=== PATIENT | male | born 1950 | race Caucasian/White ===

== ENCOUNTER 2018-03-03 05:12 | Inpatient (IN) | payer MEDICARE, BC ==
[2018-03-03 05:38] LABS: Basophils % (A) 0 %; Eosinophils # (A) 0.1 k/uL (0-0.7); Eosinophils % (A) 1 %; HCT 46.6 % (39.0-53.0); HGB 15.2 gm/dL (13.0-17.5); Lymphocytes # (A) 1.3 k/uL (1.0-4.8); Lymphocytes % (A) 15 %; MCH 30.3 pg (25.0-35.0); MCHC 32.7 g/dL (31.0-37.0); MCV 92.6 fL (80.0-100.0); Mean Platelet Volume 7.1; Monocytes # (A) 0.6 k/uL (0-1.0); Monocytes % (A) 6 %; Neutrophils # (A) 6.4 k/uL (1.3-7.7); Neutrophils % (A) 75 %; Platelet Count 219 k/uL (150-450); RBC 5.03 m/uL (4.30-5.90); RDW 13.4 % (11.5-15.5); WBC 8.6 k/uL (3.8-10.6)
--- NOTE | 2018-03-03 05:40 | ED ---
General Adult HPI - General Chief complaint: Chest Pain Stated complaint: Chest Pain Time Seen by Provider: 03/03/18 05:14 Source: patient, RN notes reviewed, old records reviewed Mode of arrival: ambulatory Limitations: no limitations - History of Present Illness Initial comments: 67-year-old male history of CAD status post stenting presents with chest pain and left arm numbness. Patient states his symptoms today are exactly the same as his previous heart attacks. He has been having some chest pain both at rest and with exertion over the past several weeks. He was seen by his dry cleaning checker who did a stress test. Patient was told that if his symptoms persist that he would need a heart catheterization. His most recent heart catheterization was in June 2017 where he had stenting of the obtuse marginal branch. He is a type II diabetic. Remote history of tobacco use. He is chest pain-free at the time my evaluation. His chest pain was resolved with nitroglycerin. Pain is described as a central chest pressure with radiation of the left arm. - Related Data Home Medications Medication Instructions Recorded Confirmed Canagliflozin [Invokana] 300 mg PO AC-BRKFST 01/28/16 03/03/18 Dulaglutide [Trulicity] 1.5 mg SQ WE 01/28/16 03/03/18 Lisinopril [Prinivil] 5 mg PO DAILY 06/18/17 03/03/18 Metoprolol Tartrate 25 mg PO DAILY 06/18/17 03/03/18 glipiZIDE XL [Glucotrol XL] 20 mg PO W/BRKFST 06/18/17 03/03/18 metFORMIN HCL 1,000 mg PO DAILY 06/18/17 03/03/18 Omeprazole 20 mg PO DAILY 06/25/17 03/03/18 Atorvastatin [Lipitor] 40 mg PO DAILY 03/03/18 03/03/18 Isosorbide Mononitrate ER [Imdur] 30 mg PO DAILY 03/03/18 03/03/18 Previous Rx's Medication Instructions Recorded Nitroglycerin Sl Tabs [Nitrostat] 0.4 mg SUBLINGUAL Q5M PRN #1 bottle 04/10/16 Aspirin EC [Ecotrin] 325 mg PO DAILY #30 tablet. 06/28/17 Prasugrel [Effient] 10 mg PO DAILY #30 tab 06/28/17 Tadalafil [Cialis] 20 mg PO ONCE PRN #0 06/28/17 Allergies Allergy/AdvReac Type Severity Reaction Status Date / Time Penicillins Allergy Unknown Rash/Hives Verified 03/03/18 05:17 Review of Systems ROS Statement: Those systems with pertinent positive or pertinent negative responses have been documented in the HPI. ROS Other: All systems not noted in ROS Statement are negative. Past Medical History Past Medical History: Coronary Artery Disease (CAD), Chest Pain / Angina, Diabetes Mellitus, GERD/Reflux, Hyperlipidemia, Hypertension, Myocardial Infarction ([place]) Additional Past Medical History / Comment(s): NIDDM, L ear deafness Last Myocardial Infarction Date:: 04/22/16 History of Any Multi-Drug Resistant Organisms: None Reported Past Surgical History: Ear Surgery, Heart Catheterization With Stent, Orthopedic Surgery, Tonsillectomy Additional Past Surgical History / Comment(s): 01/28/16 PTCA and stent and April 2016, L ear mastoid surgery, colonoscopies/polypectomies, L hand index finger amputated Past Anesthesia/Blood Transfusion Reactions: No Reported Reaction Date of Last Stent Placement:: 04/22/16 Past Psychological History: Anxiety Smoking Status: Former smoker Past Alcohol Use History: Occasional Past Drug Use History: None Reported - Past Family History Father Family Medical History: Cancer, Coronary Artery Disease (CAD) Additional Family Medical History / Comment(s): Father had CABG. He of esophageal cancer at the age of 79 yrs. Mother Family Medical History: Congestive Heart Failure (CHF), Osteoarthritis (OA) Additional Family Medical History / Comment(s): Mother is 86yrs old General Exam Limitations: no limitations General appearance: alert, in no apparent distress Head exam: Present: atraumatic, normocephalic Eye exam: Present: normal appearance, PERRL ENT exam: Present: normal exam Neck exam: Present: normal inspection. Absent: tenderness, meningismus Respiratory exam: Present: normal lung sounds bilaterally. Absent: respiratory distress, wheezes Cardiovascular Exam: Present: regular rate, normal rhythm GI/Abdominal exam: Present: soft. Absent: distended, tenderness, guarding Extremities exam: Present: normal inspection, normal capillary refill, other ( Bilateral DP pulses 2+ and symmetric). Absent: pedal edema Neurological exam: Present: alert, oriented X3, CN II-XII intact. Absent: motor sensory deficit Psychiatric exam: Present: normal affect, normal mood Skin exam: Present: warm, dry. 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 EKG Findings - EKG Comments: EKG Findings:: EKG: Normal sinus rhythm, inferior infarct with Q waves in inferior leads, no ST segment elevation or depression. T waves are upright in the precordial leads. Rate of 78, NM interval 168, QRS duration 84, QTC 4:30 Medical Decision Making - Medical Decision Making 67-year-old male presenting with chest pain. History is concerning for ACS. EKG shows Q waves in the inferior leads with no ST segment elevation. Patient' s CBC is unremarkable. Initial troponin is 0.015. Patient is given an aspirin , he is started on heparin. He will be admitted for cardiology evaluation. Diagnosis: Unstable angina. - Lab Data Result diagrams: 03/03/18 05:26 03/03/18 05:26 Lab Results 03/03/18 03/03/18 03/03/18 Range/Units 05:26 05:26 05:26 WBC 8.6 (3.8-10.6) k/uL RBC 5.03 (4.30-5.90) m/uL Hgb 15.2 (13.0-17.5) gm/dL Hct 46.6 (39.0-53.0) % MCV 92.6 (80.0-100.0) fL MCH 30.3 (25.0-35.0) pg MCHC 32.7 (31.0-37.0) g/dL RDW 13.4 (11.5-15.5) % Plt Count 219 (150-450) k/uL Neutrophils % 75 % Lymphocytes % 15 % Monocytes % 6 % Eosinophils % 1 % Basophils % 0 % Neutrophils # 6.4 (1.3-7.7) k/uL Lymphocytes # 1.3 (1.0-4.8) k/uL Monocytes # 0.6 (0-1.0) k/uL Eosinophils # 0.1 (0-0.7) k/uL Basophils # 0.0 (0-0.2) k/uL Sodium 140 (137-145) mmol/L Potassium 4.5 (3.5-5.1) mmol/L Chloride 102 (98-107) mmol/L Carbon Dioxide 22 (22-30) mmol/L Anion Gap 16 mmol/L BUN 27 H (9-20) mg/dL Creatinine 0.90 (0.66-1.25) mg/dL Est GFR (CKD-EPI)AfAm >90 (>60 ml/min/1.73 sqM) Est GFR (CKD-EPI)NonAf 89 (>60 ml/min/1.73 sqM) Glucose 132 H (74-99) mg/dL Calcium 10.2 (8.4-10.2) mg/dL Magnesium 2.2 (1.6-2.3) mg/dL Total Bilirubin 0.7 (0.2-1.3) mg/dL AST 27 (17-59) U/L ALT 34 (21-72) U/L Alkaline Phosphatase 90 (38-126) U/L Total Creatine Kinase 69 (55-170) U/L CK-MB (CK-2) 2.0 (0.0-2.4) ng/mL CK-MB (CK-2) Rel Index 2.9 Troponin I 0.015 (0.000-0.034) ng/mL NT-Pro-B Natriuret Pep pg/mL Total Protein 7.5 (6.3-8.2) g/dL Albumin 4.9 (3.5-5.0) g/dL Lipase 175 (23-300) U/L 03/03/18 Range/Units 05:26 WBC (3.8-10.6) k/uL RBC (4.30-5.90) m/uL Hgb (13.0-17.5) gm/dL Hct (39.0-53.0) % MCV (80.0-100.0) fL MCH (25.0-35.0) pg MCHC (31.0-37.0) g/dL RDW (11.5-15.5) % Plt Count (150-450) k/uL Neutrophils % % Lymphocytes % % Monocytes % % Eosinophils % % Basophils % % Neutrophils # (1.3-7.7) k/uL Lymphocytes # (1.0-4.8) k/uL Monocytes # (0-1.0) k/uL Eosinophils # (0-0.7) k/uL Basophils # (0-0.2) k/uL Sodium (137-145) mmol/L Potassium (3.5-5.1) mmol/L Chloride (98-107) mmol/L Carbon Dioxide (22-30) mmol/L Anion Gap mmol/L BUN (9-20) mg/dL Creatinine (0.66-1.25) mg/dL Est GFR (CKD-EPI)AfAm (>60 ml/min/1.73 sqM) Est GFR (CKD-EPI)NonAf (>60 ml/min/1.73 sqM) Glucose (74-99) mg/dL Calcium (8.4-10.2) mg/dL Magnesium (1.6-2.3) mg/dL Total Bilirubin (0.2-1.3) mg/dL AST (17-59) U/L ALT (21-72) U/L Alkaline Phosphatase (38-126) U/L Total Creatine Kinase (55-170) U/L CK-MB (CK-2) (0.0-2.4) ng/mL CK-MB (CK-2) Rel Index Troponin I (0.000-0.034) ng/mL NT-Pro-B Natriuret Pep 149 pg/mL Total Protein (6.3-8.2) g/dL Albumin (3.5-5.0) g/dL Lipase (23-300) U/L Critical Care Time Critical Care Time: Yes Disposition Clinical Impression: Unstable angina pectoris, Chest pain Disposition: ADMITTED IP TO THIS [facility] Condition: Stable Is patient prescribed a controlled substance at d/c from ED?: No Referrals: Francy Hermosillo DO [Primary Care Provider] - 1-2 days Decision to Admit Reason: Admit from EC Decision Date: 03/03/18 Decision Time: 07:01
[2018-03-03 05:48] LABS: ALT 34 U/L (21-72); AST 27 U/L (17-59); Albumin 4.9 g/dL (3.5-5.0); Alkaline Phosphatase 90 U/L (38-126); Anion Gap 16 mmol/L; Blood Urea Nitrogen 27 mg/dL (9-20); Calcium 10.2 mg/dL (8.4-10.2); Carbon Dioxide 22 mmol/L (22-30); Chloride 102 mmol/L (98-107); Glucose 132 mg/dL (74-99); Lipase 175 U/L (23-300); Magnesium 2.2 mg/dL (1.6-2.3); Potassium 4.5 mmol/L (3.5-5.1); Sodium 140 mmol/L (137-145); Total Bilirubin 0.7 mg/dL (0.2-1.3); Total Protein 7.5 g/dL (6.3-8.2)
--- NOTE | 2018-03-03 05:57 | XR ---
EXAMINATION TYPE: XR chest 2V DATE OF EXAM: 03/03/2018 COMPARISON: 06/25/2017 HISTORY: Chest pain TECHNIQUE: Frontal and lateral views of the chest are obtained. FINDINGS: Heart and mediastinum are normal. Lungs are clear. Diaphragm is normal. There are chest le ads. Bony thorax is intact. IMPRESSION: Normal chest. No change.
[2018-03-03] MEDS ORDERED: ASPIRIN 325 MG TAB PO STA (06:06)
[2018-03-03 06:17] LABS: Troponin I 0.015 ng/mL (0.000-0.034)
[2018-03-03] MEDS ORDERED: HEPARIN SODIUM,PORCINE 5,000 UNIT/ML 1 ML VIAL IV ONE (06:57)
[2018-03-03] MEDS ORDERED: NALOXONE 0.4 MG/ML 1 ML VIAL IV PRN (06:57)
[2018-03-03] MEDS ORDERED: ONDANSETRON 4 MG/2 ML VIAL IVP PRN (06:57)
[2018-03-03] MEDS ORDERED: HEPARIN SODIUM,PORCINE 5,000 UNIT/ML 1 ML VIAL IV PRN (06:57)
[2018-03-03] MEDS ORDERED: MORPHINE SULFATE 2 MG/ML SYRINGE IV PRN (06:57)
[2018-03-03] MEDS ORDERED: NITROGLYCERIN SL TABS 0.4 MG TAB SUBLINGUAL PRN ×2 (06:59→18:31)
[2018-03-03 07:07] LABS: INR 1.1 (<1.2); Prothrombin Time 10.4 sec (9.0-12.0)
[2018-03-03] MEDS: SODIUM CHLORIDE 0.9% 1,000 ML IV SCH ×2 (07:21→23:44)
[2018-03-03] MEDS: HEPARIN SOD,PORK IN 0.45% NACL 25,000 UNIT in 0.45% NACL 1 500ML.BAG IV SCH (07:25)
[2018-03-03 11:37] LABS: Glucose,Whole Blood 116 mg/dL (75-99)
[2018-03-03 12:24] LABS: Creatine Kinase 52 U/L (55-170)
[2018-03-03 12:36] LABS: Creatine Kinase MB 1.6 ng/mL (0.0-2.4); Troponin I <0.012 ng/mL (0.000-0.034)
--- NOTE | 2018-03-03 15:10 | P.HPIM ---
History of Present Illness H&P Date: 03/03/18 Chief Complaint: Chest pain This is a 67-year-old male with a known history of coronary artery disease with previous cardiac stent, 2 previous myocardial infarctions, diabetes mellitus type 2, smoking history, hyperlipidemia and hypertension. Last heart catheterization was in June 2017 in which she had stenting to the obtuse marginal branch. Patient presents to the emergency room with complaints of chest pressure on the right side of the chest that radiates across the chest with left arm numbness. He's had these symptoms off and on with both rest and exertion over the past several weeks. Patient had been seen by cardiology outpatient and he reports they did a stress test and was told there was some abnormality but to treat medically. And was told if symptoms recur that he may need a heart catheterization. 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 Symptoms continued to worsen and he decided to present to the ER early this morning. Patient reports improvement of his chest pain with nitroglycerin. Patient also reports having some nausea and shortness of breath. Denies any diaphoresis. Denies any cough , fever or chills. Denies any vomiting bowel movement changes or urinary symptoms. Patient reports that his symptoms feel similar to when he had his previous heart attacks. He's been admitted to the cardiology floor started on IV heparin and cardiology has been consulted. First 2 troponins are negative. EKG had shown a normal sinus rhythm with an inferior infarct, age undetermined. No significant ST changes noted. Chest x-ray was negative. Patient is also been on antibiotics recently for a left great toe cellulitis. Patient's toenail is turning black. He reports no injury. But he was being treated for a cellulitis outpatient setting. She reports no open wound. And reports being on 2 different antibiotics but is unsure of the name of the antibiotic. Nursing staff is calling patient's pharmacy to get the names of the medications. Review of Systems Please refer to HPI otherwise unremarkable Past Medical History Past Medical History: Coronary Artery Disease (CAD), Chest Pain / Angina, Diabetes Mellitus, GERD/Reflux, Hyperlipidemia, Hypertension, Myocardial Infarction ([place]) Additional Past Medical History / Comment(s): NIDDM, cardiac murmur, 2 previous MIs, L ear deafness, benign colon polyps, pt states discolored L great toe currently and on antibiotic for this. Last Myocardial Infarction Date:: 04/22/16 History of Any Multi-Drug Resistant Organisms: None Reported Past Surgical History: Adenoidectomy, Ear Surgery, Heart Catheterization With Stent, Orthopedic Surgery, Tonsillectomy Additional Past Surgical History / Comment(s): 01/28/16 PTCA and stent and April 2016 and in June 2017, L ear mastoid surgery, colonoscopies/ polypectomies, L hand index finger amputated Past Anesthesia/Blood Transfusion Reactions: No Reported Reaction Date of Last Stent Placement:: 06/28/17 Past Psychological History: Anxiety Additional Psychological History / Comment(s): Pt resides with his spouse of 43 yrs. He is independent. Smoking Status: Former smoker Past Alcohol Use History: Occasional Additional Past Alcohol Use History / Comment(s): Pt started smoking in 1985- 1 or 2 cigarettes a day. He quit in 1995. Past Drug Use History: None Reported - Past Family History Father Family Medical History: Cancer, Coronary Artery Disease (CAD) Additional Family Medical History / Comment(s): Father had CABG prior to age 50yrs. He of esophageal cancer at the age of 79 yrs. Mother Family Medical History: Congestive Heart Failure (CHF), Osteoarthritis (OA) Additional Family Medical History / Comment(s): Mother of CHF at 86yrs of age. Medications and Allergies Home Medications Medication Instructions Recorded Confirmed Type Canagliflozin [Invokana] 300 mg PO AC-BRKFST 01/28/16 03/03/18 History Dulaglutide [Trulicity] 1.5 mg SQ FR 01/28/16 03/03/18 History Nitroglycerin Sl Tabs [Nitrostat] 0.4 mg SUBLINGUAL Q5M PRN #1 bottle 04/10/16 03/03/18 Rx Lisinopril [Prinivil] 5 mg PO DAILY 06/18/17 03/03/18 History Metoprolol Tartrate 25 mg PO DAILY 06/18/17 03/03/18 History glipiZIDE XL [Glucotrol XL] 20 mg PO DAILY 06/18/17 03/03/18 History metFORMIN HCL 1,000 mg PO DAILY 06/18/17 03/03/18 History Omeprazole 20 mg PO DAILY 06/25/17 03/03/18 History Aspirin EC [Ecotrin] 325 mg PO DAILY #30 tablet. 06/28/17 03/03/18 Rx Prasugrel [Effient] 10 mg PO DAILY #30 tab 06/28/17 03/03/18 Rx Tadalafil [Cialis] 20 mg PO ONCE PRN #0 06/28/17 03/03/18 Rx Atorvastatin [Lipitor] 40 mg PO DAILY 03/03/18 03/03/18 History Isosorbide Mononitrate ER [Imdur] 30 mg PO DAILY 03/03/18 03/03/18 History Allergies Allergy/AdvReac Type Severity Reaction Status Date / Time Penicillins Allergy Unknown Rash/Hives Verified 03/03/18 07:25 Physical Exam Vitals: Vital Signs Temp Pulse Pulse Resp BP BP Pulse Ox 03/03/18 10:30 97.2 F L 63 14 107/59 97 03/03/18 09:49 68 18 119/56 99 03/03/18 08:00 68 18 119/75 99 03/03/18 07:20 70 18 122/66 99 03/03/18 05:24 78 03/03/18 05:14 98.1 F 83 18 123/73 97 Intake and Output 03/02/18 03/03/18 03/03/18 22:59 06:59 14:59 Intake Total 0 Balance 0 Intake: Oral 0 Other: Weight 81.647 kg Head normocephalic Neck supple Lungs clear to auscultation bilaterally no wheezing or crackles Heart regular rate and rhythm S1-S2, no rub or gallop Abdomen is soft nontender nondistended positive bowel sounds no hepatosplenomegaly Extremities no edema of the lower extremities. Left great toenail is discolored and blackish in color. It appears to be improving cellulitis changes around the left toe nail. Patient's PCP had marked to the cellulitis area and this is now decreased. No open sores. Mildly tender with palpation of the toenail Neuro alert and orientated to 3 Results CBC & Chem 7: 03/03/18 05:26 03/03/18 05:26 Labs: Abnormal Lab Results - Last 24 Hours (Table) 03/03/18 03/03/18 03/03/18 Range/Units 05:26 11:17 11:23 APTT (22.0-30.0) sec BUN 27 H (9-20) mg/dL Glucose 132 H (74-99) mg/dL POC Glucose (mg/dL) 116 H (75-99) mg/dL Total Creatine Kinase 52 L (55-170) U/L 03/03/18 Range/Units 14:18 APTT 44.0 H (22.0-30.0) sec BUN (9-20) mg/dL Glucose (74-99) mg/dL POC Glucose (mg/dL) (75-99) mg/dL Total Creatine Kinase (55-170) U/L Thrombosis Risk Factor Assmnt - Choose All That Apply Any of the Below Risk Factors Present?: Yes Other Risk Factors: Yes Each Risk Factor Represents 2 Points: Age 61-74 years Other congenital or acquired thrombophilia - If yes, enter type in comment: No Thrombosis Risk Factor Assessment Total Risk Factor Score: 2 Thrombosis Risk Factor Assessment Level: Low Risk Assessment and Plan Assessment: 1. Chest pain with left arm numbness: First 2 troponins are negative 2. EKG showing normal sinus rhythm with inferior infarct age undetermined. Chest x- rays negative. Patient started on IV heparin and cardiology consulted. Last heart catheterization June 2017 with stenting to the obtuse marginal branch 2. History of coronary artery disease with cardiac stent 3. History of myocardial infarction 2 4. Diabetes mellitus type 2: Patient's home medications are nonformulary. At this time able to resume his glipizide and will add sliding scale coverage. Hold metformin during hospitalization 5. Hyperlipidemia: Continue Lipitor 6. Essential hypertension: Resume lisinopril and Lopressor 7. Left great toe cellulitis had been on antibiotics in the outpatient setting. Nursing is clarified with pharmacy which antibiotics patient was on. Consult infectious disease for further evaluation GI prophylaxis Protonix and DVT prophylaxis IV heparin Time with Patient: Greater than 30 (Greater than 60% of the total time spent in counseling and coordination of care.I performed an examination of the patient and discussed their management with the physician Research Laboratory Technician. I have reviewed the Physician Research Laboratory Technician's notes and agree with the documented findings and plan of care)
--- NOTE | 2018-03-03 15:12 | P.CRDCN ---
History of Present Illness Consult date: 03/03/18 Requesting physician: Heidy Ramos Consult reason: chest pain Chief complaint: Chest pain History of present illness: 6 is a 67-year-old gentleman with history of diabetes, hypertension, hyperlipidemia, coronary artery disease with prior stent placements, he follows with Dr. Perales in the office. He presents to the hospital with symptoms of chest discomfort. According to the patient approximately 2-1/2 weeks ago he states that he was noticing a discomfort in his upper back and scapular area, also states that he noticed himself to be short of breath without doing any physical activities at all. He denied having any left arm discomfort at that time. 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 After arriving home he developed left arm discomfort similar to what he recalls having with his prior stent placements. For this reason he came to the emergency room for further evaluation. According to the patient, because of the non-exertional shortness of breath symptoms he's been having, he did see Dr. Perales in the office who performed a stress test according to the patient, he also had a follow-up appointment with Dr. Perales after that and was continued on current therapy. Dr. Perales did mention to the patient at that time according to the patient, if he had recurrent symptoms that he would repeat a cardiac catheterization. EKG on arrival here showed a normal sinus rhythm with no acute changes. Chest x-ray was normal. Blood pressure 108/60, heart rate in the 60s, 97% on 2 L of oxygen. CBC is normal. Sodium 140, potassium 4.5, BUN 27, creatinine 0.9. Troponin 0.015, 0.012. Patient was initiated on IV heparin in the emergency room, at the time of my examination he denies any chest discomfort. Past Medical History Past Medical History: Coronary Artery Disease (CAD), Chest Pain / Angina, Diabetes Mellitus, GERD/Reflux, Hyperlipidemia, Hypertension, Myocardial Infarction ([place]) Additional Past Medical History / Comment(s): NIDDM, cardiac murmur, 2 previous MIs, L ear deafness, benign colon polyps, pt states discolored L great toe currently and on antibiotic for this. Last Myocardial Infarction Date:: 04/22/16 History of Any Multi-Drug Resistant Organisms: None Reported Past Surgical History: Adenoidectomy, Ear Surgery, Heart Catheterization With Stent, Orthopedic Surgery, Tonsillectomy Additional Past Surgical History / Comment(s): 01/28/16 PTCA and stent and April 2016 and in June 2017, L ear mastoid surgery, colonoscopies/ polypectomies, L hand index finger amputated Past Anesthesia/Blood Transfusion Reactions: No Reported Reaction Date of Last Stent Placement:: 06/28/17 Past Psychological History: Anxiety Additional Psychological History / Comment(s): Pt resides with his spouse of 43 yrs. He is independent. Smoking Status: Former smoker Past Alcohol Use History: Occasional Additional Past Alcohol Use History / Comment(s): Pt started smoking in 1985- 1 or 2 cigarettes a day. He quit in 1995. Past Drug Use History: None Reported - Past Family History Father Family Medical History: Cancer, Coronary Artery Disease (CAD) Additional Family Medical History / Comment(s): Father had CABG prior to age 50yrs. He of esophageal cancer at the age of 79 yrs. Mother Family Medical History: Congestive Heart Failure (CHF), Osteoarthritis (OA) Additional Family Medical History / Comment(s): Mother of CHF at 86yrs of age. Medications and Allergies Home Medications Medication Instructions Recorded Confirmed Type Canagliflozin [Invokana] 300 mg PO AC-BRKFST 01/28/16 03/03/18 History Dulaglutide [Trulicity] 1.5 mg SQ FR 01/28/16 03/03/18 History Nitroglycerin Sl Tabs [Nitrostat] 0.4 mg SUBLINGUAL Q5M PRN #1 bottle 04/10/16 03/03/18 Rx Lisinopril [Prinivil] 5 mg PO DAILY 06/18/17 03/03/18 History Metoprolol Tartrate 25 mg PO DAILY 06/18/17 03/03/18 History glipiZIDE XL [Glucotrol XL] 20 mg PO DAILY 06/18/17 03/03/18 History metFORMIN HCL 1,000 mg PO DAILY 06/18/17 03/03/18 History Omeprazole 20 mg PO DAILY 06/25/17 03/03/18 History Aspirin EC [Ecotrin] 325 mg PO DAILY #30 tablet. 06/28/17 03/03/18 Rx Prasugrel [Effient] 10 mg PO DAILY #30 tab 06/28/17 03/03/18 Rx Tadalafil [Cialis] 20 mg PO ONCE PRN #0 06/28/17 03/03/18 Rx Atorvastatin [Lipitor] 40 mg PO DAILY 03/03/18 03/03/18 History Isosorbide Mononitrate ER [Imdur] 30 mg PO DAILY 03/03/18 03/03/18 History Allergies Allergy/AdvReac Type Severity Reaction Status Date / Time Penicillins Allergy Unknown Rash/Hives Verified 03/03/18 07:25 Physical Exam Vitals: Vital Signs Temp Pulse Pulse Resp BP BP Pulse Ox 03/03/18 10:30 97.2 F L 63 14 107/59 97 03/03/18 09:49 68 18 119/56 99 03/03/18 08:00 68 18 119/75 99 03/03/18 07:20 70 18 122/66 99 03/03/18 05:24 78 03/03/18 05:14 98.1 F 83 18 123/73 97 Intake and Output 03/03/18 03/03/18 03/03/18 06:59 14:59 22:59 Intake Total 0 Balance 0 Intake: Oral 0 Other: Weight 81.647 kg PHYSICAL EXAMINATION: GENERAL: 67-year-old gentleman with no apparent distress at the time of my examination HEENT: Head is atraumatic, normocephalic. Pupils equal, round. Sclera anicteric. Conjunctiva are clear. Mucous membranes of the mouth are moist. Neck is supple. There is no elevated jugular venous pressure.] bruit is heard. HEART EXAMINATION: Heart S1, S2 normal. No murmur or gallop heard. CHEST EXAMINATION: Lungs are clear to auscultation and precussion. No chest wall tenderness is noted on palpation or with deep breathing. ABDOMEN: Soft, nontender. Bowel sounds are heard. No organomegaly noted. EXTREMITIES: 2+ peripheral pulses with no evidence of peripheral edema and no calf tenderness noted. NEUROLOGIC patient is awake, alert and oriented ?-3. . Results 03/03/18 05:26 03/03/18 05:26 Cardiac Enzymes 03/03/18 03/03/18 03/03/18 Range/Units 05:26 05:26 11:23 AST 27 (17-59) U/L CK-MB (CK-2) 2.0 1.6 (0.0-2.4) ng/mL Troponin I 0.015 <0.012 (0.000-0.034) ng/mL Coagulation 03/03/18 03/03/18 Range/Units 06:34 14:18 PT 10.4 (9.0-12.0) sec APTT 22.0 44.0 H (22.0-30.0) sec CBC 03/03/18 Range/Units 05:26 WBC 8.6 (3.8-10.6) k/uL RBC 5.03 (4.30-5.90) m/uL Hgb 15.2 (13.0-17.5) gm/dL Hct 46.6 (39.0-53.0) % Plt Count 219 (150-450) k/uL Comprehensive Metabolic Panel 03/03/18 Range/Units 05:26 Sodium 140 (137-145) mmol/L Potassium 4.5 (3.5-5.1) mmol/L Chloride 102 (98-107) mmol/L Carbon Dioxide 22 (22-30) mmol/L BUN 27 H (9-20) mg/dL Creatinine 0.90 (0.66-1.25) mg/dL Glucose 132 H (74-99) mg/dL Calcium 10.2 (8.4-10.2) mg/dL AST 27 (17-59) U/L ALT 34 (21-72) U/L Alkaline Phosphatase 90 (38-126) U/L Total Protein 7.5 (6.3-8.2) g/dL Albumin 4.9 (3.5-5.0) g/dL Current Medications Generic Name Dose Route Start Last Admin Trade Name Freq PRN Reason Stop Dose Admin Aspirin 325 mg 03/04/18 09:00 Aspirin PO DAILY [facility] Atorvastatin Calcium 40 mg 03/03/18 14:00 Lipitor PO DAILY [facility] Glipizide 10 mg 03/04/18 09:00 Glucotrol PO BID [facility] Heparin Sodium (Porcine) 0 unit 03/03/18 06:57 Heparin IV PER PROTOCOL PRN Low PTT Protocol Heparin Sodium/Sodium Chloride 500 mls @ 19.59 mls/hr 03/03/18 07:00 06/29/ 18 07:25 25,000 unit/ Sodium Chloride IV 12 units/kg/hr .Q24H [facility] 19.59 mls/hr Administration Protocol 12 UNITS/KG/HR Sodium Chloride 1,000 mls @ 50 mls/hr 03/03/18 07:00 03/03/18 07:21 Saline 0.9% IV 50 mls/hr .Q20H [facility] Administration Insulin Aspart 0 unit 03/03/18 17:30 Novolog SQ ACHS [facility] Protocol Isosorbide Mononitrate 30 mg 03/04/18 09:00 Imdur PO DAILY [facility] Lisinopril 5 mg 03/04/18 09:00 Zestril PO DAILY [facility] Metoprolol Tartrate 25 mg 03/04/18 09:00 Lopressor PO DAILY [facility] Morphine Sulfate 4 mg 03/03/18 06:57 Morphine Sulfate (Inj) IV Q4HR PRN Severe Pain Naloxone HCl 0.2 mg 03/03/18 06:57 Narcan IV Q2M PRN Opioid Reversal Nitroglycerin 0.4 mg 03/03/18 06:59 Nitrostat SUBLINGUAL Q5M PRN Chest Pain Ondansetron HCl 4 mg 03/03/18 06:57 Zofran IVP Q8HR PRN Nausea And Vomiting Pantoprazole Sodium 40 mg 03/04/18 07:30 Protonix PO AC-BRKFST [facility] Prasugrel 10 mg 03/04/18 09:00 Effient PO DAILY [facility] Intake and Output 03/03/18 03/03/18 03/03/18 06:59 14:59 22:59 Intake Total 0 Balance 0 Intake: Oral 0 Other: Weight 81.647 kg 03/03/18 05:26 03/03/18 05:26 EKG Interpretations (text) EKG shows a normal sinus rhythm with no acute changes. Assessment and Plan Plan: Assessment and plan #1 chest pain and arm discomfort suggestive of possible acute coronary syndrome. Troponin 0.015, 0.012. EKG shows normal sinus rhythm with no acute changes. #2 known history of coronary artery disease with prior stent placements, the most recent stent procedure was performed in June 2017 at which time patient underwent successful stenting the first obtuse marginal branch of the left circumflex by Dr. Ybarra. #3 hypertension #4 diabetes #5 hyperlipidemia Plan We will obtain progress note and stress test from the office. We will also continue the patient on IV heparin and obtain a third troponin value. Echocardiogram with Doppler study will also be performed. Continue aspirin 325 mg daily, Lipitor 40 mg daily, lisinopril 5 mg daily, metoprolol 25 mg daily, Effient 10 mg daily. Patient may require repeat cardiac catheterization, the risks and benefits were explained to him again in detail, if this is recommended he is willing to proceed. Further recommendations will be based on these findings and patient's clinical course. DNP note has been reviewed, I agree with a documented findings and plan of care. Patient was seen and examined.
[2018-03-03] MEDS: ceFAZolin IN SWFI 2 GM/20 ML SYRINGE IVP SCH ×2 (16:40→23:39)
[2018-03-03] MEDS: ATORVASTATIN 40 MG TAB PO SCH (16:40)
--- NOTE | 2018-03-03 16:45 | CONS ---
CONSULTATION DATE OF SERVICE: 03/03/2018 REASON FOR CONSULTATION: Left second toe cellulitis, diabetic foot infection. HISTORY OF PRESENT ILLNESS: The patient is a 67-year-old male who had pain, swelling and redness in his left big toe that he noticed about a week ago on Tuesday. The patient did not recall any history of any trauma. The nail bed seemed to be slightly discolored with some swelling of his toe. The patient was seen by his primary care physician. He was started on oral antibiotic, which he was taking once a day. However, he did not recall the name of that antibiotic. The patient went to see him yesterday and told him he was started on a new antibiotic. However, the patient did not recall the name of the antibiotic. He came into the ER at [facility] early this morning with the chief complaint of chest pain and left arm numbness. The patient's symptoms started this morning. With the previous history of an GA, that did concern him and he was brought into the ER. The patient did have a cardiac exam which is negative so far. Cardiology was consulted for further management of underlying unstable angina. The patient was started on Bactrim DS for his left second toe cellulitis. Infectious Disease was consulted for further recommendations regarding antibiotic therapy. The patient currently denies having any fever or chills. Pain to the left big toe is more of a dull aching pain, 1 to 2 out of 10, worse with touching. No skin breakdown. No drainage. REVIEW OF SYSTEMS: CONSTITUTIONAL: Positive for weakness. No high-grade fever. EYES: No complaint. ENT: No complaint. RESPIRATORY: No complaint. CARDIOVASCULAR: As per HPI. GENITOURINARY: No complaint. GASTROINTESTINAL: No complaint. MUSCULOSKELETAL: As per HPI. INTEGUMENTARY: As per HPI. PSYCHOLOGICAL: No complaint. ENDOCRINE: No complaint. NEUROLOGICAL: No complaint. PAST MEDICAL HISTORY: 1. Type 2 diabetes mellitus. 2. Hypertension. 3. Hyperlipidemia. 4. Coronary artery disease. 5. GA. 6. . 7. Gastroesophageal reflux disease. PAST SURGICAL HISTORY: 1. Adenoidectomy. 2. PTCA, stent. 3. Tonsillectomy. 4. Ear surgery. 5. . 6. Left ear mastoid surgery. SOCIAL HISTORY: Remote history of smoking. Quit back in 1995. Occasionally drinks. No drug use. FAMILY HISTORY: Father with history of coronary artery disease who of esophageal cancer. Mother with history of osteoarthritis and congestive heart failure. ALLERGIES: PENICILLIN with a rash. No history of anaphylaxis. CURRENT MEDICATIONS: 1. Aspirin. 2. Lipitor. 3. Glucotrol. 4. Heparin. 5. NovoLog. 6. Imdur. 7. Levofloxacin. 8. Zestril. 9. Lopressor. 10.Morphine sulfate. 11.Narcan. 12.Nitrostat. 13.Zofran. 14.Protonix. PHYSICAL EXAMINATION: Blood pressure is 107/59, pulse of 63, temperature 97.2. He is 97% on 2 L nasal cannula. General description is an elderly male lying in bed in no distress. No tachypnea or accessory muscle of respiration use. HEENT examination shows no pallor or scleral icterus. Oral mucosa membrane is dry. No pharyngeal erythema or thrush. NECK: Trachea is central. No thyromegaly. LUNGS: Unlabored breathing. Clear to auscultation anteriorly. No wheeze or crackle. HEART: S1, S2. Regular rate and rhythm. ABDOMEN: Soft. No tenderness. No guarding or rigidity. EXTREMITIES: No edema of the feet. Examination of the left foot second toe shows minimal swelling, minimal discoloration of the nail bed, but no gangrenous changes. No skin breakdown. Mildly tender to touch. No drainage. Neurologically patient is awake, alert, oriented x3. Mood and affect normal. LABS: Hemoglobin is 15.1, white count of 8.6 with a BUN of 27, creatinine 0.90. Liver enzymes are normal. Electrolytes have been normal. DIAGNOSTIC IMPRESSION AND PLAN: 1. Patient with left second toe cellulitis, diabetic foot infection, failing possibly outpatient oral Levaquin therapy, as he was taking it only once a day. Currently with no evidence of any abscess or necrotic changes. Likely from a Gram-positive skin kasia. Less likely Gram-negative infection in a patient admitted to hospital with chest pain, previous history of coronary artery disease. He possibly may go for a cardiac procedure and exposure to dye; makes him at high risk of nephrotoxicity in addition to the . 2. Patient with a PENICILLIN ALLERGY with a rash. No history of anaphylaxis. There are a number of antibiotics that could be safely used. PLAN: 1. Discontinue Bactrim and Levaquin, as the patient may likely have been on outpatient Levaquin therapy, failing it. 2. Will obtain x-rays of the big toe to rule out any bony changes. 3. Will start the patient on cefazolin 2 grams q.8 hours. 4. Will follow up on his clinical condition to further adjust medication if needed. Thank you for this consultation. Will follow this patient along with you. MMODL / IJN: [id number] /
[2018-03-03 16:54] LABS: Glucose,Whole Blood 157 mg/dL (75-99)
--- NOTE | 2018-03-03 17:11 | XR ---
EXAMINATION TYPE: XR toes LT DATE OF EXAM: 03/03/2018 COMPARISON: NONE HISTORY: 67 year-old male left big toe swelling TECHNIQUE: 3 views coned on left great toe FINDINGS: Moderate to severe degenerative change at the first MTP joint with prominent degenerative spurring. N o acute fracture, subluxation, or dislocation seen. IMPRESSION: Hallux rigidus with moderate to advanced osteoarthrosis. No acute osseous abnormality seen.
[2018-03-03 17:22] LABS: Creatine Kinase 50 U/L (55-170)
[2018-03-03 17:33] LABS: Creatine Kinase MB 1.9 ng/mL (0.0-2.4); Troponin I <0.012 ng/mL (0.000-0.034)
[2018-03-03] MEDS: INSULIN ASPART 100 UNIT/ML 1 ML 10 ML VIAL SQ SCH ×2 (18:14→21:33)
[2018-03-03] MEDS ORDERED: ALPRAZolam 0.25 MG TAB PO PRN (18:31)
[2018-03-03] MEDS ORDERED: ALPRAZolam 0.5 MG TAB PO PRN (18:31)
[2018-03-03] MEDS ORDERED: SODIUM CHLORIDE 0.9% 1,000 ML in EMPTY BAG 1 BAG IV ONE (18:31)
[2018-03-03 20:22] LABS: Glucose,Whole Blood 287 mg/dL (75-99)
[2018-03-03] MEDS ORDERED: SULFAMETHOX-TMP 800-160MG 1 EACH TAB PO SCH (21:00)
[2018-03-04] MEDS: HEPARIN SOD,PORK IN 0.45% NACL 25,000 UNIT in 0.45% NACL 1 500ML.BAG IV SCH (05:45)
[2018-03-04 05:56] LABS: Glucose,Whole Blood 204 mg/dL (75-99)
[2018-03-04 06:35] LABS: Basophils % (A) 1 %; Eosinophils # (A) 0.1 k/uL (0-0.7); Eosinophils % (A) 2 %; HCT 41.2 % (39.0-53.0); HGB 13.4 gm/dL (13.0-17.5); Lymphocytes # (A) 1.3 k/uL (1.0-4.8); Lymphocytes % (A) 21 %; MCH 30.4 pg (25.0-35.0); MCHC 32.4 g/dL (31.0-37.0); MCV 93.7 fL (80.0-100.0); Mean Platelet Volume 7.4; Monocytes # (A) 0.4 k/uL (0-1.0); Monocytes % (A) 6 %; Neutrophils # (A) 4.4 k/uL (1.3-7.7); Neutrophils % (A) 69 %; Platelet Count 208 k/uL (150-450); RDW 13.3 % (11.5-15.5); WBC 6.4 k/uL (3.8-10.6)
[2018-03-04] MEDS: PANTOPRAZOLE 40 MG TABLET PO SCH (06:51)
[2018-03-04] MEDS: INSULIN ASPART 100 UNIT/ML 1 ML 10 ML VIAL SQ SCH ×4 (06:51→20:30)
[2018-03-04 07:13] LABS: Anion Gap 12 mmol/L; Blood Urea Nitrogen 20 mg/dL (9-20); Calcium 8.7 mg/dL (8.4-10.2); Carbon Dioxide 21 mmol/L (22-30); Chloride 106 mmol/L (98-107); Glucose 207 mg/dL (74-99); Potassium 4.6 mmol/L (3.5-5.1); Sodium 139 mmol/L (137-145)
[2018-03-04] MEDS ORDERED: LEVOFLOXACIN 750 MG TAB PO SCH (09:00)
--- NOTE | 2018-03-04 09:05 | P.PN ---
Subjective Progress Note Date: 03/04/18 Principal diagnosis: Chest pain This is a pleasant 67-year-old gentleman who sees Dr. Perales in the office as an outpatient with a past medical history significant for CAD and prior stenting of the LAD with the last intervention in June 2017 were I did perform stenting of the left circumflex as well as hypertension and dyslipidemia presented to the hospital complaining of chest discomfort. The patient was ruled out for acute coronary event. The EKG showed sinus rhythm with old inferior AZ and nonspecific changes in the inferior leads. The cardiac enzymes were checked and came in to be normal. Because of the recurrent chest discomfort a heart catheterization was recommended. The patient is a scheduled to undergo a heart catheterization this coming Tuesday by Dr. Perales. Objective - Vital Signs Vital signs: Vital Signs Temp 96.3 F L 03/03/18 20:00 Pulse 69 03/04/18 04:00 Resp 18 03/04/18 08:00 BP 105/58 03/04/18 04:00 Pulse Ox 96 03/04/18 04:00 Intake & Output 03/03/18 03/04/18 03/04/18 18:59 06:59 18:59 Intake Total 420.555 499.847 180 Output Total 850 2 Balance -429.445 497.847 180 Weight 81.3 kg Intake: Intake, IV Titration 180.555 299.847 Amount Heparin Sod,Pork in 0.45% 180.555 299.847 NaCl 25,000 unit In 0.45 % NaCl 1 500ml.bag @ 12 UNITS/KG/HR 19.59 mls/hr IV .Q24H [facility] Rx#: [id number] Oral 240 200 180 Output: Urine 850 2 Other: # Voids 1 1 - Constitutional General appearance: Present: no acute distress - Respiratory Respiratory: bilateral: CTA - Cardiovascular Rhythm: regular Heart sounds: normal: S1, S2 - Labs CBC & Chem 7: 03/04/18 06:03 03/04/18 06:03 Labs: Abnormal Lab Results - Last 24 Hours (Table) 03/03/18 03/03/18 03/03/18 Range/Units 11:17 11:23 14:18 APTT 44.0 H (22.0-30.0) sec Carbon Dioxide (22-30) mmol/L Glucose (74-99) mg/dL POC Glucose (mg/dL) 116 H (75-99) mg/dL Total Creatine Kinase 52 L (55-170) U/L 03/03/18 03/03/18 03/03/18 Range/Units 16:21 16:46 20:21 APTT (22.0-30.0) sec Carbon Dioxide (22-30) mmol/L Glucose (74-99) mg/dL POC Glucose (mg/dL) 157 H 287 H (75-99) mg/dL Total Creatine Kinase 50 L (55-170) U/L 03/03/18 03/04/18 03/04/18 Range/Units 22:30 05:55 06:03 APTT 46.1 H (22.0-30.0) sec Carbon Dioxide 21 L (22-30) mmol/L Glucose 207 H (74-99) mg/dL POC Glucose (mg/dL) 204 H (75-99) mg/dL Total Creatine Kinase (55-170) U/L 03/04/18 Range/Units 06:03 APTT 52.3 H (22.0-30.0) sec Carbon Dioxide (22-30) mmol/L Glucose (74-99) mg/dL POC Glucose (mg/dL) (75-99) mg/dL Total Creatine Kinase (55-170) U/L Microbiology - Last 24 Hours (Table) 03/03/18 17:42 Urine Culture - Preliminary Urine,Voided Assessment and Plan Assessment: Assessment #1 recurrent chest discomfort #2 known history of coronary artery disease and prior stenting of the LAD and RCA as described above Plan #1 the patient is scheduled to undergo a heart catheterization this coming Tuesday #2 I will obtain the results of the last stress test from the office which was performed recently. Thank you for allowing us participate in his care
--- NOTE | 2018-03-04 09:38 | ECHOF ---
Referral Reason:chest pain MEASUREMENTS -------- HEIGHT: 180.3 cm WEIGHT: 81.6 kg BP: 107/59 RVIDd: 3.4 cm (< 3.3) IVSd: 1.1 cm (0.6 - 1.1) LVIDd: 4.6 cm (3.9 - 5.3) LVPWd: 1.2 cm (0.6 - 1.1) IVSs: 1.4 cm LVIDs: 3.1 cm LVPWs: 1.5 cm LAESV Index (A-L): 15.53 ml/m Ao Diam: 3.3 cm (2.0 - 3.7) AV Cusp: 1.9 cm (1.5 - 2.6) LA Diam: 3.0 cm (2.7 - 3.8) EPSS: 0.6 cm MV E Adam: 0.80 m/s MV DecT: 212 ms MV A Adam: 0.96 m/s MV E/A Ratio: 0.84 RAP: 5.00 mmHg RVSP: 27.35 mmHg MV EF SLOPE: 97.60 mm/s (70 - 150) MV EXCURSION: 1.76 cm (> 18.000) FINDINGS -------- Sinus rhythm. This was a technically adequate study. The left ventricular size is normal. There is mild concentric left ventricular hypertrophy. Overa ll left ventricular systolic function is normal with, an EF between 55 - 60 %. The right ventricle is mildly enlarged. Normal LA size by volume 22+/-6 ml/m2. RA appears enlarged. Aortic valve is trileaflet and is mildly thickened. There is no evidence of aortic regurgitation. There is no evidence of aortic stenosis. The mitral valve leaflets are mildly thickened. There is trace to mild mitral regurgitation. Trace tricuspid regurgitation present. Right ventricular systolic pressure is normal at < 35 mmHg. There is no evidence of pulmonary hypertension. Trace/mild (physiologic) pulmonic regurgitation. The aortic root size is normal. Normal inferior vena cava with normal inspiratory collapse consistent with estimated right atrial pre ssure of 5 mmHg. There is no pericardial effusion. CONCLUSIONS -------- 1. Sinus rhythm. 2. This was a technically adequate study. 3. The left ventricular size is normal. 4. There is mild concentric left ventricular hypertrophy. 5. Overall left ventricular systolic function is normal with, an EF between 55 - 60 %. 6. The right ventricle is mildly enlarged. 7. Normal LA size by volume 22+/-6 ml/m2. 8. RA appears enlarged. 9. Aortic valve is trileaflet and is mildly thickened. 10. The mitral valve leaflets are mildly thickened. 11. There is trace to mild mitral regurgitation. 12. Trace tricuspid regurgitation present. 13. Right ventricular systolic pressure is normal at < 35 mmHg. 14. There is no evidence of pulmonary hypertension. 15. Trace/mild (physiologic) pulmonic regurgitation. 16. The aortic root size is normal. 17. There is no pericardial effusion. TIPPLE OILER: Joce Cantu RDCS
[2018-03-04] MEDS: ceFAZolin IN SWFI 2 GM/20 ML SYRINGE IVP SCH (10:12)
[2018-03-04] MEDS: PRASUGREL 10 MG TAB PO SCH (10:13)
[2018-03-04] MEDS: LISINOPRIL 5 MG TAB PO SCH (10:13)
[2018-03-04] MEDS: ATORVASTATIN 40 MG TAB PO SCH (10:13)
[2018-03-04] MEDS: ASPIRIN 325 MG TAB PO SCH (10:13)
[2018-03-04] MEDS: glipiZIDE 10 MG TAB PO SCH ×2 (10:13→20:30)
[2018-03-04] MEDS: ISOSORBIDE MONONITRATE ER 30 MG TAB.ER.24H PO SCH (10:13)
[2018-03-04] MEDS: METOPROLOL TARTRATE 25 MG TAB PO SCH (10:20)
[2018-03-04 12:02] LABS: Glucose,Whole Blood 226 mg/dL (75-99)
--- NOTE | 2018-03-04 12:32 | P.PN ---
Subjective Progress Note Date: 03/04/18 This is a 67-year-old male with a known history of coronary artery disease with previous cardiac stent, 2 previous myocardial infarctions, diabetes mellitus type 2, smoking history, hyperlipidemia and hypertension. Last heart catheterization was in June 2017 in which she had stenting to the obtuse marginal branch. Patient presents to the emergency room with complaints of chest pressure on the right side of the chest that radiates across the chest with left arm numbness. He's had these symptoms off and on with both rest and exertion over the past several weeks. Patient had been seen by cardiology outpatient and he reports they did a stress test and was told there was some abnormality but to treat medically. And was told if symptoms recur that he may need a heart catheterization. 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 Symptoms continued to worsen and he decided to present to the ER early this morning. Patient reports improvement of his chest pain with nitroglycerin. Patient also reports having some nausea and shortness of breath. Denies any diaphoresis. Denies any cough , fever or chills. Denies any vomiting bowel movement changes or urinary symptoms. Patient reports that his symptoms feel similar to when he had his previous heart attacks. He's been admitted to the cardiology floor started on IV heparin and cardiology has been consulted. First 2 troponins are negative. EKG had shown a normal sinus rhythm with an inferior infarct, age undetermined. No significant ST changes noted. Chest x-ray was negative. Patient is also been on antibiotics recently for a left great toe cellulitis. Patient's toenail is turning black. He reports no injury. But he was being treated for a cellulitis outpatient setting. She reports no open wound. And reports being on 2 different antibiotics but is unsure of the name of the antibiotic. Nursing staff is calling patient's pharmacy to get the names of the medications. On 03/04/2018 patient is alert and oriented 3 in no apparent distress he is complaining of tingling in his body after he received IV antibiotic dose otherwise he denies any symptoms at this time there is no chest pain or shortness of breath no cough no headache or dizziness no nausea or vomiting no abdominal pain no diarrhea or constipation and no urinary symptoms. Objective - Vital Signs Vital signs: Vital Signs Temp 97.2 F L 03/04/18 08:00 Pulse 65 03/04/18 08:00 Resp 18 03/04/18 08:00 BP 118/64 03/04/18 08:00 Pulse Ox 96 03/04/18 08:00 Intake & Output 03/03/18 03/04/18 03/04/18 18:59 06:59 18:59 Intake Total 420.555 499.847 180 Output Total 850 2 Balance -429.445 497.847 180 Weight 81.3 kg Intake: Intake, IV Titration 180.555 299.847 Amount Heparin Sod,Pork in 0.45% 180.555 299.847 NaCl 25,000 unit In 0.45 % NaCl 1 500ml.bag @ 12 UNITS/KG/HR 19.59 mls/hr IV .Q24H [facility] Rx#: [id number] Oral 240 200 180 Output: Urine 850 2 Other: # Voids 1 1 - Exam In general patient is alert and oriented 3 in no apparent distress HEENT head normocephalic and atraumatic Neck is supple no JVD no goiter no lymphadenopathy Chest exam reveals a few scattered crackles bilaterally no wheezing Cardiac exam reveals regular heart sounds S1 and S2 no gallops no murmurs Abdomen is soft nontender no organomegaly with normal bowel sounds Extremity exam reveals no edema no cyanosis or clubbing, Redness on the left great toe is receding - Labs CBC & Chem 7: 03/04/18 06:03 03/04/18 06:03 Labs: Abnormal Lab Results - Last 24 Hours (Table) 03/03/18 03/03/18 03/03/18 Range/Units 11:23 14:18 16:21 APTT 44.0 H (22.0-30.0) sec Carbon Dioxide (22-30) mmol/L Glucose (74-99) mg/dL POC Glucose (mg/dL) 157 H (75-99) mg/dL Total Creatine Kinase 52 L (55-170) U/L 03/03/18 03/03/18 03/03/18 Range/Units 16:46 20:21 22:30 APTT 46.1 H (22.0-30.0) sec Carbon Dioxide (22-30) mmol/L Glucose (74-99) mg/dL POC Glucose (mg/dL) 287 H (75-99) mg/dL Total Creatine Kinase 50 L (55-170) U/L 03/04/18 03/04/18 03/04/18 Range/Units 05:55 06:03 06:03 APTT 52.3 H (22.0-30.0) sec Carbon Dioxide 21 L (22-30) mmol/L Glucose 207 H (74-99) mg/dL POC Glucose (mg/dL) 204 H (75-99) mg/dL Total Creatine Kinase (55-170) U/L 03/04/18 Range/Units 11:59 APTT (22.0-30.0) sec Carbon Dioxide (22-30) mmol/L Glucose (74-99) mg/dL POC Glucose (mg/dL) 226 H (75-99) mg/dL Total Creatine Kinase (55-170) U/L Microbiology - Last 24 Hours (Table) 03/03/18 17:42 Urine Culture - Preliminary Urine,Voided Assessment and Plan Plan: 1. Chest pain with left arm numbness: First 2 troponins are negative 2. EKG showing normal sinus rhythm with inferior infarct age undetermined. Chest x- rays negative. Patient started on IV heparin and cardiology consulted. Last heart catheterization June 2017 with stenting to the obtuse marginal branch. Dr. Shoemaker is planning cardiac catheterization on Tuesday 2. History of coronary artery disease with cardiac stent 3. History of myocardial infarction 2 4. Diabetes mellitus type 2: Patient's home medications are nonformulary. At this time able to resume his glipizide and will add sliding scale coverage. Hold metformin during hospitalization 5. Hyperlipidemia: Continue Lipitor 6. Essential hypertension: Resume lisinopril and Lopressor 7. Left great toe cellulitis had been on antibiotics in the outpatient setting. Nursing is clarified with pharmacy which antibiotics patient was on. Consult infectious disease for further evaluation. Patient was evaluated by Dr. Groves infectious disease was started on cefazolin 2 g IV every 8 hours however he started having feeling of tingling in his body, he has known history of penicillin ALLERGY, at this time will discontinue cefazolin, and notify Dr. Groves. GI prophylaxis Protonix and DVT prophylaxis IV heparin
[2018-03-04 17:01] LABS: Glucose,Whole Blood 119 mg/dL (75-99)
[2018-03-04 20:08] LABS: Glucose,Whole Blood 143 mg/dL (75-99)
[2018-03-05 06:03] LABS: Glucose,Whole Blood 202 mg/dL (75-99)
[2018-03-05 06:19] LABS: Basophils % (A) 1 %; Eosinophils # (A) 0.1 k/uL (0-0.7); Eosinophils % (A) 1 %; HCT 38.3 % (39.0-53.0); HGB 12.5 gm/dL (13.0-17.5); Lymphocytes # (A) 1.5 k/uL (1.0-4.8); Lymphocytes % (A) 28 %; MCH 30.7 pg (25.0-35.0); MCHC 32.8 g/dL (31.0-37.0); MCV 93.7 fL (80.0-100.0); Mean Platelet Volume 7.2; Monocytes # (A) 0.4 k/uL (0-1.0); Monocytes % (A) 7 %; Neutrophils # (A) 3.3 k/uL (1.3-7.7); Neutrophils % (A) 61 %; Platelet Count 199 k/uL (150-450); RBC 4.08 m/uL (4.30-5.90); RDW 13.4 % (11.5-15.5); WBC 5.4 k/uL (3.8-10.6)
[2018-03-05] MEDS: HEPARIN SOD,PORK IN 0.45% NACL 25,000 UNIT in 0.45% NACL 1 500ML.BAG IV SCH (06:37)
[2018-03-05 06:38] LABS: Anion Gap 10 mmol/L; Blood Urea Nitrogen 18 mg/dL (9-20); Calcium 8.6 mg/dL (8.4-10.2); Carbon Dioxide 25 mmol/L (22-30); Chloride 106 mmol/L (98-107); Glucose 194 mg/dL (74-99); Potassium 4.3 mmol/L (3.5-5.1); Sodium 141 mmol/L (137-145)
[2018-03-05] MEDS: SODIUM CHLORIDE 0.9% 1,000 ML IV SCH (06:39)
[2018-03-05] MEDS: PANTOPRAZOLE 40 MG TABLET PO SCH (06:39)
[2018-03-05] MEDS: INSULIN ASPART 100 UNIT/ML 1 ML 10 ML VIAL SQ SCH ×4 (06:41→20:47)
[2018-03-05] MEDS: SULFAMETHOX-TMP 800-160MG 1 EACH TAB PO SCH ×2 (09:19→20:47)
[2018-03-05] MEDS: LISINOPRIL 5 MG TAB PO SCH (09:19)
[2018-03-05] MEDS: PRASUGREL 10 MG TAB PO SCH (09:19)
[2018-03-05] MEDS: ASPIRIN 325 MG TAB PO SCH (09:20)
[2018-03-05] MEDS: ISOSORBIDE MONONITRATE ER 30 MG TAB.ER.24H PO SCH (09:20)
[2018-03-05] MEDS: METOPROLOL TARTRATE 25 MG TAB PO SCH (09:20)
[2018-03-05] MEDS: ATORVASTATIN 40 MG TAB PO SCH (09:20)
--- NOTE | 2018-03-05 10:11 | P.PN ---
Subjective Progress Note Date: 03/05/18 Principal diagnosis: Chest pain This is a pleasant 67-year-old gentleman who sees Dr. Perales in the office as an outpatient with a past medical history significant for CAD and prior stenting of the LAD with the last intervention in June 2017 were I did perform stenting of the left circumflex as well as hypertension and dyslipidemia presented to the hospital complaining of chest discomfort. The patient was ruled out for acute coronary event. The EKG showed sinus rhythm with old inferior MN and nonspecific changes in the inferior leads. The cardiac enzymes were checked and came in to be normal. Because of the recurrent chest discomfort a heart catheterization was recommended. The patient is a scheduled to undergo a heart catheterization this coming Tuesday by Dr. Perales. Objective - Vital Signs Vital signs: Vital Signs Temp 96.7 F L 03/04/18 20:00 Pulse 63 03/05/18 04:00 Resp 18 03/05/18 04:00 BP 101/64 03/05/18 04:00 Pulse Ox 97 03/05/18 04:00 Intake & Output 03/04/18 03/05/18 03/05/18 18:59 06:59 18:59 Intake Total 640 500 Output Total 2 Balance 638 500 Weight 79.3 kg Intake: Intake, IV Titration 500 Amount Heparin Sod,Pork in 0.45% 500 NaCl 25,000 unit In 0.45 % NaCl 1 500ml.bag @ 12 UNITS/KG/HR 19.59 mls/hr IV .Q24H [facility] Rx#: [id number] Oral 640 Output: Urine 2 Other: # Voids 3 1 - Constitutional General appearance: Present: no acute distress - Respiratory Respiratory: bilateral: CTA - Cardiovascular Rhythm: regular Heart sounds: normal: S1, S2 - Labs CBC & Chem 7: 03/05/18 05:47 03/05/18 05:47 Labs: Abnormal Lab Results - Last 24 Hours (Table) 03/04/18 03/04/18 03/04/18 Range/Units 11:59 16:47 20:07 RBC (4.30-5.90) m/uL Hgb (13.0-17.5) gm/dL Hct (39.0-53.0) % APTT (22.0-30.0) sec Glucose (74-99) mg/dL POC Glucose (mg/dL) 226 H 119 H 143 H (75-99) mg/dL 03/05/18 03/05/18 03/05/18 Range/Units 05:47 05:47 05:47 RBC 4.08 L (4.30-5.90) m/uL Hgb 12.5 L (13.0-17.5) gm/dL Hct 38.3 L (39.0-53.0) % APTT 54.5 H (22.0-30.0) sec Glucose 194 H (74-99) mg/dL POC Glucose (mg/dL) (75-99) mg/dL 03/05/18 Range/Units 06:01 RBC (4.30-5.90) m/uL Hgb (13.0-17.5) gm/dL Hct (39.0-53.0) % APTT (22.0-30.0) sec Glucose (74-99) mg/dL POC Glucose (mg/dL) 202 H (75-99) mg/dL Microbiology - Last 24 Hours (Table) 03/03/18 17:42 Urine Culture - Final Urine,Voided Assessment and Plan Assessment: Assessment #1 recurrent chest discomfort #2 known history of coronary artery disease and prior stenting of the LAD and RCA as described above Plan #1 the patient is scheduled to undergo a heart catheterization this coming Tuesday #2 I will continue the current medical regimen Thank you for allowing us participate in his care
[2018-03-05 12:12] LABS: Glucose,Whole Blood 132 mg/dL (75-99)
[2018-03-05] MEDS: glipiZIDE 10 MG TAB PO SCH ×2 (12:18→20:46)
--- NOTE | 2018-03-05 12:18 | P.PN ---
Subjective Progress Note Date: 03/05/18 This is a 67-year-old male with a known history of coronary artery disease with previous cardiac stent, 2 previous myocardial infarctions, diabetes mellitus type 2, smoking history, hyperlipidemia and hypertension. Last heart catheterization was in June 2017 in which she had stenting to the obtuse marginal branch. Patient presents to the emergency room with complaints of chest pressure on the right side of the chest that radiates across the chest with left arm numbness. He's had these symptoms off and on with both rest and exertion over the past several weeks. Patient had been seen by cardiology outpatient and he reports they did a stress test and was told there was some abnormality but to treat medically. And was told if symptoms recur that he may need a heart catheterization. 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 Symptoms continued to worsen and he decided to present to the ER early this morning. Patient reports improvement of his chest pain with nitroglycerin. Patient also reports having some nausea and shortness of breath. Denies any diaphoresis. Denies any cough , fever or chills. Denies any vomiting bowel movement changes or urinary symptoms. Patient reports that his symptoms feel similar to when he had his previous heart attacks. He's been admitted to the cardiology floor started on IV heparin and cardiology has been consulted. First 2 troponins are negative. EKG had shown a normal sinus rhythm with an inferior infarct, age undetermined. No significant ST changes noted. Chest x-ray was negative. Patient is also been on antibiotics recently for a left great toe cellulitis. Patient's toenail is turning black. He reports no injury. But he was being treated for a cellulitis outpatient setting. She reports no open wound. And reports being on 2 different antibiotics but is unsure of the name of the antibiotic. Nursing staff is calling patient's pharmacy to get the names of the medications. On 03/04/2018 patient is alert and oriented 3 in no apparent distress he is complaining of tingling in his body after he received IV antibiotic dose otherwise he denies any symptoms at this time there is no chest pain or shortness of breath no cough no headache or dizziness no nausea or vomiting no abdominal pain no diarrhea or constipation and no urinary symptoms. On 03/05/2018 patient is alert and oriented in no apparent distress he states he had some numbness in his left arm earlier this morning otherwise he denies any complaints, no new episodes of chest pain, nurse reporting an episode of V. tach at 1 AM of 8 beats, otherwise there is no complaints there is no fever or chills no headache or dizziness no chest pain no shortness of breath no cough , no nausea or vomiting no abdominal pain and no urinary symptoms. Objective - Vital Signs Vital signs: Vital Signs Temp 97.4 F L 03/05/18 08:00 Pulse 67 03/05/18 08:00 Resp 18 03/05/18 08:00 BP 126/67 03/05/18 08:00 Pulse Ox 96 03/05/18 08:00 Intake & Output 03/04/18 03/05/18 03/05/18 18:59 06:59 18:59 Intake Total 640 500 Output Total 2 Balance 638 500 Weight 79.3 kg Intake: Intake, IV Titration 500 Amount Heparin Sod,Pork in 0.45% 500 NaCl 25,000 unit In 0.45 % NaCl 1 500ml.bag @ 12 UNITS/KG/HR 19.59 mls/hr IV .Q24H [facility] Rx#: [id number] Oral 640 Output: Urine 2 Other: # Voids 3 1 - Exam In general patient is alert and oriented 3 in no apparent distress HEENT head normocephalic and atraumatic Neck is supple no JVD no goiter no lymphadenopathy Chest exam reveals a few scattered crackles bilaterally no wheezing Cardiac exam reveals regular heart sounds S1 and S2 no gallops no murmurs Abdomen is soft nontender no organomegaly with normal bowel sounds Extremity exam reveals no edema no cyanosis or clubbing, Redness on the left great toe is receding - Labs CBC & Chem 7: 03/05/18 05:47 03/05/18 05:47 Labs: Abnormal Lab Results - Last 24 Hours (Table) 03/04/18 03/04/18 03/05/18 Range/Units 16:47 20:07 05:47 RBC 4.08 L (4.30-5.90) m/uL Hgb 12.5 L (13.0-17.5) gm/dL Hct 38.3 L (39.0-53.0) % APTT (22.0-30.0) sec Glucose (74-99) mg/dL POC Glucose (mg/dL) 119 H 143 H (75-99) mg/dL 03/05/18 03/05/18 03/05/18 Range/Units 05:47 05:47 06:01 RBC (4.30-5.90) m/uL Hgb (13.0-17.5) gm/dL Hct (39.0-53.0) % APTT 54.5 H (22.0-30.0) sec Glucose 194 H (74-99) mg/dL POC Glucose (mg/dL) 202 H (75-99) mg/dL 03/05/18 Range/Units 11:56 RBC (4.30-5.90) m/uL Hgb (13.0-17.5) gm/dL Hct (39.0-53.0) % APTT (22.0-30.0) sec Glucose (74-99) mg/dL POC Glucose (mg/dL) 132 H (75-99) mg/dL Microbiology - Last 24 Hours (Table) 03/03/18 17:42 Urine Culture - Final Urine,Voided Assessment and Plan Plan: 1. Chest pain with left arm numbness: First 2 troponins are negative 2. EKG showing normal sinus rhythm with inferior infarct age undetermined. Chest x- rays negative. Patient started on IV heparin and cardiology consulted. Last heart catheterization June 2017 with stenting to the obtuse marginal branch. Dr. Shoemaker is planning cardiac catheterization on Tuesday 2. History of coronary artery disease with cardiac stent 3. History of myocardial infarction 2 4. Diabetes mellitus type 2: Patient's home medications are nonformulary. At this time able to resume his glipizide and will add sliding scale coverage. Hold metformin during hospitalization 5. Hyperlipidemia: Continue Lipitor 6. Essential hypertension: Resume lisinopril and Lopressor 7. Left great toe cellulitis had been on antibiotics in the outpatient setting. Nursing is clarified with pharmacy which antibiotics patient was on. Consult infectious disease for further evaluation. Patient was evaluated by Dr. Groves infectious disease was started on cefazolin 2 g IV every 8 hours however he started having feeling of tingling in his body, he has known history of penicillin ALLERGY, at this time will discontinue cefazolin, and notify Dr. Groves. GI prophylaxis Protonix and DVT prophylaxis IV heparin
[2018-03-05 17:16] LABS: Glucose,Whole Blood 142 mg/dL (75-99)
[2018-03-05 21:01] LABS: Glucose,Whole Blood 114 mg/dL (75-99)
[2018-03-06 06:20] LABS: Basophils % (A) 0 %; Eosinophils # (A) 0.1 k/uL (0-0.7); Eosinophils % (A) 1 %; HCT 39.8 % (39.0-53.0); HGB 13.1 gm/dL (13.0-17.5); Lymphocytes # (A) 1.3 k/uL (1.0-4.8); Lymphocytes % (A) 21 %; MCH 31.1 pg (25.0-35.0); MCHC 32.9 g/dL (31.0-37.0); MCV 94.7 fL (80.0-100.0); Mean Platelet Volume 7.1; Monocytes # (A) 0.3 k/uL (0-1.0); Monocytes % (A) 5 %; Neutrophils # (A) 4.4 k/uL (1.3-7.7); Neutrophils % (A) 70 %; Platelet Count 195 k/uL (150-450); RDW 13.6 % (11.5-15.5); WBC 6.2 k/uL (3.8-10.6)
[2018-03-06 06:22] LABS: Glucose,Whole Blood 143 mg/dL (75-99)
--- NOTE | 2018-03-06 06:25 | PN ---
PROGRESS NOTE DATE OF SERVICE: 03/05/2018 REASON FOR FOLLOWUP: Left big toe cellulitis. INTERVAL HISTORY: The patient is afebrile. Has been breathing comfortably. Patient was complaining of some swelling to the left big toe and concern for possible drug ; hence cefazolin was discontinued. The patient is currently on Bactrim DS and tolerating it so far. PHYSICAL EXAMINATION: On examination, blood pressure is 129/74 with a pulse of 66, temperature 97.8. He is 95% on room air. General description is an elderly male lying in bed in no distress. RESPIRATORY SYSTEM: Unlabored breathing. Clear to auscultation anteriorly. HEART: S1, S2. Regular rate and rhythm. ABDOMEN: Soft, no tenderness. Left second toe minimal swelling, some discoloration of the toenail, but no drainage. LABS: Hemoglobin is 12.5, white count 5.4 with a BUN of 18, creatinine 0.82. Urine culture negative. X-rays of the toe did not show any bony changes. DIAGNOSTIC IMPRESSION AND PLAN: Patient with left big toe cellulitis. Clinically doubt underlying osteomyelitis. to possible of the toe bed. Currently on oral Bactrim for short course. Continue supportive care. MMODL / IJN: [id number] /
[2018-03-06 06:42] LABS: Anion Gap 9 mmol/L; Blood Urea Nitrogen 14 mg/dL (9-20); Calcium 8.7 mg/dL (8.4-10.2); Carbon Dioxide 24 mmol/L (22-30); Chloride 106 mmol/L (98-107); Glucose 153 mg/dL (74-99); Potassium 4.4 mmol/L (3.5-5.1); Sodium 139 mmol/L (137-145)
[2018-03-06] MEDS: PANTOPRAZOLE 40 MG TABLET PO SCH (06:42)
[2018-03-06] MEDS: INSULIN ASPART 100 UNIT/ML 1 ML 10 ML VIAL SQ SCH ×4 (06:42→21:37)
[2018-03-06] MEDS: HEPARIN SOD,PORK IN 0.45% NACL 25,000 UNIT in 0.45% NACL 1 500ML.BAG IV SCH ×2 (06:43→23:22)
[2018-03-06] MEDS: SODIUM CHLORIDE 0.9% 1,000 ML IV SCH ×4 (08:23→23:20)
[2018-03-06] MEDS: ISOSORBIDE MONONITRATE ER 30 MG TAB.ER.24H PO SCH (08:24)
[2018-03-06] MEDS: PRASUGREL 10 MG TAB PO SCH (08:24)
[2018-03-06] MEDS: ASPIRIN 325 MG TAB PO SCH (08:24)
[2018-03-06] MEDS: SULFAMETHOX-TMP 800-160MG 1 EACH TAB PO SCH ×2 (08:24→20:46)
[2018-03-06] MEDS: LISINOPRIL 5 MG TAB PO SCH (08:24)
[2018-03-06] MEDS: glipiZIDE 10 MG TAB PO SCH ×2 (08:24→21:37)
[2018-03-06] MEDS: METOPROLOL TARTRATE 25 MG TAB PO SCH (08:24)
[2018-03-06] MEDS: ATORVASTATIN 40 MG TAB PO SCH (08:24)
[2018-03-06 08:30] VITALS: RESP 16
[2018-03-06] MEDS ORDERED: LIDOCAINE 1% INJ 10MG/ML (20 ML MDV) ONE ×2 (08:56→11:11)
[2018-03-06] MEDS ORDERED: IV FLUID CONTINUATION 1,000 ML IV ONE ×2 (09:16)
[2018-03-06] MEDS ORDERED: MIDAZOLAM 2 MG/2 ML VIAL ONE ×2 (09:19→11:11)
[2018-03-06] MEDS ORDERED: fentaNYL (PF) 50 MCG/ML 2 ML AMP ONE ×2 (09:19→12:46)
[2018-03-06] MEDS ORDERED: MIDAZOLAM 2 MG/2 ML VIAL IV ONE (09:37)
[2018-03-06] MEDS: fentaNYL (PF) 50 MCG/ML 2 ML AMP IV ONE ×2 (09:37→09:46)
[2018-03-06] MEDS ORDERED: LIDOCAINE 1% INJ 10MG/ML (20 ML MDV) SQ ONE (09:39)
[2018-03-06] MEDS ORDERED: IOPAMIDOL-370 125ML BTL INJ ONE (09:56)
[2018-03-06] MEDS ORDERED: RX INFO: IV CONTRAST WAS GIVEN 1 EACH MISC MISCELLANE PRN ×2 (10:08→12:54)
[2018-03-06] MEDS ORDERED: IV FLUID CONTINUATION 450 ML IV ONE (11:20)
[2018-03-06] MEDS: MIDAZOLAM 2 MG/2 ML VIAL IV ONE ×2 (12:00→12:17)
[2018-03-06] MEDS ORDERED: BIVALIRUDIN 250 MG in SODIUM CHLORIDE 0.9% 50 ML IV ONE (12:06)
[2018-03-06] MEDS ORDERED: BIVALIRUDIN BOLUS 250 MG/50 ML IV ONE (12:06)
[2018-03-06] MEDS ORDERED: IOPAMIDOL-370 50ML BTL INJ ONE ×2 (12:33→12:40)
[2018-03-06] MEDS ORDERED: IOPAMIDOL-370 100ML BTL INJ ONE (12:33)
[2018-03-06] MEDS ORDERED: NITROGLYCERIN 1000MCG/10ML SYRINGE INTRACORON ONE (12:36)
[2018-03-06] MEDS ORDERED: LIDOCAINE 2% SYG (PF) 100 MG/5 ML MISCELLANE ONE (12:43)
[2018-03-06] MEDS ORDERED: MAG HYDROX/AL HYDROX/SIMETH 30 ML CUP PO PRN (12:54)
[2018-03-06] MEDS ORDERED: ATROPINE SULFATE 0.1 MG/ML 10ML SYRINGE IV PRN (12:54)
[2018-03-06] MEDS ORDERED: fentaNYL (PF) 50 MCG/ML 2 ML AMP IV ONE (12:54)
[2018-03-06] MEDS ORDERED: NITROGLYCERIN SL TABS 0.4 MG TAB SUBLINGUAL PRN (12:54)
[2018-03-06] MEDS ORDERED: ZOLPIDEM 5 MG TAB PO PRN (12:54)
[2018-03-06] MEDS ORDERED: SODIUM CHLORIDE 0.9% 1,000 ML IV ONE (12:55)
[2018-03-06] MEDS ORDERED: SODIUM CHLORIDE 0.9% 1,000 ML IV SCH (13:00)
[2018-03-06 13:21] LABS: Glucose,Whole Blood 93 mg/dL (75-99)
--- NOTE | 2018-03-06 13:32 | PTCA ---
PERCUTANEOUSTRANS CORORONARY ANGIOGRAPHY PERCUTANEOUS CORONARY INTERVENTION DATE OF SERVICE: 03/06/2018 PERFORMING PHYSICIAN: Gerardo Shoemaker MD, floor scrubber. PROCEDURE PERFORMED: 1. Fractional flow reserve of the first diagonal branch of the LAD. 2. Successful stenting of the first diagonal branch of the LAD using 2.5 x 15 mm Xience SERVANDO with good angiographic results. INDICATION: This is a pleasant 67-year-old gentleman who sees Dr. Perales, who presented to the hospital with chest discomfort concerning for angina and underwent a coronary angiogram by Dr. Perales and was found to have patent stent in the LAD with intermediate to severe disease involving the first diagonal branch of the LAD, which is stented in the past. The lesion this time is de brionna in the diagonal just distal to the previous stent. APPROACH: Right common femoral artery. LEVEL OF SEDATION: Moderate sedation length of 48 minutes. COMPLICATION: None. PROCEDURE DESCRIPTION: After diagnostic heart catheterization was performed by Dr. Perales and after reviewing the angiogram, we decided to pursue an FFR of the diagonal. Anticoagulation was initiated using Angiomax. Subsequently after zeroing the Doppler wire and equalizing between the Doppler wire and the guiding catheter which was an XP35 guide. We did . We did iFR and that came in to be 0.85, which is ischemic. At that point, I did balloon angioplasty of the diagonal using 2.5 x 12 mm balloon before I deployed a 2.5 x 15 mm Xience SERVANDO where the stent was positioned under fluoroscopy guidance and deployed under its nominal pressure. The following angiogram showed good angiographic results and the procedure was completed without any complication. POSTPROCEDURE MANAGEMENT: 1. Dual antiplatelet therapy. 2. Risk factor modifications. 3. Follow up with the patient. MMODL / IJN: [id number] /
--- NOTE | 2018-03-06 13:53 | P.PN ---
Subjective Progress Note Date: 03/06/18 This is a 67-year-old male with a known history of coronary artery disease with previous cardiac stent, 2 previous myocardial infarctions, diabetes mellitus type 2, smoking history, hyperlipidemia and hypertension. Last heart catheterization was in June 2017 in which she had stenting to the obtuse marginal branch. Patient presents to the emergency room with complaints of chest pressure on the right side of the chest that radiates across the chest with left arm numbness. He's had these symptoms off and on with both rest and exertion over the past several weeks. Patient had been seen by cardiology outpatient and he reports they did a stress test and was told there was some abnormality but to treat medically. And was told if symptoms recur that he may need a heart catheterization. 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 Symptoms continued to worsen and he decided to present to the ER early this morning. Patient reports improvement of his chest pain with nitroglycerin. Patient also reports having some nausea and shortness of breath. Denies any diaphoresis. Denies any cough , fever or chills. Denies any vomiting bowel movement changes or urinary symptoms. Patient reports that his symptoms feel similar to when he had his previous heart attacks. He's been admitted to the cardiology floor started on IV heparin and cardiology has been consulted. First 2 troponins are negative. EKG had shown a normal sinus rhythm with an inferior infarct, age undetermined. No significant ST changes noted. Chest x-ray was negative. Patient is also been on antibiotics recently for a left great toe cellulitis. Patient's toenail is turning black. He reports no injury. But he was being treated for a cellulitis outpatient setting. She reports no open wound. And reports being on 2 different antibiotics but is unsure of the name of the antibiotic. Nursing staff is calling patient's pharmacy to get the names of the medications. On 03/04/2018 patient is alert and oriented 3 in no apparent distress he is complaining of tingling in his body after he received IV antibiotic dose otherwise he denies any symptoms at this time there is no chest pain or shortness of breath no cough no headache or dizziness no nausea or vomiting no abdominal pain no diarrhea or constipation and no urinary symptoms. On 03/05/2018 patient is alert and oriented in no apparent distress he states he had some numbness in his left arm earlier this morning otherwise he denies any complaints, no new episodes of chest pain, nurse reporting an episode of V. tach at 1 AM of 8 beats, otherwise there is no complaints there is no fever or chills no headache or dizziness no chest pain no shortness of breath no cough , no nausea or vomiting no abdominal pain and no urinary symptoms. 03/06/2018 patient status post heart catheterization with stent to the diagonal per nursing staff. Full report not available to me yet. Patient is lying in bed comfortably chest pain-free. He denies any shortness of breath. Left arm numbness resolved. Objective - Vital Signs Vital signs: Vital Signs Temp 97.4 F L 03/06/18 08:20 Pulse 58 L 03/06/18 11:07 Resp 16 03/06/18 11:07 BP 124/71 03/06/18 11:07 Pulse Ox 96 03/06/18 11:07 Intake & Output 03/05/18 03/06/18 03/06/18 18:59 06:59 18:59 Intake Total 1140 900 546.392 Balance 1140 900 546.392 Weight 80.7 kg Intake: IV 507.53 Intake, IV Titration 300 900 38.862 Amount Heparin Sod,Pork in 0.45% 500 38.862 NaCl 25,000 unit In 0.45 % NaCl 1 500ml.bag @ 12 UNITS/KG/HR 19.59 mls/hr IV .Q24H [facility] Rx#: [id number] Sodium Chloride 0.9% 1, 300 400 000 ml @ 50 mls/hr IV . Q20H [facility] Rx#:[id number] Oral 840 Other: # Voids 4 1 1 - Exam Head normocephalic Neck supple Lungs clear to auscultation bilaterally no wheezing or crackles Heart regular rate and rhythm S1-S2, no rub or gallop Abdomen is soft nontender nondistended positive bowel sounds no hepatosplenomegaly Extremities no edema. Right groin catheter sheath still in place. No hematoma present. Left great toe cellulitis changes improving. Toenail still black. Neuro alert and orientated to 3 - Labs CBC & Chem 7: 03/06/18 05:38 03/06/18 05:38 Labs: Abnormal Lab Results - Last 24 Hours (Table) 03/03/18 03/05/18 03/05/18 Range/Units 16:46 17:10 20:59 RBC (4.30-5.90) m/uL APTT (22.0-30.0) sec Glucose (74-99) mg/dL POC Glucose (mg/dL) 142 H 114 H (75-99) mg/dL Hemoglobin A1c 10.0 H (4.0-6.0) % 03/06/18 03/06/18 03/06/18 Range/Units 05:38 05:38 05:38 RBC 4.20 L (4.30-5.90) m/uL APTT 51.9 H (22.0-30.0) sec Glucose 153 H (74-99) mg/dL POC Glucose (mg/dL) (75-99) mg/dL Hemoglobin A1c (4.0-6.0) % 03/06/18 Range/Units 06:20 RBC (4.30-5.90) m/uL APTT (22.0-30.0) sec Glucose (74-99) mg/dL POC Glucose (mg/dL) 143 H (75-99) mg/dL Hemoglobin A1c (4.0-6.0) % Assessment and Plan Assessment: 1. Chest pain with left arm numbness: Status post heart catheterization with stenting of the first diagonal branch of the LAD. Continue Effient and aspirin. troponins are negative 3. EKG showing normal sinus rhythm with inferior infarct age undetermined. Chest x-rays negative. 2. History of coronary artery disease with cardiac stent 3. History of myocardial infarction 2 4. Diabetes mellitus type 2: Patient's home medications are nonformulary. At this time able to resume his glipizide and will add sliding scale coverage. Hold metformin during hospitalization 5. Hyperlipidemia: Continue Lipitor 6. Essential hypertension: Continue lisinopril and Lopressor 7. Left great toe cellulitis had been on antibiotics in the outpatient setting. Seen by infectious disease. Patient had a reaction to the cefazolin with feeling tingling throughout his body. cefazoin was discontinued. Infectious diseases has placed patient on Bactrim Anticipate discharge tomorrow I performed an examination of the patient and discussed their management with the physician Loading Dock Helper. I have reviewed the Physician Loading Dock Helper's notes and agree with the documented findings and plan of care
[2018-03-06 14:17] VITALS: BMI 24.7
[2018-03-06] MEDS ORDERED: ACETAMINOPHEN TAB 325 MG TAB PO PRN (16:20)
[2018-03-06 16:42] LABS: Glucose,Whole Blood 144 mg/dL (75-99)
--- NOTE | 2018-03-06 19:13 | P.CARDCATH ---
Date of Procedure: 03/06/18 Preoperative Diagnosis: Chest pain and positive stress test. Unstable angina Postoperative Diagnosis: Significant disease involving the diagonal branch. Patent stents in the LAD, proximal diagonal and circumflex Procedure(s) Performed: Left heart catheterization without left ventriculography Description of Procedure: HISTORY: This is a 67-year-old gentleman with history of ischemic heart disease with previous stent placement of the left anterior descending, proximal diagonal and also circumflex coronary artery. Patient was recently seen in the office with chest pains and had a stress test which showed an area of ischemia involving the apical lateral wall in the distribution of the diagonal. Patient is now admitted to the hospital with recurrent chest pain. He is advised to have a cardiac catheterization for definitive diagnosis. CONSENT:I have discussed the risks, benefits and alternative therapies for the above-mentioned procedure and for both sedation/analgesia as well as necessary blood product administration, if indicated, as they pertain to this patient. The patient has indicated understanding and acceptance of the risks and procedures discussed. PROCEDURE: Patient was brought to the lab in a fasting state. Patient was given some IV sedation. The right groin is infiltrated with lidocaine and right femoral artery was entered using Seldinger technique. A 6-Austrian catheter was left in place and selective coronary arteriography was performed. Patient tolerated the procedure well. Femoral angiogram was performed . No immediate complications were noted and patient was transferred to [facility] in a stable condition. Patient is waiting to have stent placement of the diagonal by Dr. Ybarra Conscious Sedation: Versed : 1mg Fentanyl 50 g Duration 20 minutes HEMODYNAMICS: The aortic pressure is about 120/70. Left ventricular end- diastolic pressure is about 10-12. There was no gradient across the aortic valve. SELECTIVE CORONARY ARTERIOGRAPHY: LEFT MAIN: Normal length and patent THE LEFT ANTERIOR DESCENDING CORONARY ARTERY: Moderate caliber vessel with patent stent in the proximal to mid segment. The rest of the vessel is free of occlusive disease. The stent in the proximal diagonal is patent. There is about 70% eccentric lesion involving the mid diagonal THE LEFT CIRCUMFLEX AND IS CORONARY ARTERY: Moderate caliber vessel with patent stent THE RIGHT CORONARY ARTERY: Good caliber vessel. Free of occlusive disease LEFT VENTRICULOGRAPHY: Not performed FINAL IMPRESSION: Critical lesion involving the mid diagonal. Patent stents in the proximal diagonal, LAD and circumflex. PLAN: Stent placement of the diagonal to be done by Dr. Ybarra PROGNOSIS: Fair
[2018-03-06 21:13] LABS: Glucose,Whole Blood 212 mg/dL (75-99)
[2018-03-07 05:46] LABS: Glucose,Whole Blood 198 mg/dL (75-99)
[2018-03-07 06:23] LABS: Basophils % (A) 0 %; Eosinophils % (A) 1 %; HCT 37.8 % (39.0-53.0); HGB 12.3 gm/dL (13.0-17.5); Lymphocytes # (A) 0.9 k/uL (1.0-4.8); Lymphocytes % (A) 14 %; MCH 30.6 pg (25.0-35.0); MCHC 32.7 g/dL (31.0-37.0); MCV 93.6 fL (80.0-100.0); Mean Platelet Volume 7.2; Monocytes # (A) 0.4 k/uL (0-1.0); Monocytes % (A) 7 %; Neutrophils # (A) 4.5 k/uL (1.3-7.7); Neutrophils % (A) 75 %; Platelet Count 173 k/uL (150-450); RBC 4.04 m/uL (4.30-5.90); RDW 13.3 % (11.5-15.5)
[2018-03-07] MEDS: INSULIN ASPART 100 UNIT/ML 1 ML 10 ML VIAL SQ SCH ×2 (06:31→12:04)
[2018-03-07] MEDS: PANTOPRAZOLE 40 MG TABLET PO SCH (06:31)
[2018-03-07] MEDS: PRASUGREL 10 MG TAB PO SCH (07:50)
[2018-03-07] MEDS: ISOSORBIDE MONONITRATE ER 30 MG TAB.ER.24H PO SCH (07:50)
[2018-03-07] MEDS: SULFAMETHOX-TMP 800-160MG 1 EACH TAB PO SCH (07:50)
[2018-03-07] MEDS: glipiZIDE 10 MG TAB PO SCH (07:50)
[2018-03-07] MEDS: LISINOPRIL 5 MG TAB PO SCH (07:50)
[2018-03-07] MEDS: ASPIRIN 325 MG TAB PO SCH (07:50)
[2018-03-07] MEDS: ATORVASTATIN 40 MG TAB PO SCH (07:50)
[2018-03-07] MEDS: METOPROLOL TARTRATE 25 MG TAB PO SCH (07:51)
[2018-03-07 07:56] VITALS: BP 130/72; PULSE 72; TEMP 97
--- NOTE | 2018-03-07 09:42 | P.PN ---
Subjective Progress Note Date: 03/07/18 Principal diagnosis: Unstable Angina This is a pleasant 67-year-old gentleman who follows with Dr. Perales in the office. He has a history of ischemic heart disease, previous stent placement of the LAD, proximal diagonal and circumflex coronary artery. Patient was recently seen in the office with chest discomfort and had a stress test which showed an area of ischemia involving the apical lateral wall in the distribution of the diagonal. He was admitted to the hospital with complaints of recurrent chest discomfort. He underwent cardiac catheterization which showed patent left main, patent stent in the left circumflex and RCA free of occlusive disease as well as left anterior descending coronary artery with a patent stent in the proximal to mid segment, patent stent in the proximal diagonal, and approximately 70% eccentric lesion involving the mid diagonal. A FFR of the diagonal was performed and was ischemic at 0.85. He subsequently underwent stent placement of the first diagonal branch of the LAD. Upon examination, patient is resting comfortably in bed. He's been up ambulating in the hallways and is doing well. Denies further complaints of chest discomfort. He has no complaints of shortness of breath, dizziness, palpitations, nausea or syncope. Objective - Vital Signs Vital signs: Vital Signs Temp 97 F L 03/07/18 07:50 Pulse 72 03/07/18 07:50 Resp 16 03/07/18 07:50 BP 130/72 03/07/18 07:50 Pulse Ox 96 03/07/18 09:04 Intake & Output 03/06/18 03/07/18 03/07/18 18:59 06:59 18:59 Intake Total 726.392 680 480 Output Total 400 Balance 326.392 680 480 Weight 80.7 kg 84.1 kg Intake: IV 507.53 Intake, IV Titration 38.862 200 Amount Heparin Sod,Pork in 0.45% 38.862 NaCl 25,000 unit In 0.45 % NaCl 1 500ml.bag @ 12 UNITS/KG/HR 19.59 mls/hr IV .Q24H [facility] Rx#: [id number] Sodium Chloride 0.9% 1, 200 000 ml @ 100 mls/hr IV . Q10H [facility]O Rx#:[id number] Oral 180 480 480 Output: Urine 400 Other: Voiding Method Toilet # Voids 1 2 - Exam PHYSICAL EXAMINATION: HEENT: Head is atraumatic, normocephalic. Pupils equal, round. Neck is supple. There is no elevated jugular venous pressure. HEART EXAMINATION: Heart sounds regular, S1 and S2 normal. No murmur or gallop heard. CHEST EXAMINATION: Lungs are clear to auscultation and precussion. No chest wall tenderness is noted on palpation or with deep breathing. ABDOMEN: Soft, nontender. Bowel sounds are heard. No organomegaly noted. EXTREMITIES: 2+ peripheral pulses with no evidence of peripheral edema and no calf tenderness noted. Right femoral puncture site soft without ecchymosis or hematoma. NEUROLOGIC patient is awake, alert and oriented x3. . - Labs CBC & Chem 7: 03/07/18 05:45 03/07/18 05:45 Labs: Abnormal Lab Results - Last 24 Hours (Table) 03/06/18 03/06/18 03/07/18 Range/Units 16:39 21:11 05:45 RBC 4.04 L (4.30-5.90) m/uL Hgb 12.3 L (13.0-17.5) gm/dL Hct 37.8 L (39.0-53.0) % Lymphocytes # 0.9 L (1.0-4.8) k/uL POC Glucose (mg/dL) 144 H 212 H (75-99) mg/dL 03/07/18 Range/Units 05:45 RBC (4.30-5.90) m/uL Hgb (13.0-17.5) gm/dL Hct (39.0-53.0) % Lymphocytes # (1.0-4.8) k/uL POC Glucose (mg/dL) 198 H (75-99) mg/dL Assessment and Plan Assessment: 1 recurrent chest discomfort with recent positive stress test #2 known history of CAD with prior stent placement #3 status post stenting of the first diagonal branch of the LAD #4 hypertension #5 diabetes #6 hyperlipidemia Plan: From Cardiology's perspective, continue aspirin, atorvastatin, isosorbide mononitrate, lisinopril, metoprolol tartrate and Effient. Patient will be discharged home today and will follow-up with Dr. Perales in the office in about a week. The above dictated assessment and findings were discussed with signing physician. The impression and plan of care have been directed as dictated. Crystal Valeria, Nurse Practitioner, acting as scribe for signing physician.
[2018-03-07] MEDS: SODIUM CHLORIDE 0.9% 1,000 ML IV SCH ×2 (10:10→10:11)
--- NOTE | 2018-03-07 11:21 | P.DS ---
Providers Date of admission: 03/03/18 06:59 Expected date of discharge: 03/07/18 Attending physician: Heidy Ramos Consults: 03/03/18 06:58 Consult Physician Routine Consulting Provider: Med Perales Consult Reason/Comments: Unstable angina Do you want consulting provider notified?: Yes 03/03/18 15:10 Consult Physician Routine Consulting Provider: Abimael Groves Consult Reason/Comments: left great toe cellulitis Do you want consulting provider notified?: Yes 03/06/18 12:54 Consult Physician Routine Consulting Provider: [facility] Consult Reason/Comments: Post Interventional patient Do you want consulting provider notified?: Already Contacted Primary care physician: Francy Hermosillo [facility] Course: Discharge diagnosis 1. Chest pain with left arm numbness: MO ruled out. Status post heart catheterization with stenting of the first diagonal branch of the LAD. Continue Effient and aspirin. troponins are negative 3. EKG showing normal sinus rhythm with inferior infarct age undetermined. Chest x-rays negative. 2. History of coronary artery disease with cardiac stent 3. History of myocardial infarction 2 4. Diabetes mellitus type 2: Patient's home medications are nonformulary. At this time able to resume his glipizide and will add sliding scale coverage. Hold metformin during hospitalization 5. Hyperlipidemia: Continue Lipitor 6. Essential hypertension: Continue lisinopril and Lopressor 7. Left great toe cellulitis had been on antibiotics in the outpatient setting. Infectious diseases recommending Bactrim for 1 week Hospital course This is a 67-year-old male with a known history of coronary artery disease with previous cardiac stent, 2 previous myocardial infarctions, diabetes mellitus type 2, smoking history, hyperlipidemia and hypertension. Last heart catheterization was in June 2017 in which she had stenting to the obtuse marginal branch. Patient presents to the emergency room with complaints of chest pressure on the right side of the chest that radiates across the chest with left arm numbness. He's had these symptoms off and on with both rest and exertion over the past several weeks. Patient had been seen by cardiology outpatient and he reports they did a stress test and was told there was some abnormality but to treat medically. And was told if symptoms recur that he may need a heart catheterization. 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 Symptoms continued to worsen and he decided to present to the ER early this morning. Patient reports improvement of his chest pain with nitroglycerin. Patient also reports having some nausea and shortness of breath. Denies any diaphoresis. Denies any cough , fever or chills. Denies any vomiting bowel movement changes or urinary symptoms. Patient reports that his symptoms feel similar to when he had his previous heart attacks. He's been admitted to the cardiology floor started on IV heparin and cardiology has been consulted. First 2 troponins are negative. EKG had shown a normal sinus rhythm with an inferior infarct, age undetermined. No significant ST changes noted. Chest x-ray was negative. Patient is also been on antibiotics recently for a left great toe cellulitis. Patient's toenail is turning black. He reports no injury. But he was being treated for a cellulitis outpatient setting. She reports no open wound. And reports being on 2 different antibiotics but is unsure of the name of the antibiotic. Nursing staff is calling patient's pharmacy to get the names of the medications. On 03/04/2018 patient is alert and oriented 3 in no apparent distress he is complaining of tingling in his body after he received IV antibiotic dose otherwise he denies any symptoms at this time there is no chest pain or shortness of breath no cough no headache or dizziness no nausea or vomiting no abdominal pain no diarrhea or constipation and no urinary symptoms. On 03/05/2018 patient is alert and oriented in no apparent distress he states he had some numbness in his left arm earlier this morning otherwise he denies any complaints, no new episodes of chest pain, nurse reporting an episode of V. tach at 1 AM of 8 beats, otherwise there is no complaints there is no fever or chills no headache or dizziness no chest pain no shortness of breath no cough , no nausea or vomiting no abdominal pain and no urinary symptoms. 03/06/2018 patient status post heart catheterization with stent to the diagonal branch of the LAD 03/07/2018 patient has been cleared by cardiology for discharge. He has been chest pain free. He is to continue his Effient, aspirin, Imdur, Lipitor, lisinopril and metoprolol. Patient be following up with cardiology in 1 week. Patient also has been cleared by infectious disease the recommending Bactrim for one more week for the left great toe cellulitis. Patient's is medically stable for discharge. Please refer to chart for any further details. Also will discontinue patient's Cialis that he takes at home until he is evaluated by both his PCP and cardiology since he is on nitrates I performed an examination of the patient and discussed their management with the physician Warehouse Administrative Assistant. I have reviewed the Physician Warehouse Administrative Assistant's notes and agree with the documented findings and plan of care Patient Condition at Discharge: Stable Plan - Discharge Summary Discharge Rx Participant: No New Discharge Prescriptions: New Sulfamethox-Tmp 800-160Mg [Bactrim DS 800-160 mg] 1 each PO BID #14 tab Continue Canagliflozin [Invokana] 300 mg PO AC-BRKFST Dulaglutide [Trulicity] 1.5 mg SQ FR Nitroglycerin Sl Tabs [Nitrostat] 0.4 mg SUBLINGUAL Q5M PRN #1 bottle PRN Reason: Chest Pain metFORMIN HCL 1,000 mg PO DAILY Metoprolol Tartrate 25 mg PO DAILY glipiZIDE XL [Glucotrol XL] 20 mg PO DAILY Lisinopril [Prinivil] 5 mg PO DAILY Omeprazole 20 mg PO DAILY Prasugrel [Effient] 10 mg PO DAILY #30 tab Aspirin EC [Ecotrin] 325 mg PO DAILY #30 tablet. Atorvastatin [Lipitor] 40 mg PO DAILY Isosorbide Mononitrate ER [Imdur] 30 mg PO DAILY Discontinued Tadalafil [Cialis] 20 mg PO ONCE PRN #0 PRN Reason: Per Protocol Discharge Medication List Canagliflozin [Invokana] 300 mg PO AC-BRKFST 01/28/16 [History] Dulaglutide [Trulicity] 1.5 mg SQ FR 01/28/16 [History] Nitroglycerin Sl Tabs [Nitrostat] 0.4 mg SUBLINGUAL Q5M PRN #1 bottle 04/10/16 [ Rx] Lisinopril [Prinivil] 5 mg PO DAILY 06/18/17 [History] Metoprolol Tartrate 25 mg PO DAILY 06/18/17 [History] glipiZIDE XL [Glucotrol XL] 20 mg PO DAILY 06/18/17 [History] metFORMIN HCL 1,000 mg PO DAILY 06/18/17 [History] Omeprazole 20 mg PO DAILY 10/21/17 [History] Aspirin EC [Ecotrin] 325 mg PO DAILY #30 tablet. 06/28/17 [Rx] Prasugrel [Effient] 10 mg PO DAILY #30 tab 06/28/17 [Rx] Atorvastatin [Lipitor] 40 mg PO DAILY 03/03/18 [History] Isosorbide Mononitrate ER [Imdur] 30 mg PO DAILY 03/03/18 [History] Sulfamethox-Tmp 800-160Mg [Bactrim DS 800-160 mg] 1 each PO BID #14 tab [Rx] Follow up Appointment(s)/Referral(s): Med Perales MD [STAFF PHYSICIAN] - 03/16/18 3:30 pm Francy Hermosillo DO [Primary Care Provider] - 03/11/18 1:00 pm (Tuesday) Patient Instructions/Handouts: *Surgery [facility] - After Heart Catheterization - Mycologist Instructions Activity/Diet/Wound Care/Special Instructions: Diet: cardiac, diabetic Activity: as tolerated Discharge Disposition: HOME SELF-CARE
[2018-03-07 11:34] LABS: Glucose,Whole Blood 139 mg/dL (75-99)
--- NOTE | 2018-03-07 14:24 | PN ---
PROGRESS NOTE DATE OF SERVICE: 03/07/2018. REASON FOR FOLLOWUP: Left diabetic foot cellulitis. INTERVAL HISTORY: The patient is afebrile. He is breathing comfortably. Denies having any chest pain or shortness of breath. No abdominal pain or any pain to the big toe area. EXAMINATION: Blood pressure is 130/72 with a pulse of 72, temperature 97. He is 96% on room air. General description is an elderly male lying in bed in no distress. RESPIRATORY SYSTEM: Unlabored breathing. Clear to auscultation anteriorly. HEART: S1, S2. Regular rate and rhythm. ABDOMEN: Soft. No tenderness. Left big toe swelling has improved. LABS: Creatinine 0.97. White count 36. DIAGNOSTIC IMPRESSION AND PLAN: Patient with left diabetic foot infection with left big toe cellulitis and possibly trauma to the nail bed. Patient's redness improved after he was given a short course of oral Bactrim and will watch his kidney function closely as well as outpatient followup. Patient advised if any worsening swelling, redness or discoloration of his toe after his discharge, to let us know right away. MMODL / IJN: [id number] /
== END 2018-03-07 13:06 | disposition home or self-care (01) | DRG 247 ==
LOC: EC 05:12 → 6SEL 06:59
PROVIDERS: ADMIT Internal Medicine; ATTEND Internal Medicine
PROC: B2111ZZ Fluoroscopy of Multiple Coronary Arteries using Low Osmolar Contrast (ICD-10-PCS; 2018-03-06)
PROC: B2151ZZ Fluoroscopy of Left Heart using Low Osmolar Contrast (ICD-10-PCS; 2018-03-06)
PROC: 4A033BC Measurement of Arterial Pressure, Coronary, Percutaneous Approach (ICD-10-PCS; 2018-03-06)
PROC: 4A023N7 Measurement of Cardiac Sampling and Pressure, Left Heart, Percutaneous Approach (ICD-10-PCS; principal; 2018-03-06 09:00)
PROC: 027034Z Dilation of Coronary Artery, One Artery with Drug-eluting Intraluminal Device, Percutaneous Approach (ICD-10-PCS; 2018-03-06 11:15)
DX: I25.110 Atherosclerotic heart disease of native coronary artery with unstable angina pectoris (principal); E78.5 Hyperlipidemia, unspecified; I10 Essential (primary) hypertension; K21.9 Gastro-esophageal reflux disease without esophagitis; L03.032 Cellulitis of left toe; E11.628 Type 2 diabetes mellitus with other skin complications; F41.9 Anxiety disorder, unspecified; H91.92 Unspecified hearing loss, left ear; I25.2 Old myocardial infarction; Z95.5 Presence of coronary angioplasty implant and graft; Z87.891 Personal history of nicotine dependence; Z82.49 Family history of ischemic heart disease and other diseases of the circulatory system; Z88.0 Allergy status to penicillin; Z80.0 Family history of malignant neoplasm of digestive organs; Z86.010 Personal history of colon polyps; Z79.84 Long term (current) use of oral hypoglycemic drugs; Z79.82 Long term (current) use of aspirin; Z79.899 Other long term (current) drug therapy
CPT/HCPCS: 36415; 71046; 80048; 80053; 82550; 82553; 82565; 83036; 83690; 83735; 83880; 84484; 85025; 85610; 85730; 87086; 93005; 93306; 93458; 93571; 94760; 96365; 96366; 96376; 99285

== ENCOUNTER 2018-06-15 07:57 | Day surgery (SDC) | payer MEDICARE, BC ==
[2018-06-14 08:56] VITALS: BMI 25.1
[~2018-06-15 07:57] MED LIST: LACTATED RINGERS 1,000 ML IV SCH
[2018-06-15 08:51] VITALS: TEMP 97.8
[2018-06-15 09:01] LABS: Glucose,Whole Blood 128 mg/dL (75-99)
[2018-06-15] MEDS ORDERED: LIDOCAINE 1% 20 ML VIAL (10MG/ML) FOR IV START INTRADERMA ONE (09:01)
[2018-06-15] MEDS ORDERED: LIDOCAINE 1% INJ 10MG/ML (20 ML MDV) ONE (09:14)
[2018-06-15] MEDS ORDERED: PROPOFOL 10 MG/ML 20 ML VIAL IV ONE (09:14)
--- NOTE | 2018-06-15 09:17 | P.GSHP ---
History of Present Illness H&P Date: 06/15/18 Chief Complaint: History of colon polyps This is a 68-year-old male referred from Dr. Francy Hermosillo. Patient presents today for colonoscopy. He's had his colonoscopy that which time colon polyps were found. He denies any rectal bleeding. Past Medical History Past Medical History: Coronary Artery Disease (CAD), Chest Pain / Angina, Diabetes Mellitus, GERD/Reflux, Hyperlipidemia, Hypertension, Myocardial Infarction (CO) Additional Past Medical History / Comment(s): NIDDM, cardiac murmur, 2 previous MIs, L ear deafness, benign colon polyps, Last Myocardial Infarction Date:: 04/22/16 History of Any Multi-Drug Resistant Organisms: None Reported Past Surgical History: Adenoidectomy, Ear Surgery, Heart Catheterization With Stent, Orthopedic Surgery, Tonsillectomy Additional Past Surgical History / Comment(s): 01/28/16 PTCA and stent and April 2016 and in June 2017, L ear mastoid surgery, colonoscopies/ polypectomies, L hand index finger amputated Past Anesthesia/Blood Transfusion Reactions: No Reported Reaction Date of Last Stent Placement:: 06/28/17 Smoking Status: Former smoker - Past Family History Father Family Medical History: Cancer, Coronary Artery Disease (CAD) Additional Family Medical History / Comment(s): Father had CABG prior to age 50yrs. He of esophageal cancer at the age of 79 yrs. Mother Family Medical History: Congestive Heart Failure (CHF), Osteoarthritis (OA) Additional Family Medical History / Comment(s): Mother of CHF at 86yrs of age. Medications and Allergies Home Medications Medication Instructions Recorded Confirmed Type Canagliflozin [Invokana] 300 mg PO AC-BRKFST 01/28/16 06/15/18 History Dulaglutide [Trulicity] 1.5 mg SQ FR 01/28/16 06/15/18 History Nitroglycerin Sl Tabs [Nitrostat] 0.4 mg SUBLINGUAL Q5M PRN #1 bottle 04/10/16 06/15/18 Rx Lisinopril [Prinivil] 5 mg PO DAILY 06/18/17 06/15/18 History Metoprolol Tartrate 25 mg PO DAILY 06/18/17 06/15/18 History glipiZIDE XL [Glucotrol XL] 20 mg PO DAILY 06/18/17 06/15/18 History metFORMIN HCL 1,000 mg PO DAILY 06/18/17 06/15/18 History Omeprazole 20 mg PO DAILY 06/25/17 06/15/18 History Aspirin EC [Ecotrin] 325 mg PO DAILY #30 tablet.dr 06/28/17 06/14/18 Rx Prasugrel [Effient] 10 mg PO DAILY #30 tab 06/28/17 06/14/18 Rx Atorvastatin [Lipitor] 40 mg PO DAILY 03/03/18 06/15/18 History Isosorbide Mononitrate ER [Imdur] 30 mg PO DAILY 03/03/18 06/15/18 History Insulin Degludec [Tresiba 10 units INJ DAILY 06/14/18 06/15/18 History Flextouch U-100] Allergies Allergy/AdvReac Type Severity Reaction Status Date / Time Penicillins Allergy Unknown Rash/Hives Verified 06/14/18 08:48 Surgical - Exam Vital Signs Temp Pulse Resp BP Pulse Ox 97.8 F 80 16 119/58 94 L 06/15/18 08:49 06/15/18 08:49 06/15/18 08:49 06/15/18 08:49 06/15/18 08:49 - General well developed, no distress - Eyes PERRL - ENT normal pinna - Neck no masses - Respiratory normal expansion - Cardiovascular Rhythm: regular - Abdomen Abdomen: soft, non tender Results - Labs Abnormal Lab Results - Last 24 Hours (Table) 06/15/18 Range/Units 08:56 POC Glucose (mg/dL) 128 H (75-99) mg/dL Assessment and Plan Assessment: Strict colon polyps. We'll perform colonoscopy.
--- NOTE | 2018-06-15 09:34 | P.OP ---
Date of Procedure: 06/15/18 Preoperative Diagnosis: Screening colonoscopy History: Polyps Postoperative Diagnosis: Normal colon Procedure(s) Performed: Colonoscopy Anesthesia: MAC Surgeon: Isiah Camarena Pathology: none sent Condition: stable Disposition: PACU Description of Procedure: PROCEDURE: The patient was placed on the endoscopy table in the lateral position. Digital rectal examination was performed which revealed no abnormalities. The prostate was symmetrical without nodules. Flexible colonoscope was then placed in the patient's anus and passed throughout the entire colon. The ileocecal valve was visualized. The cecum, ascending, transverse, descending and sigmoid colon were normal. The rectum was normal as well. There were no masses, polyps or diverticula noted in the entire colon. SUMMARY OF FINDINGS: Normal colonoscopy.
[2018-06-15 09:58] VITALS: PULSE 66
[2018-06-15 10:11] VITALS: BP 105/66; RESP 18
== END 2018-06-15 10:27 | disposition home or self-care (01) ==
LOC: ORWHC2ENDO 07:57
PROVIDERS: ATTEND Surgery
DX: Z12.11 Encounter for screening for malignant neoplasm of colon (principal); Z86.010 Personal history of colon polyps; I25.10 Atherosclerotic heart disease of native coronary artery without angina pectoris; E11.9 Type 2 diabetes mellitus without complications; K21.9 Gastro-esophageal reflux disease without esophagitis; E78.5 Hyperlipidemia, unspecified; I10 Essential (primary) hypertension; I25.2 Old myocardial infarction; H91.92 Unspecified hearing loss, left ear; Z95.5 Presence of coronary angioplasty implant and graft; Z79.82 Long term (current) use of aspirin; Z79.4 Long term (current) use of insulin; Z79.899 Other long term (current) drug therapy; Z88.0 Allergy status to penicillin; Z87.891 Personal history of nicotine dependence
CPT/HCPCS: J2001; J2704; G0105

== ENCOUNTER 2019-09-01 07:40 | Emergency (ER) | payer MEDICARE, BC ==
[2019-09-01 07:50] VITALS: PULSE 78; TEMP 97.7
--- NOTE | 2019-09-01 07:55 | ED ---
URI HPI - General Chief Complaint: Upper Respiratory Infection Stated Complaint: congestion/cold Time Seen by Provider: 09/01/19 07:51 Source: patient Mode of arrival: ambulatory Limitations: no limitations - History of Present Illness Initial Comments: 69-year-old male with history of diabetes, CAD, left mastoidectomy with permanent hearing loss presents today to the emergency department for evaluation of persistent cough for congestion bilateral eye injection and left ear pain and drainage. Patient states that for the past 2 days he has had a cough congestion with bilateral eye redness. He states today his eyes were crusted shut. Patient states she also has noted that he has had drainage from his left ear he states he has frequent ear infections in states that he is followed at the ear [facility]. He denies pain/swelling hind the ear, fevers. Patient denies substernal chest pain, but states he noted right sided rib pain this m orning when coughing. Patient denies current pain. Patient denies shortness of breath or leg swelling. Patient denies any nausea, vomiting or diarrhea. States he has had slight sore throat. Remaining ROS (-). Upon arrival patient appears well there is no signs of acute distress. - Related Data Home Medications Medication Instructions Recorded Confirmed Canagliflozin [Invokana] 300 mg PO AC-BRKFST 01/28/16 06/15/18 Dulaglutide [Trulicity] 1.5 mg SQ FR 01/28/16 06/15/18 Lisinopril [Prinivil] 5 mg PO DAILY 06/18/17 06/15/18 Metoprolol Tartrate 25 mg PO DAILY 06/18/17 06/15/18 glipiZIDE XL [Glucotrol XL] 20 mg PO DAILY 06/18/17 06/15/18 metFORMIN HCL 1,000 mg PO DAILY 06/18/17 06/15/18 Omeprazole 20 mg PO DAILY 06/25/17 06/15/18 Atorvastatin [Lipitor] 40 mg PO DAILY 03/03/18 06/15/18 Isosorbide Mononitrate ER [Imdur] 30 mg PO DAILY 03/03/18 06/15/18 Insulin Degludec [Tresiba 10 units INJ DAILY 06/14/18 06/15/18 Flextouch U-100] Previous Rx's Medication Instructions Recorded Nitroglycerin Sl Tabs [Nitrostat] 0.4 mg SUBLINGUAL Q5M PRN #1 bottle 04/10/16 Aspirin EC [Ecotrin] 325 mg PO DAILY #30 tablet. 06/28/17 Prasugrel [Effient] 10 mg PO DAILY #30 tab 06/28/17 Azithromycin [Zithromax Z-pack] 0 mg PO DIRECTED #6 tab 09/01/19 Erythromycin Ophth Oint [Romycin 1 applic BOTH EYES QID 5 Days #1 09/01/19 Ophth Oint] tube Ofloxacin 0.3% Otic Soln [Floxin 5 drops LEFT EAR BID 5 Days #1 09/01/19 0.3% Otic Soln] bottle Allergies Allergy/AdvReac Type Severity Reaction Status Date / Time Penicillins Allergy Unknown Rash/Hives Verified 09/01/19 07:49 Review of Systems ROS Statement: Those systems with pertinent positive or pertinent negative responses have been documented in the HPI. ROS Other: All systems not noted in ROS Statement are negative. Past Medical History Past Medical History: Coronary Artery Disease (CAD), Chest Pain / Angina, Diabetes Mellitus, GERD/Reflux, Hyperlipidemia, Hypertension, Myocardial Infarction ([place]) Additional Past Medical History / Comment(s): NIDDM, cardiac murmur, 2 previous MIs, L ear deafness, benign colon polyps, Last Myocardial Infarction Date:: 04/22/16 History of Any Multi-Drug Resistant Organisms: None Reported Past Surgical History: Adenoidectomy, Ear Surgery, Heart Catheterization With Stent, Orthopedic Surgery, Tonsillectomy Additional Past Surgical History / Comment(s): 01/28/16 PTCA and stent and April 2016 and in June 2017, L ear mastoid surgery, colonoscopies/polypectomies, L hand index finger amputated Past Anesthesia/Blood Transfusion Reactions: No Reported Reaction Date of Last Stent Placement:: 06/28/17 Past Psychological History: Anxiety Smoking Status: Former smoker Past Alcohol Use History: Occasional Past Drug Use History: None Reported - Past Family History Father Family Medical History: Cancer, Coronary Artery Disease (CAD) Additional Family Medical History / Comment(s): Father had CABG prior to age 50yrs. He of esophageal cancer at the age of 79 yrs. Mother Family Medical History: Congestive Heart Failure (CHF), Osteoarthritis (OA) Additional Family Medical History / Comment(s): Mother of CHF at 86yrs of age. General Exam - General Exam Comments Initial Comments: General: The patient is awake and alert, in no distress, and does not appear acutely ill. Eye: +3 mm pupils are equal, round and reactive to light, extra-ocular move ments are intact. No nystagmus. There is mild injection of the conjunctiva bilaterally, limbus sparing. No signs of icterus. No photophobia Ears, nose, mouth and throat: There are moist mucous membranes and no oral lesions. Oropharynx was not erythematous there is no tonsillar enlargement exudates or lesions. Uvula midline. Right TM not erythenatous, there is absent TM of the left ear, but there is no swelling or noted drainage of the left ear currently. Some slight redness of the inner ear noted. NO masses appreciated or tenderness to palpation of the mastoid. No anterior cervical lymphadenopathy. Rhinorrhea, clear and bilateral nares. No tripoding, no drooling. Neck: The neck is supple, there is no tenderness or JVD. No nuchal rigidity Cardiovascular: There is a regular rate and rhythm. No murmur, rub or gallop is appreciated. Respiratory: Lungs are clear to auscultation, respirations are non-labored, breath sounds are equal. No wheezes, stridor, rales, or rhonchi. No retractions or abdominal breathing. Gastrointestinal: Soft, non-distended, non-tender abdomen without masses or organomegaly noted. There is no rebound or guarding present. Bowel sounds are unremarkable. Musculoskeletal: Normal ROM, no tenderness. Strength 5/5. Sensation intact. Radial pulses equal bilaterally 2+. Neurological: A&O x 3. CN II-XII intact grossly, There are no obvious motor or sensory deficits. Coordination appears grossly intact. Speech appears normal, no muffling. Skin: Skin is warm and dry and no rashes or lesions are noted. No extremity edema Psychiatric: Cooperative Limitations: no limitations Course Vital Signs 09/01/19 09/01/19 09/01/19 07:44 08:10 10:05 Temperature 97.7 F Pulse Rate 78 78 Respiratory 16 20 18 Rate Blood Pressure 99/62 110/58 O2 Sat by Pulse 96 98 Oximetry Medical Decision Making - Medical Decision Making Very well-appearing 69-year-old male presenting today for chief complaint of cough, congestion ear pain. One episode of rib pain. Chest x-ray clear no evidence of rib fracture. Troponin obtained given patient history of CAD with rib pain although it did not appears to be a cardiac source. EKG no acute findings nose findings consistent with ischemia. Patient CXR clear of pneumonia. No leukocytosis Tenderness on palpation of the mastoid. Patient was started on antibiotic eye drops as well as ear drops. As he is conjunctival injection and redness of the inner ear on the left side. Otherwise patient appears well nontoxic he is agreeable prefers discharge at this time. Return parameters were discussed at length patient was understanding as discharge appearing well after discussing the case in detail at length my attending provider because discharg is appropriate time. Ventricular rate 70 beats or minute, UT interval 186 most seconds, QRS ration 90 ms, QT/QTC 362/412 ms. Normal sinus. No ST elevation or depression noted. No T-wave inversion normal R-wave progression. - Lab Data Result diagrams: 09/01/19 08:14 09/01/19 08:14 Lab Results 09/01/19 09/01/19 09/01/19 Range/Units 08:14 08:14 08:14 WBC 9.6 (3.8-10.6) k/uL RBC 4.32 (4.30-5.90) m/uL Hgb 13.2 (13.0-17.5) gm/dL Hct 40.1 (39.0-53.0) % MCV 92.8 (80.0-100.0) fL MCH 30.6 (25.0-35.0) pg MCHC 33.0 (31.0-37.0) g/dL RDW 12.8 (11.5-15.5) % Plt Count 223 (150-450) k/uL Neutrophils % 76 % Lymphocytes % 13 % Monocytes % 8 % Eosinophils % 1 % Basophils % 0 % Neutrophils # 7.3 (1.3-7.7) k/uL Lymphocytes # 1.2 (1.0-4.8) k/uL Monocytes # 0.7 (0-1.0) k/uL Eosinophils # 0.1 (0-0.7) k/uL Basophils # 0.0 (0-0.2) k/uL Sodium 140 (137-145) mmol/L Potassium 4.7 (3.5-5.1) mmol/L Chloride 103 (98-107) mmol/L Carbon Dioxide 26 (22-30) mmol/L Anion Gap 11 mmol/L BUN 25 H (9-20) mg/dL Creatinine 0.77 (0.66-1.25) mg/dL Est GFR (CKD-EPI)AfAm >90 (>60 ml/min/1.73 sqM) Est GFR (CKD-EPI)NonAf >90 (>60 ml/min/1.73 sqM) Glucose 198 H (74-99) mg/dL Plasma Lactic Acid Daniel (0.7-2.0) mmol/L Calcium 9.6 (8.4-10.2) mg/dL Total Bilirubin 0.7 (0.2-1.3) mg/dL AST 18 (17-59) U/L ALT 16 (4-49) U/L Alkaline Phosphatase 106 (38-126) U/L Troponin I <0.012 (0.000-0.034) ng/mL Total Protein 6.7 (6.3-8.2) g/dL Albumin 4.0 (3.5-5.0) g/dL Influenza Type A RNA (Not Detectd) Influenza Type B (PCR) (Not Detectd) 09/01/19 09/01/19 Range/Units 08:14 08:16 WBC (3.8-10.6) k/uL RBC (4.30-5.90) m/uL Hgb (13.0-17.5) gm/dL Hct (39.0-53.0) % MCV (80.0-100.0) fL MCH (25.0-35.0) pg MCHC (31.0-37.0) g/dL RDW (11.5-15.5) % Plt Count (150-450) k/uL Neutrophils % % Lymphocytes % % Monocytes % % Eosinophils % % Basophils % % Neutrophils # (1.3-7.7) k/uL Lymphocytes # (1.0-4.8) k/uL Monocytes # (0-1.0) k/uL Eosinophils # (0-0.7) k/uL Basophils # (0-0.2) k/uL Sodium (137-145) mmol/L Potassium (3.5-5.1) mmol/L Chloride (98-107) mmol/L Carbon Dioxide (22-30) mmol/L Anion Gap mmol/L BUN (9-20) mg/dL Creatinine (0.66-1.25) mg/dL Est GFR (CKD-EPI)AfAm (>60 ml/min/1.73 sqM) Est GFR (CKD-EPI)NonAf (>60 ml/min/1.73 sqM) Glucose (74-99) mg/dL Plasma Lactic Acid Daniel 1.2 (0.7-2.0) mmol/L Calcium (8.4-10.2) mg/dL Total Bilirubin (0.2-1.3) mg/dL AST (17-59) U/L ALT (4-49) U/L Alkaline Phosphatase (38-126) U/L Troponin I (0.000-0.034) ng/mL Total Protein (6.3-8.2) g/dL Albumin (3.5-5.0) g/dL Influenza Type A RNA Not Detected (Not Detectd) Influenza Type B (PCR) Not Detected (Not Detectd) Disposition Clinical Impression: URI (upper respiratory infection), Cough, Ear pain, left, Rib pain Disposition: HOME SELF-CARE Condition: Good Instructions (If sedation given, give patient instructions): Upper Respiratory Infection (ED) Additional Instructions: Please use medication as discussed. Please follow-up with family doctor in the next 2 days, as well as ENT, if symptoms worsening please return to the ER. Please return to emergency room if the symptoms increase or worsen or for any other concerns.. Prescriptions: Ofloxacin 0.3% Otic Soln [Floxin 0.3% Otic Soln] 5 drops LEFT EAR BID 5 Days #1 bottle Erythromycin Ophth Oint [Romycin Ophth Oint] 1 applic BOTH EYES QID 5 Days #1 tube Azithromycin [Zithromax Z-pack] 0 mg PO DIRECTED #6 tab Is patient prescribed a controlled substance at d/c from ED?: No Referrals: Francy Hermosillo DO [Primary Care Provider] - 1-2 days Time of Disposition: 09:57
[2019-09-01] MEDS ORDERED: ASPIRIN 81 MG PO STA (08:10)
[2019-09-01] MEDS ORDERED: SODIUM CHLORIDE 0.9% 1,000 ML IV ONE (08:13)
[2019-09-01] MEDS ORDERED: SODIUM CHLORIDE 0.9% 1,000 ML IV SCH (08:15)
--- NOTE | 2019-09-01 08:50 | XR ---
EXAMINATION TYPE: XR chest 2V DATE OF EXAM: 09/01/2019 COMPARISON: Chest x-ray March 03, 2018 HISTORY: Cough and chest pain. TECHNIQUE: Frontal and lateral views of the chest are obtained. FINDINGS: Overlying EKG leads are redemonstrated. There is no focal air space opacity, pleural effus ion, or pneumothorax seen. The cardiac silhouette size is within normal limits. The osseous struct ures are intact. IMPRESSION: No acute cardiopulmonary process. No significant change from prior.
[2019-09-01 08:54] LABS: Basophils % (A) 0 %; Eosinophils # (A) 0.1 k/uL (0-0.7); Eosinophils % (A) 1 %; HCT 40.1 % (39.0-53.0); HGB 13.2 gm/dL (13.0-17.5); Lymphocytes # (A) 1.2 k/uL (1.0-4.8); Lymphocytes % (A) 13 %; MCH 30.6 pg (25.0-35.0); MCV 92.8 fL (80.0-100.0); Mean Platelet Volume 7.7; Monocytes # (A) 0.7 k/uL (0-1.0); Monocytes % (A) 8 %; Neutrophils # (A) 7.3 k/uL (1.3-7.7); Neutrophils % (A) 76 %; Platelet Count 223 k/uL (150-450); RBC 4.32 m/uL (4.30-5.90); RDW 12.8 % (11.5-15.5); WBC 9.6 k/uL (3.8-10.6)
[2019-09-01 09:10] LABS: ALT 16 U/L (4-49); AST 18 U/L (17-59); African American GFR (CKD) >90 (>60 ml/min/1.73 sqM); Alkaline Phosphatase 106 U/L (38-126); Anion Gap 11 mmol/L; Blood Urea Nitrogen 25 mg/dL (9-20); Calcium 9.6 mg/dL (8.4-10.2); Carbon Dioxide 26 mmol/L (22-30); Chloride 103 mmol/L (98-107); Glucose 198 mg/dL (74-99); Non-African American GFR(CKD) >90 (>60 ml/min/1.73 sqM); Potassium 4.7 mmol/L (3.5-5.1); Sodium 140 mmol/L (137-145); Total Bilirubin 0.7 mg/dL (0.2-1.3); Total Protein 6.7 g/dL (6.3-8.2)
[2019-09-01 10:13] VITALS: BP 110/58; RESP 18
== END 2019-09-01 10:05 | disposition home or self-care (01) ==
LOC: EC 07:40
DX: J06.9 Acute upper respiratory infection, unspecified (principal); H92.02 Otalgia, left ear; R07.81 Pleurodynia; I25.119 Atherosclerotic heart disease of native coronary artery with unspecified angina pectoris; E11.9 Type 2 diabetes mellitus without complications; K21.9 Gastro-esophageal reflux disease without esophagitis; E78.5 Hyperlipidemia, unspecified; I10 Essential (primary) hypertension; I25.2 Old myocardial infarction; H91.92 Unspecified hearing loss, left ear; Z87.891 Personal history of nicotine dependence; Z88.0 Allergy status to penicillin; Z79.4 Long term (current) use of insulin; Z79.899 Other long term (current) drug therapy; Z86.010 Personal history of colon polyps; Z95.5 Presence of coronary angioplasty implant and graft; Z90.89 Acquired absence of other organs; Z98.890 Other specified postprocedural states
CPT/HCPCS: 36415; 71046; 80053; 83605; 84484; 85025; 87040; 87502; 93005; 96360; 96361; 99284

== ENCOUNTER 2019-11-15 23:30 | Emergency (ER) | payer MEDICARE, BC ==
[2019-11-15 23:39] VITALS: RESP 18; TEMP 98
[2019-11-15] MEDS ORDERED: NITROGLYCERIN SL TABS 0.4 MG TAB SUBLINGUAL STA (23:47)
[2019-11-15] MEDS ORDERED: ASPIRIN 81 MG PO STA (23:47)
[2019-11-16 00:16] LABS: Basophils % (A) 1 %; Eosinophils # (A) 0.2 k/uL (0-0.7); Eosinophils % (A) 2 %; HCT 42.3 % (39.0-53.0); HGB 13.7 gm/dL (13.0-17.5); Lymphocytes # (A) 1.4 k/uL (1.0-4.8); Lymphocytes % (A) 20 %; MCHC 32.4 g/dL (31.0-37.0); MCV 92.7 fL (80.0-100.0); Mean Platelet Volume 7.9; Monocytes # (A) 0.5 k/uL (0-1.0); Monocytes % (A) 7 %; Neutrophils # (A) 4.7 k/uL (1.3-7.7); Neutrophils % (A) 68 %; Platelet Count 226 k/uL (150-450); RBC 4.56 m/uL (4.30-5.90); RDW 13.3 % (11.5-15.5)
[2019-11-16 00:25] LABS: ALT 20 U/L (4-49); AST 24 U/L (17-59); African American GFR (CKD) >90 (>60 ml/min/1.73 sqM); Albumin 4.2 g/dL (3.5-5.0); Alkaline Phosphatase 84 U/L (38-126); Anion Gap 8 mmol/L; Blood Urea Nitrogen 26 mg/dL (9-20); Calcium 9.3 mg/dL (8.4-10.2); Carbon Dioxide 27 mmol/L (22-30); Chloride 99 mmol/L (98-107); Glucose 244 mg/dL (74-99); Magnesium 2.1 mg/dL (1.6-2.3); Non-African American GFR(CKD) >90 (>60 ml/min/1.73 sqM); Potassium 4.5 mmol/L (3.5-5.1); Sodium 134 mmol/L (137-145); Total Bilirubin 0.6 mg/dL (0.2-1.3); Total Protein 6.6 g/dL (6.3-8.2)
[2019-11-16 00:26] LABS: INR 0.9 (<1.2); Partial Thromboplastin Time 22.8 sec (22.0-30.0); Prothrombin Time 9.7 sec (9.0-12.0)
--- NOTE | 2019-11-16 00:38 | XR ---
EXAMINATION TYPE: XR chest 1V DATE OF EXAM: 11/16/2019 COMPARISON: 09/01/2019 HISTORY: Cough third chest pain TECHNIQUE: FINDINGS: Heart and mediastinum are normal. There is minimal increased density at the left lateral jaylon ng base.. Diaphragm is normal. Bony thorax is intact. There are chest leads. IMPRESSION: There is new minimal infiltrate lateral left lung base compared to last exam.
[2019-11-16] MEDS ORDERED: AZITHROMYCIN 500 MG TAB PO STA (01:44)
--- NOTE | 2019-11-16 03:35 | ED ---
Chest Pain HPI - General Chief Complaint: Chest Pain Stated Complaint: Chest pain Time Seen by Provider: 11/15/19 23:46 Source: patient Mode of arrival: ambulatory - History of Present Illness Initial Comments: Lex is a 69yo M who presents to the ER today for evaluation of pleuritic left sided chest pain. Patient reports he has had a mild minimally productive cough, no shortness of breath or fever. He state that he was feeling well when he went to bed last night however he woke up with the sharp pain in the left side of his chest. Pain is worse with deep inspiration or coughing. Patient is a history of known coronary artery disease. Last cardiac event was number of years ago. Patient follows with his cardiology consultant on Cory basis. Patient is on aspirin and Plavix. Patient been compliant with medications. Patient reports this chest pain is not similar to previous cardiac events. - Related Data Home Medications Medication Instructions Recorded Confirmed Canagliflozin [Invokana] 300 mg PO AC-BRKFST 01/28/16 06/15/18 Dulaglutide [Trulicity] 1.5 mg SQ FR 01/28/16 06/15/18 Lisinopril [Prinivil] 5 mg PO DAILY 06/18/17 06/15/18 Metoprolol Tartrate 25 mg PO DAILY 06/18/17 06/15/18 glipiZIDE XL [Glucotrol XL] 20 mg PO DAILY 06/18/17 06/15/18 metFORMIN HCL 1,000 mg PO DAILY 06/18/17 06/15/18 Omeprazole 20 mg PO DAILY 06/25/17 06/15/18 Atorvastatin [Lipitor] 40 mg PO DAILY 03/03/18 06/15/18 Isosorbide Mononitrate ER [Imdur] 30 mg PO DAILY 03/03/18 06/15/18 Insulin Degludec [Tresiba 10 units INJ DAILY 06/14/18 06/15/18 Flextouch U-100] Previous Rx's Medication Instructions Recorded Nitroglycerin Sl Tabs [Nitrostat] 0.4 mg SUBLINGUAL Q5M PRN #1 bottle 04/10/16 Aspirin EC [Ecotrin] 325 mg PO DAILY #30 tablet. 06/28/17 Prasugrel [Effient] 10 mg PO DAILY #30 tab 06/28/17 Azithromycin [Zithromax Z-pack] 0 mg PO DIRECTED #6 tab 09/01/19 Erythromycin Ophth Oint [Romycin 1 applic BOTH EYES QID 5 Days #1 09/01/19 Ophth Oint] tube Ofloxacin 0.3% Otic Soln [Floxin 5 drops LEFT EAR BID 5 Days #1 09/01/19 0.3% Otic Soln] bottle Azithromycin [Zithromax Z-pack] 0 mg PO DIRECTED #6 tab 11/16/19 Allergies Allergy/AdvReac Type Severity Reaction Status Date / Time Penicillins Allergy Unknown Rash/Hives Verified 11/15/19 23:39 Review of Systems ROS Statement: Those systems with pertinent positive or pertinent negative responses have been documented in the HPI. ROS Other: All systems not noted in ROS Statement are negative. EKG Findings - EKG Comments: EKG Findings:: EKG was obtained due to complaint of chest pain, EKG was obtained at 2353, rate of 75 rhythm is sinus with leftward axis, normal intervals, LA prolonged at 178, QRS 86, QTC is [address] elevations or depressions no evidence of acute ischemia or infarction. Past Medical History Past Medical History: Coronary Artery Disease (CAD), Chest Pain / Angina, Tonja betes Mellitus, GERD/Reflux, Hyperlipidemia, Hypertension, Myocardial Infarction ([place]) Additional Past Medical History / Comment(s): NIDDM, cardiac murmur, 2 previous MIs, L ear deafness, benign colon polyps, Last Myocardial Infarction Date:: 04/22/16 History of Any Multi-Drug Resistant Organisms: None Reported Past Surgical History: Adenoidectomy, Ear Surgery, Heart Catheterization With Stent, Orthopedic Surgery, Tonsillectomy Additional Past Surgical History / Comment(s): 01/28/16 PTCA and stent and April 2016 and in June 2017, L ear mastoid surgery, colonoscopies/polypectomies, L hand index finger amputated Past Anesthesia/Blood Transfusion Reactions: No Reported Reaction Date of Last Stent Placement:: 06/28/17 Past Psychological History: Anxiety Smoking Status: Former smoker Past Alcohol Use History: Occasional Past Drug Use History: None Reported - Past Family History Father Family Medical History: Cancer, Coronary Artery Disease (CAD) Additional Family Medical History / Comment(s): Father had CABG prior to age 50yrs. He of esophageal cancer at the age of 79 yrs. Mother Family Medical History: Congestive Heart Failure (CHF), Osteoarthritis (OA) Additional Family Medical History / Comment(s): Mother of CHF at 86yrs of age. General Exam - General Exam Comments Initial Comments: Physical Exam GENERAL: Patient is well-developed and well-nourished. Patient is nontoxic and well- hydrated and is in no distress. HENT: Normocephalic, Atraumatic. EYES: PERRL, EOMI PULMONARY: Decreased breath sounds on the left CARDIOVASCULAR: There is a regular rate and rhythm without any murmurs gallops or rubs. ABDOMEN: Soft and nontender with normal bowel sounds. SKIN: Skin is clear with no lesions or rashes and otherwise unremarkable. : Deferred NEUROLOGIC: Patient is alert and oriented x3. Moving all extremities spontaneously MUSCULOSKELETAL: Normal extremities with adequate strength and full range of motion. No lower extremity swelling or edema. No calf tenderness. PSYCHIATRIC: Normal psychiatric evaluation. Course Vital Signs 11/15/19 11/16/19 11/16/19 23:36 00:13 01:19 Temperature 98.0 F Pulse Rate 77 84 68 Respiratory 18 18 18 Rate Blood Pressure 173/80 141/74 132/71 O2 Sat by Pulse 94 L 97 97 Oximetry 11/16/19 11/16/19 01:52 04:00 Temperature Pulse Rate 70 74 Respiratory 18 18 Rate Blood Pressure 138/77 130/75 O2 Sat by Pulse 98 98 Oximetry Chest [facility] The patient was seen and evaluated history is obtained from patient 69-year-old male with pleuritic left-sided chest pain Given the patient's history cardiac workup was initiated X-ray confirmed a left lower lobe pneumonia patient was given first dose of azithromycin here Patient has no Sirs criteria or signs of sepsis, he is not hypoxic he's resting comfortably oxygen saturation high 90s on room air Patient is started only wanted half hours prior to arrival therefore decision was made to keep the patient need emergency department for repeat troponin. Repeat heart was obtained and again was negative. At this time uncomplicated for the patient's pleuritic left-sided chest pain secondary to pneumonia and not related to acute coronary syndrome. Patient expresses relief over this and is comfortable with the plan for discharge home oral antibiotics, supportive care and outpatient follow-up with primary care physician and cardiology consultant. Return parameters were discussed all questions pertaining care were answered patient was discharged home in stable condition. Disposition Clinical Impression: Pneumonia Disposition: HOME SELF-CARE Condition: Stable Instructions (If sedation given, give patient instructions): Bacterial Pneumonia (DC) Prescriptions: Azithromycin [Zithromax Z-pack] 0 mg PO DIRECTED #6 tab Is patient prescribed a controlled substance at d/c from ED?: No Referrals: Francy Hermosillo DO [Primary Care Provider] - 1-2 days
[2019-11-16 04:00] VITALS: BP 130/75; PULSE 74
== END 2019-11-16 04:01 | disposition home or self-care (01) ==
LOC: EC 23:30
DX: J18.9 Pneumonia, unspecified organism (principal); I25.119 Atherosclerotic heart disease of native coronary artery with unspecified angina pectoris; E11.9 Type 2 diabetes mellitus without complications; I10 Essential (primary) hypertension; I25.2 Old myocardial infarction; E78.5 Hyperlipidemia, unspecified; F41.9 Anxiety disorder, unspecified; K21.9 Gastro-esophageal reflux disease without esophagitis; Z79.4 Long term (current) use of insulin; Z79.02 Long term (current) use of antithrombotics/antiplatelets; Z79.84 Long term (current) use of oral hypoglycemic drugs; Z79.899 Other long term (current) drug therapy; Z88.0 Allergy status to penicillin; Z95.5 Presence of coronary angioplasty implant and graft; Z87.891 Personal history of nicotine dependence
CPT/HCPCS: 36415; 71045; 80053; 83735; 83880; 84484; 85025; 85610; 85730; 93005; 99285

== ENCOUNTER 2020-09-24 18:57 | Observation (INO) | payer MEDICARE, BC ==
[2020-09-24] MEDS ORDERED: NITROGLYCERIN OINT 1 INCH/GM PACKET TOPICAL STA (19:19)
--- NOTE | 2020-09-24 19:23 | ED ---
Chest Pain HPI - General Chief Complaint: Chest Pain Stated Complaint: chest pain Time Seen by Provider: 09/24/20 19:12 Source: patient, RN notes reviewed Mode of arrival: wheelchair Limitations: no limitations - History of Present Illness Initial Comments: Is a 70-year-old male with a history of heart disease with 4 stents who did have a stress test done today since the past couple days she's been having pain is upper back and radiated up to his shoulder. He also is had exertional dyspnea and some shortness of breath with it. He states he had pain when he got home today from a stress test was mild in nature he states right now he has very minimal discomfort. No fevers chills nausea vomiting sweats no other symptoms at this time. Patient is a type II diabetic. He also states that of his med list he was told to stop his isosorbide and his glipizide. Also has been on Cialis he has not taken it since last week he states more than the 3 days ago MD Complaint: chest pain - Related Data Home Medications Medication Instructions Recorded Confirmed Canagliflozin [Invokana] 300 mg PO DAILY 01/28/16 09/24/20 Dulaglutide [Trulicity] 1.5 mg SQ FERNANDEZ 01/28/16 09/24/20 Metoprolol Tartrate 25 mg PO DAILY 06/18/17 09/24/20 lisinopriL [Prinivil] 5 mg PO DAILY 06/18/17 09/24/20 metFORMIN HCL 1,000 mg PO DAILY 06/18/17 09/24/20 Omeprazole 20 mg PO DAILY 06/25/17 09/24/20 Atorvastatin [Lipitor] 40 mg PO DAILY 03/03/18 09/24/20 Insulin Degludec [Tresiba 20 units SQ DAILY 06/14/18 09/24/20 Flextouch U-100] Nitroglycerin Sl Tabs [Nitrostat] 0.4 mg SL Q5M PRN 09/24/20 09/24/20 Sildenafil Citrate 50 mg PO DAILY PRN 09/24/20 09/24/20 Previous Rx's Medication Instructions Recorded Aspirin EC [Ecotrin] 325 mg PO DAILY #30 tablet. 06/28/17 Prasugrel [Effient] 10 mg PO DAILY #30 tab 06/28/17 Allergies Allergy/AdvReac Type Severity Reaction Status Date / Time Penicillins Allergy Unknown Rash/Hives Verified 09/24/20 21:51 Review of Systems ROS Statement: Those systems with pertinent positive or pertinent negative responses have been documented in the HPI. ROS Other: All systems not noted in ROS Statement are negative. EKG Findings - EKG Results: EKG: interpreted by ARLEEN, sinus rhythm (Sinus rhythm of 85. Interval 176 QRS 80 QT since QTC 56/423 left exodeviation inferior infarct of undetermined age this is compared to an EKG dated 11/15/19 showing no change) Past Medical History Past Medical History: Coronary Artery Disease (CAD), Chest Pain / Angina, Diabetes Mellitus, GERD/Reflux, Hyperlipidemia, Hypertension, Myocardial Infarction (NM) Additional Past Medical History / Comment(s): NIDDM, cardiac murmur, 2 previous MIs, L ear deafness, benign colon polyps, Last Myocardial Infarction Date:: 04/22/16 History of Any Multi-Drug Resistant Organisms: None Reported Past Surgical History: Adenoidectomy, Ear Surgery, Heart Catheterization, Heart Catheterization With Stent, Orthopedic Surgery, Tonsillectomy Additional Past Surgical History / Comment(s): 01/28/16 PTCA and stent and April 2016 and in June 2017, L ear mastoid surgery, colonoscopies/polypectomies, L hand index finger amputated Past Anesthesia/Blood Transfusion Reactions: No Reported Reaction Date of Last Stent Placement:: 06/28/17 Past Psychological History: Anxiety Smoking Status: Former smoker Past Alcohol Use History: Occasional Past Drug Use History: None Reported - Past Family History Father Family Medical History: Cancer, Coronary Artery Disease (CAD) Additional Family Medical History / Comment(s): Father had CABG prior to age 50yrs. He of esophageal cancer at the age of 79 yrs. Mother Family Medical History: Congestive Heart Failure (CHF), Osteoarthritis (OA) Additional Family Medical History / Comment(s): Mother of CHF at 86yrs of age. General Exam - General Exam Comments Initial Comments: This is a well-developed well-nourished awake alert oriented times 3 male Limitations: no limitations General appearance: alert, in no apparent distress Head exam: Present: atraumatic, normocephalic, normal inspection Eye exam: Present: normal appearance, PERRL, EOMI. Absent: scleral icterus, conjunctival injection, periorbital swelling ENT exam: Present: normal exam, mucous membranes moist Neck exam: Present: normal inspection. Absent: tenderness, meningismus, lymphadenopathy Respiratory exam: Present: normal lung sounds bilaterally, chest wall tenderness (Tennis palpation of the right costal sternal margin this does not reproduce the other pain the patient was complaining about.). Absent: respiratory distress, wheezes, rales, rhonchi, stridor Cardiovascular Exam: Present: regular rate, normal rhythm, normal heart sounds. Absent: systolic murmur, diastolic murmur, rubs, gallop, clicks GI/Abdominal exam: Present: soft, normal bowel sounds. Absent: distended, tenderness, guarding, rebound, rigid Extremities exam: Present: normal inspection, full ROM, normal capillary refill. Absent: tenderness, pedal edema, joint swelling, calf tenderness Back exam: Present: normal inspection Neurological exam: Present: alert, oriented X3, CN II-XII intact Psychiatric exam: Present: normal affect, normal mood Skin exam: Present: warm, dry, intact, normal color. Absent: rash Course Vital Signs 09/24/20 09/24/20 09/24/20 19:02 19:20 20:00 Temperature 97.3 F L Pulse Rate 89 73 Respiratory 18 20 18 Rate Blood Pressure 147/71 137/76 O2 Sat by Pulse 97 96 Oximetry 09/24/20 09/24/20 20:49 22:00 Temperature Pulse Rate 76 70 Respiratory 20 18 Rate Blood Pressure 111/73 128/70 O2 Sat by Pulse 97 98 Oximetry - Reevaluation(s) Reevaluation #1: 09/24/20 22:25 Reevaluation the patient is pain in his back and shoulder area has improved he still has sharp pain in the right costal sternal margin. He does admit that he was playing his drums quite hard this afternoon after stress test. Chest Pain MDM - MDM I did review the imaging and reports no evidence of acute findings including no evidence of PE. I did discuss the case with Dr. Barahona. Patient be admitted with consultation by cardiology. Disposition Clinical Impression: Unstable angina pectoris, Chest pain, Costochondritis Disposition: ADMITTED IP TO THIS HOSP Condition: Fair Referrals: Francy Hermosillo DO [Primary Care Provider] - 1-2 days
[2020-09-24 19:44] LABS: Basophils % (A) 0 %; Eosinophils # (A) 0.1 k/uL (0-0.7); Eosinophils % (A) 1 %; HCT 44.8 % (39.0-53.0); HGB 15.1 gm/dL (13.0-17.5); Lymphocytes # (A) 1.2 k/uL (1.0-4.8); Lymphocytes % (A) 14 %; MCH 31.1 pg (25.0-35.0); MCHC 33.7 g/dL (31.0-37.0); MCV 92.4 fL (80.0-100.0); Mean Platelet Volume 7.5; Monocytes # (A) 0.4 k/uL (0-1.0); Monocytes % (A) 5 %; Neutrophils # (A) 6.8 k/uL (1.3-7.7); Neutrophils % (A) 78 %; Platelet Count 227 k/uL (150-450); RBC 4.85 m/uL (4.30-5.90); RDW 12.9 % (11.5-15.5); WBC 8.8 k/uL (3.8-10.6)
[2020-09-24 20:01] LABS: INR 0.9 (<1.2); Partial Thromboplastin Time 20.5 sec (22.0-30.0); Prothrombin Time 9.9 sec (9.0-12.0)
[2020-09-24 20:07] LABS: D-Dimer 1.58 mg/L FEU (<0.60)
[2020-09-24 20:09] LABS: ALT 35 U/L (4-49); AST 25 U/L (17-59); African American GFR (CKD) >90 (>60 ml/min/1.73 sqM); Albumin 4.6 g/dL (3.5-5.0); Alkaline Phosphatase 112 U/L (38-126); Anion Gap 11 mmol/L; Blood Urea Nitrogen 30 mg/dL (9-20); Calcium 10.1 mg/dL (8.4-10.2); Carbon Dioxide 26 mmol/L (22-30); Chloride 100 mmol/L (98-107); Creatine Kinase 35 U/L (55-170); Glucose 285 mg/dL (74-99); Magnesium 2.1 mg/dL (1.6-2.3); Non-African American GFR(CKD) 89 (>60 ml/min/1.73 sqM); Potassium 4.4 mmol/L (3.5-5.1); Sodium 137 mmol/L (137-145); Total Bilirubin 0.7 mg/dL (0.2-1.3); Total Protein 7.4 g/dL (6.3-8.2)
--- NOTE | 2020-09-24 21:05 | XR ---
EXAMINATION TYPE: XR chest 2V DATE OF EXAM: 09/24/2020 COMPARISON: 11/16/2019 HISTORY: Chest pain TECHNIQUE: 2 views FINDINGS: There is no heart failure nor confluent pneumonic infiltrate. Costophrenic angles are clear . There are no hilar masses. There are chest leads. Bony thorax is intact. IMPRESSION: No active cardiopulmonary disease. Normal heart. There is improved inspiration compared t o old exam.
--- NOTE | 2020-09-24 21:18 | CT ---
EXAMINATION TYPE: CT angio chest DATE OF EXAM: 09/24/2020 COMPARISON: None HISTORY: Elevated d-dimer, shortness of breath and back pain post stress test today. CT DLP: 298.1 mGycm Automated exposure control for dose reduction was used. CONTRAST: Performed with IV Contrast, patient injected with 80ml mL of Isovue 370. There are 3-D post processed images. There is mild subsegmental atelectasis at the posterior lung bases. There is no pleural effusion. The re is no pericardial effusion. Heart appears normal. There is no mediastinal adenopathy. There are no hilar masses. Thoracic aorta is intact. There is no aneurysm or dissection. There is coronary artery dense calcification. There is normal contrast opacification of the pulmonary arteries. There are no filling defects. There is some spurring in the thoracic spine. The ribs appear intact. Sternum is intact. Upper abdominal s oft tissues are intact. IMPRESSION: No evidence of pulmonary embolism. Mild subsegmental atelectasis. No suspicious pulmonary mass.
[2020-09-24] MEDS ORDERED: HEPARIN SODIUM,PORCINE 5,000 UNIT/ML 1 ML VIAL IV ONE (22:26)
[2020-09-24] MEDS ORDERED: NITROGLYCERIN SL TABS 0.4 MG TAB SUBLINGUAL PRN (22:26)
[2020-09-24] MEDS ORDERED: HEPARIN SOD,PORK IN 0.45% NACL 25,000 UNIT in 0.45% NACL 1 250ML.BAG IV SCH (22:30)
[2020-09-25] MEDS: NITROGLYCERIN OINT 1 INCH/GM PACKET TOPICAL SCH ×2 (01:05→06:07)
[2020-09-25 02:05] VITALS: RESP 16
[2020-09-25 02:43] LABS: Glucose,Whole Blood 167 mg/dL (75-99)
[2020-09-25 05:53] LABS: Cholesterol 117 mg/dL (<200); HDL Cholesterol 29 mg/dL (40-60); LDL Cholesterol,Calculated 62 mg/dL (0-99); Triglycerides 130 mg/dL (<150)
[2020-09-25 07:29] LABS: Glucose,Whole Blood 177 mg/dL (75-99)
[2020-09-25 07:56] VITALS: BP 105/65; PULSE 72; TEMP 97.6
[2020-09-25] MEDS ORDERED: ASPIRIN 325 MG TAB PO SCH (09:00)
[2020-09-25] MEDS ORDERED: METOPROLOL TARTRATE 25 MG TAB PO SCH (09:00)
[2020-09-25] MEDS ORDERED: ATORVASTATIN 40 MG TAB PO SCH (09:00)
[2020-09-25] MEDS ORDERED: ASPIRIN 81 MG PO SCH (09:00)
[2020-09-25] MEDS ORDERED: metFORMIN 500 MG TAB PO SCH (09:00)
[2020-09-25] MEDS ORDERED: lisinopriL 5 MG TAB PO SCH (09:00)
[2020-09-25] MEDS ORDERED: INSULIN DETEMIR (LEVEMIR) 100 UNIT/ML SYR SQ SCH (09:00)
[2020-09-25] MEDS ORDERED: PRASUGREL 10 MG TAB PO SCH (09:00)
[2020-09-25] MEDS ORDERED: PANTOPRAZOLE 40 MG TABLET PO SCH (09:00)
[2020-09-25] MEDS ORDERED: NON FORMULARY DRUG (Canagliflozin [Invokana] 300 MG Tablet) PO SCH (09:00)
[2020-09-25] MEDS: INSULIN ASPART (NovoLOG) 100 UNIT/ML VIAL SQ SCH ×2 (09:14→12:52)
--- NOTE | 2020-09-25 10:56 | CONS ---
CONSULTATION Mr. Garcia is a 70-year-old male with known history of coronary artery disease, hypertension, hyperlipidemia, diabetes mellitus, who presented to the emergency room with not feeling well. The patient has been following with Dr. Perales on a regular basis and has a known history of multiple percutaneous revascularization, most recently in 2018 to the diagonal branch. He has been feeling tired over the last few weeks and at times at rest he gets discomfort between the upper shoulder, yet when he walks he feels okay. He has mild dyspnea on exertion, but not significant. At the time of his presentation with his non STEMI in the past he had discomfort in the left arm, which he has not had since. He denies any dizziness or palpitation. No PND. No orthopnea. No peripheral edema. He underwent a stress echocardiogram yesterday as an outpatient that revealed no evidence of inducible ischemia with borderline positive EKG changes. His coronary risk factors are remarkable for hypertension, hyperlipidemia, and diabetes. He has stopped smoking over 30 years ago. MEDICATIONS: His medications include aspirin once a day, Lipitor 40 mg daily, Invokana, Trulicity, insulin, metoprolol tartrate 25 mg daily, omeprazole 20 mg daily, Effient 10 mg daily, lisinopril 5 mg daily, metformin 1 gram daily, and sildenafil on a regular basis. REVIEW OF SYSTEMS: RESPIRATORY SYSTEM: He has no documented history of asthma, emphysema. No recent wheezing. GI SYSTEM: No nausea, no vomiting. No recent GI bleeding. SYSTEM: No dysuria or hematuria. NERVOUS SYSTEM: No stroke or seizure. PHYSICAL EXAMINATION: He is a 70-year-old male, alert, oriented, in no apparent distress. Blood pressure 105/60 with the heart rate in 70s. HEAD: Normocephalic. EYES: Sclerae anicteric. NECK: Good carotid upstroke. No bruit. No jugular venous distention. LUNGS: Clear to auscultation. HEART: Regular rate and rhythm. S1, S2. No S3. No S4. No rub. ABDOMEN: Soft, nontender. Positive bowel sounds. No organomegaly. EXTREMITIES: No edema. Intact distal pulses. LAB DATA: Lab data revealed a troponin less than 0.012. Cholesterol 117, LDL of 62. D-dimer 1.58. BUN and creatinine of 30 and 0.87. Hemoglobin of 15.1. EKG revealed a sinus mechanism, normal axis and intervals, evidence to suggest inferior wall myocardial infarction. CT angiogram of the chest shows no evidence of pulmonary embolism. IMPRESSION: 1. Back discomfort, atypical pattern for ischemic heart, probably noncardiac. The patient has underwent a stress echocardiogram yesterday that revealed no evidence of inducible ischemia. 2. History of coronary artery disease. 3. Hypertension. 4. Hyperlipidemia. 5. Diabetes mellitus. RECOMMENDATION: From the cardiac standpoint, I will stop the heparin, increase his activity. If he remains stable, I would expect he should be able to be discharged home today and follow up with Dr. Perales next week as scheduled. Thank you for this consult. Will follow with you. MMODL / IJN: [id number] /
[2020-09-25 11:21] LABS: Glucose,Whole Blood 279 mg/dL (75-99)
--- NOTE | 2020-09-25 11:52 | ECHOF ---
Referral Reason:Chest pain MEASUREMENTS -------- HEIGHT: 180.3 cm WEIGHT: 81.6 kg BP: 133/77 RVIDd: 2.9 cm (< 3.3) IVSd: 0.9 cm (0.6 - 1.1) LVIDd: 4.2 cm (3.9 - 5.3) LVPWd: 1.2 cm (0.6 - 1.1) IVSs: 1.7 cm LVIDs: 2.0 cm LVPWs: 1.8 cm LAESV Index (A-L): 11.59 ml/m Ao Diam: 2.9 cm (2.0 - 3.7) AV Cusp: 2.0 cm (1.5 - 2.6) LA Diam: 3.0 cm (2.7 - 3.8) MV EXCURSION: 16.775 mm (> 18.000) MV EF SLOPE: 96 mm/s (70 - 150) EPSS: 0.9 cm MV E Adam: 0.62 m/s MV DecT: 247 ms MV A Adam: 0.73 m/s MV E/A Ratio: 0.86 RAP: 5.00 mmHg RVSP: 12.72 mmHg FINDINGS -------- Sinus rhythm. This was a technically adequate study. The left ventricular size is normal. There is borderline concentric left ventricular hypertrophy. Overall left ventricular systolic function is normal with, an EF between 55 - 60 %. The diastolic filling pattern is normal for the age of the patient 13.60. The right ventricle is normal in size. Normal LA size by volume 22+/-6 ml/m2. The right atrial size is normal. The aortic valve is trileaflet, and appears structurally normal. No aortic stenosis or regurgitation. The mitral valve is normal. Mild mitral regurgitation is present. The tricuspid valve appears structurally normal. Mild tricuspid regurgitation present. Right vent ricular systolic pressure is normal at < 35 mmHg. There is no pulmonic regurgitation present. The aortic root size is normal. Normal inferior vena cava with normal inspiratory collapse consistent with estimated right atrial pre ssure of 5 mmHg. There is no pericardial effusion. CONCLUSIONS -------- 1. There is borderline concentric left ventricular hypertrophy. 2. Overall left ventricular systolic function is normal with, an EF between 55 - 60 %. 3. Normal LA size by volume 22+/-6 ml/m2. 4. The aortic valve is trileaflet, and appears structurally normal. No aortic stenosis or regurgitati on. 5. Mild mitral regurgitation is present. 6. Mild tricuspid regurgitation present. 7. There is no pericardial effusion. DRAWING FRAME TENDER: Vaishnavi Nation RDCS
== END 2020-09-25 13:40 | disposition home or self-care (01) ==
LOC: EC 18:57 → 6NMEDSUR 22:30
PROVIDERS: ADMIT Family Medicine; ATTEND Family Medicine
DX: M54.89 Other dorsalgia (principal); R07.9 Chest pain, unspecified; R06.00 Dyspnea, unspecified; R06.02 Shortness of breath; I25.10 Atherosclerotic heart disease of native coronary artery without angina pectoris; I10 Essential (primary) hypertension; E78.5 Hyperlipidemia, unspecified; E11.9 Type 2 diabetes mellitus without complications; K21.9 Gastro-esophageal reflux disease without esophagitis; I25.2 Old myocardial infarction; H91.92 Unspecified hearing loss, left ear; F41.9 Anxiety disorder, unspecified; Z95.5 Presence of coronary angioplasty implant and graft; Z79.899 Other long term (current) drug therapy; Z79.4 Long term (current) use of insulin; Z88.0 Allergy status to penicillin; Z86.010 Personal history of colon polyps; Z90.89 Acquired absence of other organs; Z98.890 Other specified postprocedural states; Z89.022 Acquired absence of left finger(s); Z87.891 Personal history of nicotine dependence; Z79.82 Long term (current) use of aspirin; Z80.0 Family history of malignant neoplasm of digestive organs; Z82.49 Family history of ischemic heart disease and other diseases of the circulatory system; Z82.61 Family history of arthritis
CPT/HCPCS: 96366 ×2; 93005 ×2; 96376; 96365; 99285; 36415; 93306; 85379; 80061; 80053; 82550; 83735; 84484 ×2; 85025; 85610; 85730 ×2; 71046; 71275; G0378 ×2; J1644 ×2; Q9967; 93351

== ENCOUNTER → 2020-09-24 | Outpatient (CLI) | payer MEDICARE, BC ==
--- NOTE | 2020-09-24 12:35 | ECHOS ---
STRESS ECHOCARDIOGRAM INDICATIONS: Hypertension. MEDICATIONS: BASELINE HEART RATE: 84 BASELINE BLOOD PRESSURE: 123/72 MAXIMUM HEART RATE: 149 MAXIMUM BLOOD PRESSURE: 220/88 85% MPHR: 129 100% MPHR: 152 METS: 10.7 MAXIMUM STAGE REACHED: IV TOTAL EXERCISE TIME: 9 minutes 19 seconds CLINICAL INFORMATION: Baseline rhythm is a sinus mechanism, rate of 84, normal axis and intervals, nonspecific ST-T wave changes. Baseline blood pressure 123/72 mmHg. Patient exercised on Josiah protocol for 9 minutes and 19 seconds reaching peak rate 149 beats per minute which is equal to 98% maximum predicted heart rate. Peak blood pressure 220/88 mmHg. Test was terminated secondary to fatigue. There was no chest pain. Electrocardiograph monitoring revealed a [address]-segment depression inferolateral leads that resolved in recovery. Baseline echocardiogram revealed normal wall motion. At peak exercise, there was normal wall motion augmentation with no hypokinesis or dyskinesis. CONCLUSION: 1. Average exercise tolerance with borderline positive electrocardiograph stress testing. 2. Normal stress echocardiogram with no evidence of stress-induced ischemia. MMODL / IJN: [id number] /
== END | disposition home or self-care (01) ==
LOC: RADNMMAIN 09:47
PROVIDERS: ATTEND Family Medicine
DX: I25.10 Atherosclerotic heart disease of native coronary artery without angina pectoris (principal); I10 Essential (primary) hypertension
CPT/HCPCS: 93351

== ENCOUNTER 2021-02-01 17:33 | Observation (INO) | payer MEDICARE, BC ==
[2021-02-01] MEDS ORDERED: ASPIRIN 81 MG PO STA (17:57)
[2021-02-01] MEDS ORDERED: NITROGLYCERIN OINT 1 INCH/GM PACKET TOPICAL STA (17:57)
--- NOTE | 2021-02-01 18:00 | ED ---
General Adult HPI - General Chief complaint: Chest Pain Stated complaint: chest pain/numbness in left arm Time Seen by Provider: 02/01/21 17:43 Source: patient, RN notes reviewed Mode of arrival: wheelchair Limitations: no limitations - History of Present Illness Initial comments: Patient is a pleasant 70-year-old male presenting to emergency Department with chest discomfort. Onset was the last couple hours. Discomfort is mild and described as an ache. Patient took nitroglycerin with improvement of symptoms. Mild associated dyspnea and nausea. Patient was very diaphoretic earlier. Discomfort does radiate towards left arm. Symptoms are somewhat similar to previous heart attack. Patient has had previous stents. - Related Data Home Medications Medication Instructions Recorded Confirmed Canagliflozin [Invokana] 300 mg PO DAILY 01/28/16 09/24/20 Dulaglutide [Trulicity] 1.5 mg SQ FERNANDEZ 01/28/16 09/24/20 Metoprolol Tartrate 25 mg PO DAILY 06/18/17 09/24/20 lisinopriL [Prinivil] 5 mg PO DAILY 06/18/17 09/24/20 metFORMIN HCL 1,000 mg PO DAILY 06/18/17 09/24/20 Omeprazole 20 mg PO DAILY 06/25/17 09/24/20 Atorvastatin [Lipitor] 40 mg PO DAILY 03/03/18 09/24/20 Insulin Degludec [Tresiba 20 units SQ DAILY 06/14/18 09/24/20 Flextouch U-100] Nitroglycerin Sl Tabs [Nitrostat] 0.4 mg SL Q5M PRN 09/24/20 09/24/20 Sildenafil Citrate 50 mg PO DAILY PRN 09/24/20 09/24/20 Previous Rx's Medication Instructions Recorded Prasugrel [Effient] 10 mg PO DAILY #30 tab 06/28/17 Aspirin 81 mg PO DAILY chew 09/25/20 Allergies Allergy/AdvReac Type Severity Reaction Status Date / Time Penicillins Allergy Unknown Rash/Hives Verified 02/01/21 17:38 Review of Systems ROS Statement: Those systems with pertinent positive or pertinent negative responses have been documented in the HPI. ROS Other: All systems not noted in ROS Statement are negative. Constitutional: Denies: fever Eyes: Denies: eye pain ENT: Denies: ear pain Respiratory: Denies: cough Cardiovascular: Reports: as per HPI, chest pain Endocrine: Denies: fatigue Gastrointestinal: Reports: nausea. Denies: abdominal pain Genitourinary: Denies: dysuria Musculoskeletal: Denies: back pain Skin: Denies: rash Neurological: Denies: weakness Past Medical History Past Medical History: Coronary Artery Disease (CAD), Chest Pain / Angina, Diabetes Mellitus, GERD/Reflux, Hyperlipidemia, Hypertension, Myocardial Infarction (MN) Additional Past Medical History / Comment(s): NIDDM, cardiac murmur, 2 previous MIs, L ear deafness, benign colon polyps Last Myocardial Infarction Date:: 04/22/16 History of Any Multi-Drug Resistant Organisms: None Reported Past Surgical History: Adenoidectomy, Ear Surgery, Heart Catheterization, Heart Catheterization With Stent, Orthopedic Surgery, Tonsillectomy Additional Past Surgical History / Comment(s): 01/28/16 PTCA and stent and April 2016 and in June 2017, L ear mastoid surgery, colonoscopies/polypectomies, L hand index finger amputated, has phantom pain at times. Past Anesthesia/Blood Transfusion Reactions: No Reported Reaction Date of Last Stent Placement:: 06/28/17 Past Psychological History: No Psychological Hx Reported Smoking Status: Former smoker Past Alcohol Use History: Occasional Past Drug Use History: None Reported - Past Family History Father Family Medical History: Cancer, Coronary Artery Disease (CAD) Additional Family Medical History / Comment(s): Father had CABG prior to age 50yrs. He of esophageal cancer at the age of 79 yrs. Mother Family Medical History: Congestive Heart Failure (CHF), Osteoarthritis (OA) Additional Family Medical History / Comment(s): Mother of CHF at 86yrs of age. General Exam Limitations: no limitations General appearance: alert, in no apparent distress Head exam: Present: normocephalic Eye exam: Present: normal appearance Neck exam: Present: normal inspection Respiratory exam: Present: normal lung sounds bilaterally. Absent: chest wall tenderness Cardiovascular Exam: Present: regular rate, normal rhythm, normal heart sounds Expanded Peripheral pulses: 2+: Radial (R), Radial (L), Posterior Tibialis (R), Posterior Tibialis (L) GI/Abdominal exam: Present: soft. Absent: tenderness Extremities exam: Present: normal inspection. Absent: pedal edema, calf tenderness Neurological exam: Present: alert Psychiatric exam: Present: normal affect, normal mood Skin exam: Present: normal color Course Vital Signs 02/01/21 02/01/21 02/01/21 17:36 18:47 18:54 Temperature 98.0 F Pulse Rate 87 88 Respiratory 18 18 18 Rate Blood Pressure 131/66 103/64 O2 Sat by Pulse 97 98 Oximetry EKG Findings - EKG Comments: EKG Findings:: Normal sinus rhythm with rate of 88. SC 176. QRS 84. QT 364. QTC 440. Left axis. Normal QRS. No acute ST change. Medical Decision Making - Medical Decision Making Patient reevaluated and updated. Patient resting comfortably in bed. Patient and family updated on results and plan. Case discussed in detail with Dr. Strong, covering for Dr. Hermosillo, who will admit. - Lab Data Result diagrams: 02/01/21 18:15 02/01/21 18:15 Lab Results 02/01/21 02/01/21 02/01/21 Range/Units 18:15 18:15 18:15 WBC 12.6 H (3.8-10.6) k/uL RBC 4.62 (4.30-5.90) m/uL Hgb 14.0 (13.0-17.5) gm/dL Hct 42.7 (39.0-53.0) % MCV 92.4 (80.0-100.0) fL MCH 30.2 (25.0-35.0) pg MCHC 32.7 (31.0-37.0) g/dL RDW 12.9 (11.5-15.5) % Plt Count 222 (150-450) k/uL MPV 7.9 Neutrophils % 88 % Lymphocytes % 6 % Monocytes % 5 % Eosinophils % 1 % Basophils % 0 % Neutrophils # 11.0 H (1.3-7.7) k/uL Lymphocytes # 0.7 L (1.0-4.8) k/uL Monocytes # 0.6 (0-1.0) k/uL Eosinophils # 0.1 (0-0.7) k/uL Basophils # 0.0 (0-0.2) k/uL PT 9.9 (9.0-12.0) sec INR 0.9 (<1.2) APTT 15.8 L (22.0-30.0) sec D-Dimer 1.27 H (<0.60) mg/L FEU Sodium 136 L (137-145) mmol/L Potassium 5.4 H (3.5-5.1) mmol/L Chloride 99 (98-107) mmol/L Carbon Dioxide 23 (22-30) mmol/L Anion Gap 14 mmol/L BUN 32 H (9-20) mg/dL Creatinine 0.84 (0.66-1.25) mg/dL Est GFR (CKD-EPI)AfAm >90 (>60 ml/min/1.73 sqM) Est GFR (CKD-EPI)NonAf >90 (>60 ml/min/1.73 sqM) Glucose 300 H (74-99) mg/dL Calcium 10.4 H (8.4-10.2) mg/dL Magnesium 2.2 (1.6-2.3) mg/dL Total Bilirubin 0.6 (0.2-1.3) mg/dL AST 28 (17-59) U/L ALT 30 (4-49) U/L Alkaline Phosphatase 100 (38-126) U/L Troponin I (0.000-0.034) ng/mL Total Protein 7.0 (6.3-8.2) g/dL Albumin 4.7 (3.5-5.0) g/dL 02/01/21 Range/Units 18:15 WBC (3.8-10.6) k/uL RBC (4.30-5.90) m/uL Hgb (13.0-17.5) gm/dL Hct (39.0-53.0) % MCV (80.0-100.0) fL MCH (25.0-35.0) pg MCHC (31.0-37.0) g/dL RDW (11.5-15.5) % Plt Count (150-450) k/uL MPV Neutrophils % % Lymphocytes % % Monocytes % % Eosinophils % % Basophils % % Neutrophils # (1.3-7.7) k/uL Lymphocytes # (1.0-4.8) k/uL Monocytes # (0-1.0) k/uL Eosinophils # (0-0.7) k/uL Basophils # (0-0.2) k/uL PT (9.0-12.0) sec INR (<1.2) APTT (22.0-30.0) sec D-Dimer (<0.60) mg/L FEU Sodium (137-145) mmol/L Potassium (3.5-5.1) mmol/L Chloride (98-107) mmol/L Carbon Dioxide (22-30) mmol/L Anion Gap mmol/L BUN (9-20) mg/dL Creatinine (0.66-1.25) mg/dL Est GFR (CKD-EPI)AfAm (>60 ml/min/1.73 sqM) Est GFR (CKD-EPI)NonAf (>60 ml/min/1.73 sqM) Glucose (74-99) mg/dL Calcium (8.4-10.2) mg/dL Magnesium (1.6-2.3) mg/dL Total Bilirubin (0.2-1.3) mg/dL AST (17-59) U/L ALT (4-49) U/L Alkaline Phosphatase (38-126) U/L Troponin I 0.016 (0.000-0.034) ng/mL Total Protein (6.3-8.2) g/dL Albumin (3.5-5.0) g/dL - Radiology Data Radiology results: report reviewed (CT angios chest shows negative exam.), image reviewed (Two-view chest x-ray reveals no acute process.) Disposition Clinical Impression: Chest pain Disposition: ADMITTED IP TO THIS HOSP Is patient prescribed a controlled substance at d/c from ED?: No Referrals: Francy Hermosillo DO [Primary Care Provider] - 1-2 days Decision Time: 20:25
[2021-02-01 18:27] LABS: Basophils % (A) 0 %; Eosinophils # (A) 0.1 k/uL (0-0.7); Eosinophils % (A) 1 %; HCT 42.7 % (39.0-53.0); Lymphocytes # (A) 0.7 k/uL (1.0-4.8); Lymphocytes % (A) 6 %; MCH 30.2 pg (25.0-35.0); MCHC 32.7 g/dL (31.0-37.0); MCV 92.4 fL (80.0-100.0); Mean Platelet Volume 7.9; Monocytes # (A) 0.6 k/uL (0-1.0); Monocytes % (A) 5 %; Neutrophils % (A) 88 %; Platelet Count 222 k/uL (150-450); RBC 4.62 m/uL (4.30-5.90); RDW 12.9 % (11.5-15.5); WBC 12.6 k/uL (3.8-10.6)
--- NOTE | 2021-02-01 18:28 | XR ---
EXAMINATION TYPE: XR chest 2V DATE OF EXAM: 02/01/2021 COMPARISON: 09/24/2020 HISTORY: Short of breath chest pressure TECHNIQUE: 2 views FINDINGS: Heart is normal. Lungs are clear of consolidation. There are no hilar masses. Costophrenic angles are clear. Bony thorax is intact. IMPRESSION: No active cardiopulmonary disease. No change.
[2021-02-01 18:33] LABS: ALT 30 U/L (4-49); AST 28 U/L (17-59); African American GFR (CKD) >90 (>60 ml/min/1.73 sqM); Albumin 4.7 g/dL (3.5-5.0); Alkaline Phosphatase 100 U/L (38-126); Anion Gap 14 mmol/L; Blood Urea Nitrogen 32 mg/dL (9-20); Calcium 10.4 mg/dL (8.4-10.2); Carbon Dioxide 23 mmol/L (22-30); Chloride 99 mmol/L (98-107); Glucose 300 mg/dL (74-99); Magnesium 2.2 mg/dL (1.6-2.3); Non-African American GFR(CKD) >90 (>60 ml/min/1.73 sqM); Potassium 5.4 mmol/L (3.5-5.1); Sodium 136 mmol/L (137-145); Total Bilirubin 0.6 mg/dL (0.2-1.3)
[2021-02-01 18:49] LABS: INR 0.9 (<1.2); Prothrombin Time 9.9 sec (9.0-12.0)
[2021-02-01 18:58] LABS: Partial Thromboplastin Time 15.8 sec (22.0-30.0)
[2021-02-01 19:02] LABS: D-Dimer 1.27 mg/L FEU (<0.60)
[2021-02-01] MEDS ORDERED: SODIUM CHLORIDE 0.9% 500 ML 500 ML IV STA (19:04)
--- NOTE | 2021-02-01 20:05 | CT ---
EXAMINATION TYPE: CT angio chest DATE OF EXAM: 02/01/2021 COMPARISON: 09/24/2020 HISTORY: Chest pain. CT DLP: 370.1 mGycm Automated exposure control for dose reduction was used. CONTRAST: Performed with IV Contrast, patient injected with 75ml mL of Isovue 370. There are 3-D post processed images. There is mild subsegmental atelectasis at the lung bases. There is no pleural effusion. There is no p ericardial effusion. There are no hilar masses. There is no mediastinal adenopathy. Thoracic aorta is intact. There is no aneurysm or dissection. Thoracic vertebra have normal spacing and alignment. There is no compression fracture. Sternum is int act. The ribs appear intact. There is normal contrast opacification of the pulmonary arteries. There are no filling defects. IMPRESSION: Negative exam. No evidence of pulmonary embolism. No suspicious pulmonary mass. No adverse change.
[2021-02-01] MEDS ORDERED: NITROGLYCERIN SL TABS 0.4 MG TAB SUBLINGUAL PRN ×2 (20:31→22:32)
[2021-02-01] MEDS ORDERED: HEPARIN SODIUM 1,000 UN/ML (10ML VL) IV ONE (22:58)
[2021-02-01] MEDS ORDERED: HEPARIN SODIUM 1,000 UN/ML (10ML VL) IV PRN (22:58)
[2021-02-01] MEDS ORDERED: HEPARIN SOD,PORK IN 0.45% NACL 25,000 UNIT in 0.45% NACL 1 250ML.BAG IV SCH (23:00)
[2021-02-01] MEDS: NITROGLYCERIN OINT 1 INCH/GM PACKET TOPICAL SCH (23:43)
[2021-02-02] MEDS: NITROGLYCERIN OINT 1 INCH/GM PACKET TOPICAL SCH ×3 (05:06→17:38)
[2021-02-02 06:25] LABS: INR 0.9 (<1.2); Partial Thromboplastin Time 30.7 sec (22.0-30.0); Prothrombin Time 10.1 sec (9.0-12.0)
[2021-02-02 07:11] LABS: Glucose,Whole Blood 198 mg/dL (75-99)
[2021-02-02 07:20] VITALS: RESP 16
[2021-02-02] MEDS ORDERED: ALPRAZolam 0.25 MG TAB PO PRN (08:00)
[2021-02-02] MEDS ORDERED: ALPRAZolam 0.5 MG TAB PO PRN (08:00)
[2021-02-02] MEDS ORDERED: SODIUM CHLORIDE 0.9% 1,000 ML in EMPTY BAG 1 BAG IV ONE (08:00)
[2021-02-02] MEDS ORDERED: ASPIRIN 325 MG TAB PO STA (08:00)
[2021-02-02] MEDS ORDERED: NITROGLYCERIN SL TABS 0.4 MG TAB SUBLINGUAL PRN ×2 (08:00→10:13)
[2021-02-02] MEDS ORDERED: ATORVASTATIN 80 MG TAB PO STA (08:00)
[2021-02-02] MEDS: INSULIN ASPART (NovoLOG) 100 UNIT/ML VIAL SQ SCH ×4 (08:25→20:37)
[2021-02-02] MEDS: NON FORMULARY DRUG (Canagliflozin [Invokana] 300 MG Tablet) PO SCH (08:26)
[2021-02-02] MEDS: ASPIRIN 81 MG PO SCH (08:26)
[2021-02-02] MEDS: ISOSORBIDE MONONITRATE ER 30 MG TAB.ER.24H PO SCH (08:32)
[2021-02-02] MEDS: PANTOPRAZOLE 40 MG TABLET PO SCH (08:32)
[2021-02-02] MEDS: ATORVASTATIN 80 MG TAB PO SCH (08:32)
[2021-02-02] MEDS: METOPROLOL TARTRATE 25 MG TAB PO SCH (08:32)
[2021-02-02] MEDS ORDERED: IV FLUID CONTINUATION 1,000 ML IV ONE (08:45)
[2021-02-02] MEDS ORDERED: ASPIRIN 325 MG TAB PO SCH (09:00)
[2021-02-02] MEDS ORDERED: lisinopriL 5 MG TAB PO SCH (09:00)
[2021-02-02] MEDS ORDERED: LIDOCAINE 1% INJ 10MG/ML (20 ML MDV) ONE (09:01)
[2021-02-02] MEDS ORDERED: VERAPAMIL 2.5 MG/ML 2 ML AMP ONE (09:01)
[2021-02-02 09:27] LABS: Basophils # (A) 0.04 X 10*3/uL (0.00-0.10); Basophils % (A) 0.5 %; Eosinophils # (A) 0.09 X 10*3/uL (0.04-0.35); Eosinophils % (A) 1.1 %; HCT 43.3 % (39.6-50.0); Lymphocytes # (A) 1.84 X 10*3/uL (0.90-5.00); Lymphocytes % (A) 22.2 %; MCH 30.6 pg (27.0-32.0); MCHC 32.3 g/dL (32.0-37.0); MCV 94.7 fL (80.0-97.0); Mean Platelet Volume 10.7 fL (9.5-12.2); Monocytes # (A) 0.72 X 10*3/uL (0.20-1.00); Monocytes % (A) 8.7 %; Neutrophils # (A) 5.57 X 10*3/uL (1.80-7.70); Neutrophils % (A) 67.3 %; Platelet Count 245 X 10*3/uL (140-440); RBC 4.57 X 10*6/uL (4.40-5.60); WBC 8.28 X 10*3/uL (4.50-10.00)
[2021-02-02] MEDS ORDERED: MIDAZOLAM 2 MG/2 ML VIAL IV ONE (09:30)
[2021-02-02] MEDS ORDERED: LIDOCAINE 1% INJ 10MG/ML (20 ML MDV) SQ ONE (09:33)
[2021-02-02] MEDS ORDERED: VERAPAMIL SYRINGE (5 MG/10 ML) INTRAARTER ONE ×2 (09:34→10:06)
[2021-02-02] MEDS: HEPARIN SODIUM 1,000 UN/ML (10ML VL) IV ONE ×2 (09:35→10:08)
[2021-02-02 09:45] LABS: Chol/HDL Ratio 3.96; LDL Cholesterol,Calculated 57.2 mg/dL (0.0-131.0); VLDL Calculation 25.8 mg/dL (5.00-40.00)
[2021-02-02] MEDS ORDERED: NITROGLYCERIN 1000MCG/10ML SYRINGE INTRACORON ONE (10:02)
[2021-02-02] MEDS ORDERED: CLOPIDOGREL 75 MG TAB ONE (10:03)
[2021-02-02] MEDS ORDERED: IOPAMIDOL-370 100ML BTL INJ ONE ×2 (10:05→10:07)
[2021-02-02] MEDS ORDERED: CLOPIDOGREL 75 MG TAB PO ONE (10:05)
[2021-02-02] MEDS ORDERED: MAG HYDROX/AL HYDROX/SIMETH 30 ML CUP PO PRN (10:13)
[2021-02-02] MEDS ORDERED: RX INFO: IV CONTRAST WAS GIVEN 1 EACH MISC MISCELLANE PRN (10:13)
[2021-02-02] MEDS ORDERED: ZOLPIDEM 5 MG TAB PO PRN (10:13)
[2021-02-02] MEDS ORDERED: ATROPINE SULFATE 0.1 MG/ML 10ML SYRINGE IV PRN (10:13)
--- NOTE | 2021-02-02 10:18 | CONS ---
CONSULTATION This is a 70-year-old gentleman with a known history of type 2 diabetes, hypertension, hyperlipidemia, and CAD with prior stenting of LAD and diagonal. The last stenting was performed in March 2018 and this was a major diagonal branch. Prior to that he had an LAD stenting as well. He sees Dr. Perales in the office and Dr. Shoemaker performed his last PCI, which was a major first diagonal branch of LAD with a 2.5 caliber 15 mm Xience stent. 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 Came into the hospital. By the time he arrived pain was better. His initial troponin on arrival was 0.016, but subsequently went up. He feels better this morning, but the troponin is rising. EKG revealed no acute changes. He still has mild nondescript chest tightness. D-dimer is also elevated. Renal function is normal. At the time of my evaluation he is reasonably comfortable. PAST MEDICAL HISTORY: 1. Type 2 diabetes mellitus. 2. Hypertension. 3. Hyperlipidemia. 4. CAD with multivessel stenting involving the LAD and diagonal. The last stent was of the first diagonal in March 2018. MEDICATIONS: Medications at home include sildenafil 50 mg p.r.n., which he has not taken lately, metformin 1000 mg daily, Prinivil 5 mg daily, metoprolol tartrate 25 mg daily, Invokana 300 mg daily, Lipitor 80 mg daily, aspirin 81 mg daily. ALLERGIES: PENICILLIN. PHYSICAL EXAMINATION: VITAL SIGNS: On examination, blood pressure is 124/70, pulse rate is 68 per minute and regular. HEENT: Unremarkable. Fundus was not examined by me. NECK: Supple. No JVD. I do not hear a carotid bruit. There is no thyromegaly. HEART: Exam reveals S1, S2 heard normally. No significant murmur. LUNGS: Clear. ABDOMEN: Soft, nontender. EXTREMITIES: Lower extremity revealed normal pulses. No edema. CENTRAL NERVOUS SYSTEM: Normal. EKG revealed sinus mechanism, no acute changes. ASSESSMENT: 1. Rising troponin indicative of non-ST elevation myocardial infarction. 2. Hypertension. 3. Hyperlipidemia. 4. Type 2 diabetes mellitus. RECOMMENDATIONS: I am recommending coronary angiography. Based on intervention, further recommendations. Risks, benefits, options, rationale explained. Patient understands all details and wishes to proceed with the procedure. MMODL / IJN: [id number] /
--- NOTE | 2021-02-02 10:52 | CC ---
CARDIAC CATHETERIZATION REPORT DATE OF SERVICE: 02/02/2021. PROCEDURE PERFORMED: 1. Left heart catheterization and coronary angiography. 2. PTCA and stenting of the major diagonal branch of the mid LAD. PERFORMED BY: Dr. Steve Harp. Moderate conscious sedation time was 38 minutes. Patient was administered Versed. Oxygen saturation, hemodynamics and EKG were monitored closely. CLINICAL INFORMATION: Mr. Lex Garcia is a 70-year-old gentleman with a known history of type 2 diabetes, hypertension, hyperlipidemia, who also has CAD, underwent stenting of LAD with a bifurcation lesion to the diagonal as well in the past. He also had has a previous intervention of the circumflex marginal as well in the past in 2017. This time, he comes into the hospital with chest pain radiating to the left arm and neck with diaphoresis and troponin elevation suggestive of non-ST elevation MT without significant ST-segment changes. I advised cardiac catheterization after due discussion with the patient regarding risks, benefits, and options. He understood all details and wished to proceed with the procedure. PROCEDURE NOTE: Under local anesthesia and strict aseptic precautions, a 6-Armenian introducer was placed in the right radial artery. I used a JL3.5 and JR4 catheter. With this, I performed coronary angiography and the same right catheter was used to check LV pressure but LV gram was not performed. The angiograms were reviewed and I noted that he had a significant lesion in the major diagonal branch between the 2 previously placed stents. He had a proximal ostial and proximal diagonal stent and another mid stent. Between the 2, there is area of 80% with haziness and this seems to be the culprit lesion. There was also a significant lesion in the PLV branch, which was a small caliber PLV branch. He was advised intervention of the diagonal that was performed in the same setting. PCI PROCEDURE DETAILS: Patient was administered additional heparin. Initially ACT was over 300. A repeat ACT was 230. I therefore gave additional 1500 units of heparin. He received 600 mg of Plavix. I used a JL3.5 guide catheter and a Whisper wire. With this, I crossed the lesion. I deployed a 2.5 caliber 8 mm stent in the diagonal branch between the 2 previous stents. This was deployed at 13 atmospheres. I then post dilated this with a 2.75 caliber NC Trek balloon at 14 atmospheres. The same balloon was used to dilate the proximal stent as well. Subsequently, patient did not have significant chest discomfort or EKG changes. Excellent angiographic result was achieved without complication. I took the catheter and the wire out. The sheath was taken out and TR band applied as per protocol. The saturation of the fingers of the right hand was 92%. Excellent angiographic result without complication was achieved. CARDIAC CATHETERIZATION FINDINGS: Left ventricular end-diastolic pressure was 12 mmHg. There was no gradient across aortic valve. RIGHT CORONARY ARTERY: Technically a dominant vessel. There is no significant disease. Minor irregularities. Mild calcification. Distally bifurcates into a larger PDA and smaller PLV. The PLV in the in the mid to distal portion is small in caliber about 1.5 mm or so and has 80% stenosis. There is limited amount of myocardium after the stenotic area. PDA and the distal RCA are free of significant disease. There is about a 40% narrowing in the distal RCA, but no significant lesion. The PLV appears to be a progression of disease, but the vessel is small in caliber and distribution. LEFT MAIN CORONARY ARTERY: Short, patent vessel, free of significant disease. Bifurcates into LAD and circumflex. LEFT ANTERIOR DESCENDING CORONARY ARTERY: Good caliber vessel extends along the anterior wall. There is a stent in the LAD as well as the diagonal in a bifurcation fashion. The mid diagonal also has a stent. Between the ostial diagonal and the mid diagonal, there is an area of haziness with 80% narrowing. This appears to be the culprit lesion. LAD has minor irregularities. No other significant disease. LEFT POSTERIOR CIRCUMFLEX CORONARY ARTERY. Technically a nondominant vessel gives off a good-sized obtuse marginal branch which has a patent stent in it with good flow. Then the vessel continues in the AV groove and gives off a left atrial circumflex. The AV groove branches has some narrowing it and appears to be jailed with the stent, but the flow is good. FINAL IMPRESSION: This patient has an 80% mid diagonal lesion which appears to be the culprit lesion. There is 80% mid PLV lesion, but PLV is small less than 1.5 mm. The LAD stent and the proximal ostial diagonal stent is patent circumflex marginal stent is patent. RCA and PDA branch of RCA have no significant disease. Filling pressures are normal. There was no gradient. RECOMMENDATIONS: I recommended PCI of the major diagonal branch and proceeded to perform this in the same setting. MMODL / IJN: [id number] /
[2021-02-02] MEDS: SODIUM CHLORIDE 0.9% 1,000 ML IV SCH (11:04)
[2021-02-02 11:58] LABS: Glucose,Whole Blood 178 mg/dL (75-99)
[2021-02-02 13:22] LABS: African American GFR (CKD) >90 (>60 ml/min/1.73 sqM); Anion Gap 8 mmol/L; Blood Urea Nitrogen 29 mg/dL (9-20); Carbon Dioxide 27 mmol/L (22-30); Chloride 103 mmol/L (98-107); Glucose 224 mg/dL (74-99); Non-African American GFR(CKD) 84 (>60 ml/min/1.73 sqM); Potassium 4.7 mmol/L (3.5-5.1); Sodium 138 mmol/L (137-145)
[2021-02-02] MEDS ORDERED: TEMAZEPAM 15 MG CAP PO PRN (14:33)
[2021-02-02] MEDS ORDERED: HYDROcodone/APAP 5-325MG 1 EACH TAB PO PRN (14:33)
[2021-02-02] MEDS: INSULIN DETEMIR (LEVEMIR) 100 UNIT/ML SYR SQ SCH (14:55)
[2021-02-02 17:17] LABS: Glucose,Whole Blood 309 mg/dL (75-99)
--- NOTE | 2021-02-02 18:06 | HP ---
HISTORY AND PHYSICAL CHIEF COMPLAINT: Chest pain. HISTORY OF PRESENT ILLNESS: This 70-year-old gentleman with a past medical history of multiple medical problems including CAD, history of diabetes, GERD, hypertension, hyperlipidemia, history of myocardial infarction, history of CAD/stent being followed by Dr. Francy Hermosillo in the outpatient setting was complaining of chest pain which was felt in the anterior part of chest and also patient had aching sensation of the left arm and as well as of constricting band around the neck area which is very similar to the previous cardiac episodes according to him. The patient was found to have some ST-T changes in the EKG and a CT angio of the chest was negative with no evidence of pulmonary embolism. The troponin is found to be elevated up to 3.[address] segment elevation myocardial infarction. The patient underwent cardiac catheterization, and after catheterization, coronary angiography and PTCA and stenting of the major diagonal branches of mid LAD by Dr. Steve Harp through a radial approach. Patient tolerated the procedure. Patient being closely monitored. There is no history of chest pain, palpitation, headache, loss of consciousness, seizures at this time. PAST MEDICAL HISTORY: History of CAD, history of diabetes, GERD, hypertension, hyperlipidemia, myocardial infarction. MEDICATIONS: Home medications are: Sildenafil 50 mg daily p.r.n. and Nitrostat, Tarceva, Trulicity, aspirin, metformin, Prinivil, omeprazole, metoprolol, Imdur, Invokana, Lipitor. ALLERGIES: PENICILLIN. FAMILY HISTORY: History of CAD/CABG. SOCIAL HISTORY: Previous history of smoking. Occasional alcohol intake. REVIEW OF SYSTEMS: ENT: No diminished vision. No diminished hearing. CARDIOVASCULAR SYSTEM: As mentioned earlier. RESPIRATORY: As mentioned earlier. GI no nausea, vomiting. No diarrhea. : No dysuria. NERVOUS SYSTEM: No numbness or weakness. ALLERGY/IMMUNOLOGY: No asthma or hayfever. MUSCULOSKELETAL: As mentioned earlier. HEMATOLOGY/ONCOLOGY: No history of anemia. ENDOCRINE: As mentioned earlier. CONSTITUTIONAL: As mentioned earlier. DERMATOLOGY: Negative. RHEUMATOLOGY: Negative. PSYCHIATRY as mentioned earlier. PHYSICAL EXAMINATION: Alert and oriented times three. Pulse 72, blood pressure 90/45, respirations 16, temperature 97.4, pulse ox 94% on room air. HEENT: Conjunctivae normal. NECK: No JVD. CARDIOVASCULAR: S1, S2 muffled. RESPIRATION: Breath sounds diminished in the bases. A few scattered rhonchi. ABDOMEN: Soft, nontender. No mass palpable. LEGS: No edema. No swelling. NERVOUS SYSTEM: Higher functions as mentioned earlier. Moves all 4 limbs. No focal motor or sensory deficits. LYMPHATICS: No lymph nodes palpable in the neck, axilla or groin. SKIN: No ulcer, rash or bleeding. JOINTS: No active deforming arthropathy. LABORATORY DATA: CBC within normal limits. BUN is 29. Troponin is noted. ASSESSMENT: 1. Chest pain possible acute non ST-segment elevation myocardial infarction infarction. Status post cardiac catheterization, PTCA and stenting of the major diagonal branch of the mid LAD. 2. Diabetes mellitus type 2. 3. History of coronary artery disease/ stent. 4. Gastroesophageal reflux disease. 5. Hypertension. 6. Hyperlipidemia. 7. History of myocardial infarction. 8. History of adenoidectomy. 9. History of tonsillectomy. 10.FULL CODE. RECOMMENDATIONS AND DISCUSSION: In this 70-year-old gentleman who presented with multiple complex medical issues, we will monitor the patient closely, continue the current medications, management and symptomatic treatment. Continue with dual antiplatelet treatment. Resume the home medication. Monitor blood sugars closely. Otherwise, closely follow with Cardiology. Prognosis guarded because of multiple complex medical issues. Further recommendations to follow. A copy of dictation being forwarded to Dr. Francy Hermosillo who is the primary physician. Dr. Castrejon will follow tomorrow. MMODL / IJN: [id number] /
[2021-02-02 19:59] LABS: Glucose,Whole Blood 405 mg/dL (75-99)
[2021-02-02 20:43] LABS: Glucose,Whole Blood 346 mg/dL (75-99)
[2021-02-03] MEDS: SODIUM CHLORIDE 0.9% 1,000 ML IV SCH (00:21)
[2021-02-03] MEDS: NITROGLYCERIN OINT 1 INCH/GM PACKET TOPICAL SCH ×2 (00:26→05:39)
[2021-02-03] MEDS: NON FORMULARY DRUG (Canagliflozin [Invokana] 300 MG Tablet) PO SCH (06:55)
[2021-02-03] MEDS ORDERED: HEPARIN SODIUM,PORCINE 10,000 UNIT in SODIUM CHLORIDE 0.9% 1,000 ML IRRIGATION PRN (07:00)
[2021-02-03] MEDS ORDERED: HEPARIN SODIUM,PORCINE 2,500 UNIT in SODIUM CHLORIDE 0.9% 250 ML IRRIGATION PRN (07:00)
[2021-02-03 07:19] LABS: Glucose,Whole Blood 119 mg/dL (75-99)
[2021-02-03 07:23] VITALS: BP 111/62; PULSE 66; TEMP 97.6
[2021-02-03] MEDS: INSULIN ASPART (NovoLOG) 100 UNIT/ML VIAL SQ SCH (08:22)
[2021-02-03] MEDS: INSULIN DETEMIR (LEVEMIR) 100 UNIT/ML SYR SQ SCH (08:31)
[2021-02-03] MEDS: ISOSORBIDE MONONITRATE ER 30 MG TAB.ER.24H PO SCH (08:31)
[2021-02-03] MEDS: ATORVASTATIN 80 MG TAB PO SCH (08:31)
[2021-02-03] MEDS: PANTOPRAZOLE 40 MG TABLET PO SCH (08:31)
[2021-02-03] MEDS: ASPIRIN 81 MG PO SCH (08:32)
[2021-02-03] MEDS: METOPROLOL TARTRATE 25 MG TAB PO SCH (08:32)
[2021-02-03] MEDS ORDERED: CLOPIDOGREL 75 MG TAB PO SCH (09:00)
[2021-02-03 10:22] LABS: Basophils # (A) 0.04 X 10*3/uL (0.00-0.10); Basophils % (A) 0.5 %; Eosinophils # (A) 0.14 X 10*3/uL (0.04-0.35); Eosinophils % (A) 1.8 %; HCT 40.9 % (39.6-50.0); Lymphocytes # (A) 1.75 X 10*3/uL (0.90-5.00); Lymphocytes % (A) 22.8 %; MCH 30.3 pg (27.0-32.0); MCHC 31.8 g/dL (32.0-37.0); MCV 95.3 fL (80.0-97.0); Mean Platelet Volume 10.2 fL (9.5-12.2); Monocytes # (A) 0.74 X 10*3/uL (0.20-1.00); Monocytes % (A) 9.7 %; Neutrophils # (A) 4.98 X 10*3/uL (1.80-7.70); Neutrophils % (A) 65.1 %; Platelet Count 231 X 10*3/uL (140-440); RBC 4.29 X 10*6/uL (4.40-5.60); RDW 13.2 % (11.5-14.5); WBC 7.66 X 10*3/uL (4.50-10.00)
--- NOTE | 2021-02-03 10:28 | P.PN ---
Subjective This is a pleasant 70-year-old male past medical history significant for diabetes mellitus, hypertension, dyslipidemia and coronary artery disease. He underwent cardiac catheterization yesterday revealing an 80% lesion of the mid diagonal branch, 80% mid PLV lesion, previously stented LAD and ostial diagonal are patent, review of circumflex stent is patent, RCA with no significant disease. He underwent successful PCI of the major diagonal branch. He is seen and examined sitting up in bed in no acute distress. He has been up ambulating this morning and is getting ready to take a shower. He denies any symptoms of chest discomfort, shortness of breath, dizziness or palpitations. Blood pressure 111/62 heart rate 66 afebrile maintaining oxygen saturation on room air. Currently maintained on aspirin 81 mg daily, atorvastatin 80 mg daily, Plavix 75 mg daily, Imdur 30 mg daily and metoprolol 25 mg daily. GENERAL: Well-appearing, well-nourished and in no acute distress. NECK: Supple without JVD or thyromegaly. LUNGS: Breath sounds clear to auscultation bilaterally. Respiration equal and unlabored. No wheezes, rales or rhonchi. HEART: Regular rate and rhythm without murmurs, rubs or gallops. S1 and S2 heard. EXTREMITIES: Normal range of motion, no edema. No clubbing or cyanosis. Peripheral pulses intact. Right radial access site soft, nontender with no ecchymosis, hematoma or bleeding. ASSESSMENT NSTEMI Hypertension Dyslipidemia Diabetes mellitus Previous history of coronary artery disease status post PCI Former nicotine dependence PLAN Obtain limited echo to assess LV function. Continue beta blockers, statin and dual anti-platelet therapy. No SIENA/ARB due to low baseline blood pressure. Follow up with Dr. Perales in 1-week. Nurse Practitioner note has been reviewed, I agree with a documented findings and plan of care. Patient was seen and examined. Objective - Vital Signs Vital signs: Vital Signs Temp 97.6 F 02/03/21 06:55 Pulse 66 02/03/21 06:55 Resp 16 02/03/21 06:55 BP 111/62 02/03/21 06:55 Pulse Ox 99 02/03/21 06:55 Intake & Output 02/02/21 02/03/21 02/03/21 18:59 06:59 18:59 Intake Total 1145 240 Balance 1145 240 Intake: IV 400 Intake, IV Titration 225 Amount Sodium Chloride 0.9% 1, 225 000 ml @ 75 mls/hr IV . [id number] [facility] Rx#:[id number] Oral 240 Blood Product 520 Other: Voiding Method Toilet Toilet Toilet # Voids 2 2 1 - Labs CBC & Chem 7: 02/02/21 05:18 02/02/21 05:18 Labs: Abnormal Lab Results - Last 24 Hours (Table) 02/02/21 02/02/21 02/02/21 Range/Units 05:18 11:52 17:16 BUN 29 H (9-20) mg/dL Glucose 224 H (74-99) mg/dL POC Glucose (mg/dL) 178 H 309 H (75-99) mg/dL 02/02/21 02/02/21 02/03/21 Range/Units 19:58 20:42 06:54 BUN (9-20) mg/dL Glucose (74-99) mg/dL POC Glucose (mg/dL) 405 H 346 H 119 H (75-99) mg/dL
[2021-02-03 10:30] VITALS: BMI 25.8
[2021-02-03 10:48] LABS: African American GFR (CKD) 101.4 (60.0-200.0); Anion Gap 10.2 mmol/L (4.00-12.00); BUN/Creat Ratio 27.78 Ratio (12.00-20.00); Calcium 9.2 mg/dL (8.7-10.3); Carbon Dioxide 24.8 mmol/L (21.6-31.8); Non-African American GFR(CKD) 87.5 (60.0-200.0); Potassium 4.5 mmol/L (3.5-5.5)
== END 2021-02-03 10:38 | disposition home or self-care (01) ==
LOC: EC 17:33 → 6NMEDSUR 20:31
PROVIDERS: ADMIT Family Medicine; ATTEND Family Medicine
DX: I21.4 Non-ST elevation (NSTEMI) myocardial infarction (principal); I10 Essential (primary) hypertension; E78.5 Hyperlipidemia, unspecified; I25.10 Atherosclerotic heart disease of native coronary artery without angina pectoris; E11.9 Type 2 diabetes mellitus without complications; Z20.822 Contact with and (suspected) exposure to COVID-19; R61 Generalized hyperhidrosis; R01.1 Cardiac murmur, unspecified; I25.2 Old myocardial infarction; H91.92 Unspecified hearing loss, left ear; G54.6 Phantom limb syndrome with pain; K21.9 Gastro-esophageal reflux disease without esophagitis; Z88.0 Allergy status to penicillin; Z79.899 Other long term (current) drug therapy; Z79.82 Long term (current) use of aspirin; Z79.4 Long term (current) use of insulin; Z79.02 Long term (current) use of antithrombotics/antiplatelets; Z87.891 Personal history of nicotine dependence; Z86.010 Personal history of colon polyps; Z87.19 Personal history of other diseases of the digestive system; Z82.49 Family history of ischemic heart disease and other diseases of the circulatory system; Z80.0 Family history of malignant neoplasm of digestive organs
CPT/HCPCS: 93458; 96365; 96366; 93005 ×3; 99285; 36415; 85379; 80061; 80053; 80048 ×2; 83735; 84484 ×2; 85025 ×3; 85610 ×2; 85730 ×2; 87635; 71046; 71275; G0378 ×3; C9600; C1769; C1887; C1894; C1725; C1874; J2250; J2001; J1644 ×2; Q9967 ×2

== ENCOUNTER 2022-02-04 07:31 | Day surgery (SDC) | payer MEDICARE, BC ==
[2022-02-03 12:52] VITALS: BMI 23.4
[2022-02-04 08:13] VITALS: RESP 16; TEMP 97.3
[2022-02-04] MEDS ORDERED: LIDOCAINE 1% (10MG/ML) FOR IV START INTRADERMA ONE (08:13)
[2022-02-04 08:25] LABS: Glucose,Whole Blood 112 mg/dL (75-99)
--- NOTE | 2022-02-04 08:32 | P.GSHP ---
History of Present Illness H&P Date: 02/04/22 Chief Complaint: GI bleed This a 71-year-old male with history of rectal bleeding. Patient presents today for colonoscopy Past Medical History Past Medical History: Coronary Artery Disease (CAD), Chest Pain / Angina, Diabetes Mellitus, GERD/Reflux, Hyperlipidemia, Hypertension, Myocardial Infarction (GA), Skin Disorder Additional Past Medical History / Comment(s): NIDDM, cardiac murmur, 2 previous MIs, L ear deafness, benign colon polyps, ROSACEA, Last Myocardial Infarction Date:: 04/22/16 History of Any Multi-Drug Resistant Organisms: None Reported Past Surgical History: Adenoidectomy, Ear Surgery, Heart Catheterization, Heart Catheterization With Stent, Orthopedic Surgery, Tonsillectomy Additional Past Surgical History / Comment(s): 01/28/16 PTCA and stent and April 2016 and in June 2017, L ear mastoid surgery, colonoscopies/polypectomies, L hand index finger amputated, has phantom pain at times. Past Anesthesia/Blood Transfusion Reactions: No Reported Reaction Date of Last Stent Placement:: 06/28/17 Smoking Status: Former smoker - Past Family History Father Family Medical History: Cancer, Coronary Artery Disease (CAD) Additional Family Medical History / Comment(s): Father had CABG prior to age 50yrs. He of esophageal cancer at the age of 79 yrs. Mother Family Medical History: Congestive Heart Failure (CHF), Osteoarthritis (OA) Additional Family Medical History / Comment(s): Mother of CHF at 86yrs of age. Medications and Allergies Home Medications Medication Instructions Recorded Confirmed Type Metoprolol Tartrate 25 mg PO DAILY 06/18/17 02/03/22 History metFORMIN HCL [Glucophage] 1,000 mg PO DAILY 06/18/17 02/03/22 History Omeprazole 20 mg PO DAILY 06/25/17 02/03/22 History Atorvastatin [Lipitor] 80 mg PO DAILY 03/03/18 02/03/22 History Insulin Degludec [Tresiba 22 units SQ DAILY 06/14/18 02/03/22 History Flextouch U-100 Pen] Nitroglycerin Sl Tabs [Nitrostat] 0.4 mg SL Q5M PRN 09/24/20 02/03/22 History Aspirin 81 mg PO DAILY chew 09/25/20 02/03/22 Rx Isosorbide Mononitrate ER [Imdur] 30 mg PO DAILY 02/01/21 02/03/22 History Clopidogrel [Plavix] 75 mg PO DAILY #90 tab 02/03/21 02/03/22 Rx Ascorbic Acid [Vitamin C] 250 mg PO DAILY 02/03/22 02/03/22 History Cholecalciferol [Vitamin D3 (25 50 mcg PO DAILY 02/03/22 02/03/22 History Mcg = 1000 Iu)] Cyanocobalamin (Vitamin B-12) 500 mcg PO DAILY 02/03/22 02/03/22 History [Vitamin B-12] Empagliflozin [Jardiance] 25 mg PO DAILY 02/03/22 02/03/22 History Multivit-Min/Folic/Vit K/Lycop 1 each PO DAILY 02/03/22 02/03/22 History [Men's Multivitamin Tablet] Semaglutide [Ozempic] 0.4 ml SQ FERNANDEZ 02/03/22 02/03/22 History Tadalafil [Cialis] 20 mg PO DAILY PRN 02/03/22 02/03/22 History Ubidecarenone [Co Q-10] 200 mg PO DAILY 02/03/22 02/03/22 History Vitality Complex 1 tab PO DAILY 02/03/22 History lisinopriL [Zestril] 2.5 mg PO DAILY 02/03/22 02/03/22 History Allergies Allergy/AdvReac Type Severity Reaction Status Date / Time Penicillins Allergy Unknown Rash/Hives Verified 02/04/22 07:55 Surgical - Exam Vital Signs Temp Pulse Resp BP Pulse Ox 97.3 F L 74 16 111/64 96 02/04/22 08:12 02/04/22 08:12 02/04/22 08:12 02/04/22 08:12 02/04/22 08:12 - General well developed, well nourished, no distress - Eyes PERRL - ENT normal pinna - Neck no masses - Respiratory normal expansion - Cardiovascular Rhythm: regular - Abdomen Abdomen: soft, non tender Results - Labs Abnormal Lab Results - Last 24 Hours (Table) 02/04/22 Range/Units 08:17 POC Glucose (mg/dL) 112 H (75-99) mg/dL Assessment and Plan Assessment: GI bleed. We'll perform colonoscopy.
[2022-02-04] MEDS ORDERED: PROPOFOL 10 MG/ML 20 ML VIAL IV ONE (08:33)
--- NOTE | 2022-02-04 08:51 | P.OP ---
Date of Procedure: 02/04/22 Preoperative Diagnosis: Hemorrhoids, GI bleed Postoperative Diagnosis: Internal and external hemorrhoids Mild diverticulosis Procedure(s) Performed: Colonoscopy Anesthesia: MAC Surgeon: Isiah Camarena Pathology: none sent Condition: stable Disposition: PACU Description of Procedure: The patient's placed on the endoscopy table in the lateral position. He received IV sedation. Digital rectal exam was performed. This revealed internal and external hemorrhoids. The flexible colonoscope was then placed patient anus passed throughout the entire colon. The ileocecal valve was visualized. The cecum, ascending and transverse colon appeared normal. In the descending; there is mild diverticulosis. The scope was brought back the rectum and this appeared normal. Scope withdrawn through the anus and internal/external hemorrhoids are noted. His presumed patient may have had bleeding from hemorrhoids in the past.
[2022-02-04 09:19] VITALS: BP 98/50; PULSE 65
== END 2022-02-04 09:58 | disposition home or self-care (01) ==
LOC: ORWHC2ENDO 07:31
PROVIDERS: ATTEND Surgery
DX: K64.8 Other hemorrhoids (principal); K62.5 Hemorrhage of anus and rectum; K64.4 Residual hemorrhoidal skin tags; K21.9 Gastro-esophageal reflux disease without esophagitis; E11.9 Type 2 diabetes mellitus without complications; E78.5 Hyperlipidemia, unspecified; I10 Essential (primary) hypertension; I25.10 Atherosclerotic heart disease of native coronary artery without angina pectoris; I25.2 Old myocardial infarction; Z79.02 Long term (current) use of antithrombotics/antiplatelets; Z79.4 Long term (current) use of insulin; Z79.82 Long term (current) use of aspirin; Z82.49 Family history of ischemic heart disease and other diseases of the circulatory system; Z87.891 Personal history of nicotine dependence; Z88.0 Allergy status to penicillin; Z95.5 Presence of coronary angioplasty implant and graft
CPT/HCPCS: 45378; J2704

== ENCOUNTER 2023-11-16 16:14 | Emergency (ER) | payer MEDICARE, BC ==
[2023-11-16 16:23] VITALS: TEMP 97.8
--- NOTE | 2023-11-16 16:35 | ED ---
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 Patient is currently having no complaints. No fevers no travel history no sick contacts MD Complaint: chest pain -: days(s) Onset: during rest, during exertion Pain Location: substernal, left chest Pain Radiation: none Severity: moderate Severity scale (1-10): 4 Quality: tightness, aching Consistency: constant Improves With: nothing Worsens With: nothing Anginal Symptoms: sense of impending doom Other Symptoms: palpitations Treatments Prior to Arrival: none - Related Data Home Medications Medication Instructions Recorded Confirmed Metoprolol Tartrate 12.5 mg PO DAILY 06/18/17 11/16/23 metFORMIN HCL [Glucophage] 1,500 mg PO DAILY 06/18/17 11/16/23 Omeprazole 20 mg PO DAILY 06/25/17 11/16/23 Atorvastatin [Lipitor] 40 mg PO HS 03/03/18 11/16/23 Insulin Degludec [Tresiba 40 units SQ DAILY 06/14/18 11/16/23 Flextouch U-100 Pen] Nitroglycerin Sl Tabs [Nitrostat] 0.4 mg SL Q5M PRN 09/24/20 11/16/23 Cholecalciferol [Vitamin D3 (25 50 mcg PO DAILY 02/03/22 11/16/23 Mcg = 1000 Iu)] Cyanocobalamin (Vitamin B-12) 500 mcg PO DAILY 02/03/22 11/16/23 [Vitamin B-12] Empagliflozin [Jardiance] 25 mg PO DAILY 02/03/22 11/16/23 Multivit-Min/Folic/Vit K/Lycop 1 tab PO DAILY 02/03/22 11/16/23 [Men's Multivitamin Tablet] Ubidecarenone [Co Q-10] 200 mg PO DAILY 02/03/22 11/16/23 Vitality Complex 1 tab PO DAILY 02/03/22 11/16/23 lisinopriL [Zestril] 2.5 mg PO DAILY 02/03/22 11/16/23 tadalafiL [Cialis] 20 mg PO DAILY PRN 02/03/22 11/16/23 Aspirin EC [Ecotrin] 325 mg PO DAILY 11/16/23 11/16/23 Semaglutide [Ozempic] 1 mg SQ FERNANDEZ 11/16/23 11/16/23 Vitamin C 240mg Gummy 240 mg PO DAILY 11/16/23 11/16/23 Allergies Allergy/AdvReac Type Severity Reaction Status Date / Time Penicillins Allergy Unknown Rash/Hives Verified 11/16/23 19:08 Review of Systems ROS Statement: Those systems with pertinent positive or pertinent negative responses have been documented in the HPI. ROS Other: All systems not noted in ROS Statement are negative. EKG Findings - EKG Comments: EKG Findings:: EKG is sinus 83 [place] 201 QRS 92 QTc 423 Past Medical History Past Medical History: Coronary Artery Disease (CAD), Chest Pain / Angina, Diabetes Mellitus, GERD/Reflux, Hyperlipidemia, Hypertension, Myocardial Infarction ([place]), Skin Disorder Additional Past Medical History / Comment(s): NIDDM, cardiac murmur, 2 previous MIs, L ear deafness, benign colon polyps, ROSACEA, Last Myocardial Infarction Date:: 04/22/16 History of Any Multi-Drug Resistant Organisms: None Reported Past Surgical History: Adenoidectomy, Ear Surgery, Heart Catheterization, Heart Catheterization With Stent, Orthopedic Surgery, Tonsillectomy Additional Past Surgical History / Comment(s): 01/28/16 PTCA and stent and April 2016 and in June 2017, L ear mastoid surgery, colonoscopies/polypectomies, L hand index finger amputated, has phantom pain at times. Past Anesthesia/Blood Transfusion Reactions: No Reported Reaction Date of Last Stent Placement:: 06/28/17 Past Psychological History: No Psychological Hx Reported Smoking Status: Former smoker - Past Family History Father Family Medical History: Cancer, Coronary Artery Disease (CAD) Additional Family Medical History / Comment(s): Father had CABG prior to age 50yrs. He of esophageal cancer at the age of 79 yrs. Mother Family Medical History: Congestive Heart Failure (CHF), Osteoarthritis (OA) Additional Family Medical History / Comment(s): Mother of CHF at 86yrs of age. General Exam Limitations: no limitations General appearance: alert, in no apparent distress Head exam: Present: atraumatic, normocephalic, normal inspection Eye exam: Present: normal appearance, PERRL, EOMI. Absent: scleral icterus, c onjunctival injection, periorbital swelling ENT exam: Present: normal exam, mucous membranes moist Neck exam: Present: normal inspection. Absent: tenderness, meningismus, lymphadenopathy Respiratory exam: Present: normal lung sounds bilaterally. Absent: respiratory distress, wheezes, rales, rhonchi, stridor Cardiovascular Exam: Present: regular rate, normal rhythm, normal heart sounds. Absent: systolic murmur, diastolic murmur, rubs, gallop, clicks GI/Abdominal exam: Present: soft, normal bowel sounds. Absent: distended, tenderness, guarding, rebound, rigid Extremities exam: Present: normal inspection, full ROM, normal capillary refill. Absent: tenderness, pedal edema, joint swelling, calf tenderness Back exam: Present: normal inspection Neurological exam: Present: alert, oriented X3, CN II-XII intact Psychiatric exam: Present: normal affect, normal mood Skin exam: Present: warm, dry, intact, normal color. Absent: rash Course Vital Signs 11/16/23 11/16/23 11/16/23 16:20 17:22 18:09 Temperature 97.8 F Pulse Rate 89 78 76 Respiratory 16 18 18 Rate Blood Pressure 116/72 114/51 122/54 O2 Sat by Pulse 98 95 96 Oximetry 11/16/23 19:02 Temperature Pulse Rate 76 Respiratory 18 Rate Blood Pressure 104/75 O2 Sat by Pulse 99 Oximetry - Reevaluation(s) Reevaluation #1: 11/16/23 17:13 Medical records reviewed Reevaluation #2: 11/16/23 17:13 Patient remains without chest pain Reevaluation #3: 11/16/23 17:13 Patient informed of results questions answered Studies Chest x-ray is negative for acute disease Reevaluation #4: Was pt. sent in by a medical professional or institution (, PA, SECURITIES AND REAL ESTATE DIRECTOR, urgent care, hospital, or intermediate...) When possible be specific @ -no Did you speak to anyone other than the patient for history (EMS, parent, family, police, friend...)? What history was obtained from this source @ -no Did you review nursing and triage notes (agree or disagree)? Why? @ -agree Are old charts reviewed (outside hosp., previous admission, EMS record, old EKG, old radiological studies, urgent care reports/EKG's, intermediate records)? Report findings @ -yes Differential Diagnosis (chest pain, altered mental status, abdominal pain women, abdominal pain men, vaginal bleeding, weakness, fever, dyspnea, syncope, headache, dizziness, GI bleed, back pain, seizure, CVA, palpatations, mental health, musculoskeletal)? @ -prior EKG interpreted by me (3pts min.). @ -yes X-rays interpreted by me (1pt min.). @ -yes negative for acute disease CT interpreted by me (1pt min.). @ -no U/S interpreted by me (1pt. min.). @ -no What testing was considered but not performed or refused? (CT, X-rays, U/S, labs)? Why? @ -none What meds were considered but not given or refused? Why? @ -none Did you discuss the management of the patient with other professionals (professionals i.e. , PA, SECURITIES AND REAL ESTATE DIRECTOR, lab, RT, psych nurse, social worker delinquency prevention, drift miner, teacher, chief informatics officer, showcase trimmer)? Give summary @ -no Was smoking cessation discussed for >3mins.? @ -no Was critical care preformed (if so, how long)? @ -no Were there social determinants of health that impacted care today? How? (Homelessness, low income, unemployed, alcoholism, drug addiction, transportation, low edu. Level, literacy, decrease access to med. care, senior care, rehab)? @ -none Was there de-escalation of care discussed even if they declined (Discuss DNR or withdrawal of care, Hospice)? DNR status @ -no What co-morbidities impacted this encounter? (DM, HTN, Smoking, COPD, CAD, Cancer, CVA, ARF, Chemo, Hep., AIDS, mental health diagnosis, sleep apnea, morbid obesity)? @ -none Was patient admitted / discharged? Hospital course, mention meds given and route, prescriptions, significant lab abnormalities, going to OR and other pert inent info. @ - 73-year-old male to ER for evaluation of chest pain with known history of CAD. Patient prefers discharge home at this time is he currently feels well and will follow-up with his outpatient web administrator Discharge Undiagnosed new problem with uncertain prognosis? @ -no Drug Therapy requiring intensive monitoring for toxicity (Heparin, Nitro, Insulin, Cardizem)? @ -no Were any procedures done? @ -no Diagnosis/symptom? @ -Chest pain, CAD Acute, or Chronic, or Acute on Chronic? @ -Acute Uncomplicated (without systemic symptoms) or Complicated (systemic symptoms)? @ -Complicated Side effects of treatment? @ -no Exacerbation, Progression, or Severe Exacerbation? @ -exacerbation Poses a threat to life or bodily function? How? (Chest pain, USA, [place], pneumonia, PE, COPD, DKA, ARF, appy, cholecystitis, CVA, Diverticulitis, Homicidal, Suicidal, threat to staff... and all critical care pts) @ -yes with positive chest pain and CAD Reevaluation #5: Differential Chest Pain: Stable Angina, Unstable Angina, STEMI, NSTEMI Aortic Dissection, Pneumothorax, Musculoskeletal, Esophageal Spasm GERD, Cholecystitis, Pancreatitis, Zoster, this is not meant to be an all-inclusive list. Chest Pain MDM - [facility] 73-year-old male to ER for evaluation of chest pain with known history of CAD. Patient prefers discharge home at this time is he currently feels well and will follow-up with his outpatient web administrator Disposition Clinical Impression: Chest pain, CAD (coronary artery disease) Disposition: HOME SELF-CARE Condition: Good Instructions (If sedation given, give patient instructions): Chest Pain (ED) Is patient prescribed a controlled substance at d/c from ED?: No Referrals: Madisyn Wooten NPC [Nurse Practitioner] - 1-2 days Time of Disposition: 19:40
[2023-11-16 17:03] LABS: Basophils % (A) 0 %; Eosinophils % (A) 1 %; HCT 43.2 % (39.0-53.0); HGB 14.3 gm/dL (13.0-17.5); Lymphocytes # (A) 1.1 k/uL (1.0-4.8); Lymphocytes % (A) 12 %; MCH 31.5 pg (25.0-35.0); MCHC 33.1 g/dL (31.0-37.0); MCV 94.9 fL (80.0-100.0); Mean Platelet Volume 7.8; Monocytes # (A) 0.5 k/uL (0-1.0); Monocytes % (A) 5 %; Neutrophils # (A) 7.5 k/uL (1.3-7.7); Neutrophils % (A) 80 %; Platelet Count 239 k/uL (150-450); RBC 4.55 m/uL (4.30-5.90); RDW 12.9 % (11.5-15.5); WBC 9.4 k/uL (3.8-10.6)
[2023-11-16 17:19] LABS: Partial Thromboplastin Time 22.8 sec (22.0-30.0); Prothrombin Time 11.1 sec (10.0-12.5)
[2023-11-16 17:20] LABS: ALT 32 U/L (4-49); AST 29 U/L (17-59); African American GFR (CKD) >90 (>60 ml/min/1.73 sqM); Albumin 4.3 g/dL (3.5-5.0); Alkaline Phosphatase 86 U/L (38-126); Anion Gap 12 mmol/L; Blood Urea Nitrogen 28 mg/dL (9-20); Calcium 9.6 mg/dL (8.4-10.2); Carbon Dioxide 26 mmol/L (22-30); Chloride 103 mmol/L (98-107); Glucose 138 mg/dL (74-99); Lipase 366 U/L (23-300); Magnesium 1.9 mg/dL (1.6-2.3); Non-African American GFR(CKD) 81 (>60 ml/min/1.73 sqM); Potassium 4.6 mmol/L (3.5-5.1); Sodium 141 mmol/L (137-145); Total Bilirubin 0.7 mg/dL (0.2-1.3); Total Protein 6.8 g/dL (6.3-8.2)
[2023-11-16 17:25] VITALS: RESP 18
[2023-11-16 17:27] LABS: NT-Pro-B-Type Natriuretic Pept 76 pg/mL
--- NOTE | 2023-11-16 17:52 | XR ---
EXAMINATION TYPE: XR chest 1V portable DATE OF EXAM: 11/16/2023 5:19 PM CLINICAL INDICATION:Male, 73 years old with history of chest pain; COMPARISON: Chest radiographs from 02/01/2021 TECHNIQUE: XR chest 1V portable Frontal view of the chest. FINDINGS: Lungs/Pleura: There is no evidence of pleural effusion, focal consolidation, or pneumothorax. Pulmonary vascularity: Unremarkable. Heart/mediastinum: Cardiomediastinal silhouette is unremarkable. Musculoskeletal: No acute osseous pathology. Remote appearing left distal clavicle injury suggested. IMPRESSION: No acute cardiopulmonary disease/process.
[2023-11-16 18:26] VITALS: PULSE 76
[2023-11-16 19:28] VITALS: BP 104/75
== END 2023-11-16 20:03 | disposition home or self-care (01) ==
LOC: EC 16:14
DX: R07.89 Other chest pain (principal); I25.10 Atherosclerotic heart disease of native coronary artery without angina pectoris; Z88.0 Allergy status to penicillin; Z87.891 Personal history of nicotine dependence; Z95.5 Presence of coronary angioplasty implant and graft
CPT/HCPCS: 36415; 71045; 80053; 83690; 83735; 83880; 84484; 85025; 85379; 85610; 85730; 93005; 99285

== ENCOUNTER 2024-02-13 23:09 | Inpatient (IN) | payer MEDICARE, BC ==
[2024-02-13] MEDS: ONDANSETRON 4 MG/2 ML VIAL IVP STA (23:47)
[2024-02-13] MEDS: SODIUM CHLORIDE 0.9% 1,000 ML IV ONE (23:48)
--- NOTE | 2024-02-13 23:49 | ED ---
Chest Pain HPI - General Chief Complaint: Chest Pain Stated Complaint: Chest pressure, L arm numbness Time Seen by Provider: 02/13/24 23:15 Source: patient Mode of arrival: wheelchair Limitations: no limitations - History of Present Illness Initial Comments: 73-year-old male with past medical history of coronary artery disease who presents to the emergency department reporting chest pain. States that it has been present since Tuesday. He has any numbness in his left arm. That he has had similar symptoms with previous MIs. He does have 5 stents in his heart and follows with Dr. Vilchis. Today the patient began having nausea with vomiting. He has had some upper respiratory symptoms for which she was recently on azithromycin and prednisone by his primary care. He denies ripping or tearing station to his back. Admits to nasal drainage. No ear pain or sore throat. Does admit to a nonproductive cough. No abdominal pain. No other alleviating, precipitating or modifying factors - Related Data Home Medications Medication Instructions Recorded Confirmed metFORMIN HCL [Glucophage] 1,500 mg PO DAILY 06/18/17 02/14/24 Omeprazole 20 mg PO DAILY 06/25/17 02/14/24 Atorvastatin [Lipitor] 40 mg PO HS 03/03/18 02/14/24 Insulin Degludec [Tresiba 40 units SQ DAILY 06/14/18 02/14/24 Flextouch U-100 Pen] Nitroglycerin Sl Tabs [Nitrostat] 0.4 mg SL Q5M PRN 09/24/20 02/14/24 Cholecalciferol [Vitamin D3 (25 50 mcg PO DAILY 02/03/22 02/14/24 Mcg = 1000 Iu)] Cyanocobalamin (Vitamin B-12) 500 mcg PO DAILY 02/03/22 02/14/24 [Vitamin B-12] Empagliflozin [Jardiance] 25 mg PO DAILY 02/03/22 02/14/24 Multivit-Min/Folic/Vit K/Lycop 1 tab PO DAILY 02/03/22 02/14/24 [Men's Multivitamin Tablet] Ubidecarenone [Co Q-10] 200 mg PO DAILY 02/03/22 02/14/24 Vitality Complex 1 tab PO DAILY 02/03/22 02/14/24 lisinopriL [Zestril] 2.5 mg PO DAILY 02/03/22 02/14/24 tadalafiL [Cialis] 20 mg PO DAILY PRN 02/03/22 02/14/24 Semaglutide [Ozempic] 1 mg SQ FERNANDEZ 11/16/23 02/14/24 Vitamin C 240mg Gummy 240 mg PO DAILY 11/16/23 02/14/24 Previous Rx's Medication Instructions Recorded Aspirin EC [Ecotrin Low Dose] 81 mg PO DAILY #30 tab 02/15/24 Clopidogrel [Plavix] 75 mg PO DAILY #30 tab 02/15/24 Metoprolol Tartrate 25 mg PO DAILY #0 02/15/24 Allergies Allergy/AdvReac Type Severity Reaction Status Date / Time Penicillins Allergy Unknown Rash/Hives Verified 02/14/24 07:18 Review of Systems ROS Statement: Those systems with pertinent positive or pertinent negative responses have been documented in the HPI. ROS Other: All systems not noted in ROS Statement are negative. Past Medical History Past Medical History: Coronary Artery Disease (CAD), Chest Pain / Angina, Diabetes Mellitus, GERD/Reflux, Hyperlipidemia, Hypertension, Myocardial Infarction ([place]), Skin Disorder Additional Past Medical History / Comment(s): NIDDM, cardiac murmur, 2 previous MIs, L ear deafness, benign colon polyps, ROSACEA, Last Myocardial Infarction Date:: 04/22/16 History of Any Multi-Drug Resistant Organisms: None Reported Past Surgical History: Adenoidectomy, Ear Surgery, Heart Catheterization, Heart Catheterization With Stent, Orthopedic Surgery, Tonsillectomy Additional Past Surgical History / Comment(s): 01/28/16 PTCA and stent and April 2016 and in June 2017, L ear mastoid surgery, colonoscopies/polypectomies, L hand index finger amputated, has phantom pain at times. Past Anesthesia/Blood Transfusion Reactions: No Reported Reaction Date of Last Stent Placement:: 06/28/17 Past Psychological History: No Psychological Hx Reported Smoking Status: Former smoker Past Alcohol Use History: None Reported Past Drug Use History: None Reported - Past Family History Father Family Medical History: Cancer, Coronary Artery Disease (CAD) Additional Family Medical History / Comment(s): Father had CABG prior to age 50yrs. He of esophageal cancer at the age of 79 yrs. Mother Family Medical History: Congestive Heart Failure (CHF), Osteoarthritis (OA) Additional Family Medical History / Comment(s): Mother of CHF at 86yrs of age. General Exam Limitations: no limitations General appearance: alert, in no apparent distress Head exam: Present: atraumatic, normocephalic, normal inspection Eye exam: Present: normal appearance, PERRL, EOMI. Absent: scleral icterus, conjunctival injection, periorbital swelling ENT exam: Present: normal exam, mucous membranes moist Neck exam: Present: normal inspection. Absent: tenderness, meningismus, lymphadenopathy Respiratory exam: Present: normal lung sounds bilaterally. Absent: respiratory distress, wheezes, rales, rhonchi, stridor Cardiovascular Exam: Present: regular rate, normal rhythm, normal heart sounds. Absent: systolic murmur, diastolic murmur, rubs, gallop, clicks GI/Abdominal exam: Present: soft, normal bowel sounds. Absent: distended, tenderness, guarding, rebound, rigid Extremities exam: Present: normal inspection, full ROM, normal capillary refill. Absent: tenderness, pedal edema, joint swelling, calf tenderness Back exam: Present: normal inspection Neurological exam: Present: alert, oriented X3, CN II-XII intact Psychiatric exam: Present: normal affect, normal mood Skin exam: Present: warm, dry, intact, normal color. Absent: rash Course Vital Signs 02/13/24 02/14/24 02/14/24 23:10 01:00 03:00 Temperature 97.6 F Pulse Rate 76 89 88 Respiratory 20 20 16 Rate Blood Pressure 123/71 118/77 106/61 O2 Sat by Pulse 100 97 97 Oximetry 02/14/24 02/14/24 02/14/24 03:29 04:48 06:23 Temperature 98.6 F Pulse Rate 81 88 86 Respiratory 20 19 17 Rate Blood Pressure 101/59 95/53 113/68 O2 Sat by Pulse 95 99 99 Oximetry 02/14/24 02/14/24 02/14/24 08:44 11:13 11:53 Temperature 97.9 F 98.1 F Pulse Rate 77 70 68 Respiratory 14 18 16 Rate Blood Pressure 112/68 111/63 119/63 O2 Sat by Pulse 97 98 90 L Oximetry 02/14/24 02/14/24 13:34 14:25 Temperature 98.5 F 98.4 F Pulse Rate 69 71 Respiratory 18 16 Rate Blood Pressure 97/52 111/58 O2 Sat by Pulse 97 97 Oximetry Chest Pain MDM - MDM Was pt. sent in by a medical professional or institution (, LITTLE, DIRECTOR DERMATOLOGY, urgent care, hospital, or penitentiary...) When possible be specific @ -No Did you speak to anyone other than the patient for history (EMS, parent, family, police, friend...)? What history was obtained from this source @ -Spoke with for history Did you review nursing and triage notes (agree or disagree)? Why? @ -I reviewed and agree with nursing and triage notes Were old charts reviewed (outside hosp., previous admission, EMS record, old EKG, old radiological studies, urgent care reports/EKG's, penitentiary records)? Report findings @ -Reviewed patient's previous EKG Differential Diagnosis (chest pain, altered mental status, abdominal pain women, abdominal pain men, vaginal bleeding, weakness, fever, dyspnea, syncope, headache, dizziness, GI bleed, back pain, seizure, CVA, palpatations, mental health, musculoskeletal)? @ -Differential Chest Pain: Stable Angina, Unstable Angina, STEMI, NSTEMI Aortic Dissection, Pneumothorax, Musculoskeletal, Esophageal Spasm GERD, Cholecystitis, Pancreatitis, Zoster, this is not meant to be an all-inclusive list. EKG interpreted by me (3pts min.). @ -yes and demonstrates sinus rhythm with a rate of 86. CT interval 174. QRS 138. QTc of 413. Right bundle branch block. No acute ST segment elevations Repeat EKG done at 7:02 AM demonstrates sinus rhythm with a rate of 81. CT interval 195. QRS no 145. QTc of 431. No acute ST segment elevations or depressions X-rays interpreted by me (1pt min.). @ -Yes and demonstrates no acute process CT interpreted by me (1pt min.). @ -None done U/S interpreted by me (1pt. min.). @ -None done What testing was considered but not performed or refused? (CT, X-rays, U/S, labs)? Why? @ -None What meds were considered but not given or refused? Why? @ -None Did you discuss the management of the patient with other professionals (professionals i.e. , LITTLE, DIRECTOR DERMATOLOGY, lab, RT, psych nurse, social sciences lecturer, dowel setting machine operator, teacher, chief green officer, patient case coordinator)? Give summary @ -I spoke with Dr. Castrejon who agreed to admit the patient Was smoking cessation discussed for >3mins.? @ -No Was critical care preformed (if so, how long)? @ -Yes, 35 minutes for management of NSTEMI Were there social determinants of health that impacted care today? How? (Homelessness, low income, unemployed, alcoholism, drug addiction, transportation, low edu. Level, literacy, decrease access to med. care, [facility], rehab)? @ -No Was there de-escalation of care discussed even if they declined (Discuss DNR or withdrawal of care, Hospice)? DNR status @ -No What co-morbidities impacted this encounter? (DM, HTN, Smoking, COPD, CAD, Cancer, CVA, ARF, Chemo, Hep., AIDS, mental health diagnosis, sleep apnea, morbid obesity)? @ -Coronary artery disease Was patient admitted / discharged? Hospital course, mention meds given and route, prescriptions, significant lab abnormalities, going to OR and other pertinent info. @ -Upon arrival patient was seen and evaluated in room 2. Thorough history and physical exam was performed. IV access was established. He was given antiemetics. He has already taken an aspirin. Twelve-lead EKG demonstrates no acute changes. First troponin is negative. Patient will be admitted for cardiology consultation and trending his troponins. Patient's second troponin does come back positive. He is heparinized. He is given an additional aspirin. Patient made n.p.o. for cardiology evaluation Undiagnosed new problem with uncertain prognosis? @ -No Drug Therapy requiring intensive monitoring for toxicity (Heparin, Nitro, Insulin, Cardizem)? @ -Heparin Were any procedures done? @ -No Diagnosis/symptom? @ -Acute chest pain, NSTEMI Acute, or Chronic, or Acute on Chronic? @ -Acute Uncomplicated (without systemic symptoms) or Complicated (systemic symptoms)? @ -Complicated Side effects of treatment? @ -No Exacerbation, Progression, or Severe Exacerbation? @ -No Poses a threat to life or bodily function? How? (Chest pain, [place], [place], pneumonia, PE, COPD, DKA, ARF, appy, cholecystitis, CVA, Diverticulitis, Homicidal, Suicidal, threat to staff... and all critical care pts) @ -No Disposition Clinical Impression: CAD (coronary artery disease), Chest pain, Vomiting Disposition: ADMITTED IP TO THIS HOSP Condition: Stable Time of Disposition: 01:05 Decision to Admit Reason: Admit from EC Decision Date: 02/14/24 Decision Time: 01:05
[2024-02-14 00:05] LABS: Basophils % (A) 0 %; Eosinophils # (A) 0.1 k/uL (0-0.7); Eosinophils % (A) 1 %; HCT 49.7 % (39.0-53.0); HGB 15.8 gm/dL (13.0-17.5); Lymphocytes # (A) 0.8 k/uL (1.0-4.8); Lymphocytes % (A) 5 %; MCH 30.2 pg (25.0-35.0); MCHC 31.7 g/dL (31.0-37.0); MCV 95.2 fL (80.0-100.0); Mean Platelet Volume 8.1; Monocytes # (A) 0.8 k/uL (0-1.0); Monocytes % (A) 5 %; Neutrophils # (A) 15.8 k/uL (1.3-7.7); Neutrophils % (A) 88 %; Platelet Count 292 k/uL (150-450); RBC 5.22 m/uL (4.30-5.90); RDW 12.9 % (11.5-15.5); WBC 17.9 k/uL (3.8-10.6)
[2024-02-14 00:14] LABS: ALT 47 U/L (4-49); AST 35 U/L (17-59); African American GFR (CKD) >90 (>60 ml/min/1.73 sqM); Albumin 4.9 g/dL (3.5-5.0); Alkaline Phosphatase 103 U/L (38-126); Anion Gap 11 mmol/L; Blood Urea Nitrogen 29 mg/dL (9-20); Calcium 10.3 mg/dL (8.4-10.2); Carbon Dioxide 22 mmol/L (22-30); Chloride 106 mmol/L (98-107); Glucose 126 mg/dL (74-99); Lipase 478 U/L (23-300); Magnesium 1.7 mg/dL (1.6-2.3); Non-African American GFR(CKD) >90 (>60 ml/min/1.73 sqM); Potassium 4.9 mmol/L (3.5-5.1); Sodium 139 mmol/L (137-145); Total Bilirubin 0.9 mg/dL (0.2-1.3); Total Protein 7.3 g/dL (6.3-8.2)
[2024-02-14 00:22] LABS: NT-Pro-B-Type Natriuretic Pept 109 pg/mL
--- NOTE | 2024-02-14 00:32 | XR ---
EXAMINATION TYPE: XR chest 2V DATE OF EXAM: 02/14/2024 COMPARISON: Chest x-ray November 16, 2023 HISTORY: Chest pain TECHNIQUE: Frontal and lateral views of the chest are obtained. FINDINGS: There is no suspicious new focal air space opacity, pleural effusion, or pneumothorax seen . The cardiac silhouette size is stable and within normal limits. The osseous structures are intac t. IMPRESSION: No acute cardiopulmonary process.
[2024-02-14 00:52] LABS: Prothrombin Time 10.7 sec (10.0-12.5)
[2024-02-14] MEDS ORDERED: NALOXONE 0.4 MG/ML 1 ML VIAL IV PRN (01:05)
[2024-02-14 06:50] LABS: Glucose,Whole Blood 108 mg/dL (70-110)
[2024-02-14] MEDS ORDERED: HEPARIN SODIUM 1,000 UN/ML (10ML VL) IV PRN (06:52)
[2024-02-14] MEDS: ASPIRIN 81 MG PO STA (06:58)
[2024-02-14] MEDS ORDERED: HEPARIN SODIUM,PORCINE (1 ML) 2,500 UNIT in SODIUM CHLORIDE 0.9% 250 ML IRRIGATION PRN (07:00)
[2024-02-14] MEDS ORDERED: HEPARIN SODIUM,PORCINE 10,000 UNIT in SODIUM CHLORIDE 0.9% 1,000 ML IRRIGATION PRN (07:00)
[2024-02-14] MEDS: HEPARIN SOD,PORK IN 0.45% NACL 25,000 UNIT in 0.45% NACL 1 250ML.BAG IV SCH (07:06)
[2024-02-14] MEDS: HEPARIN SODIUM 1,000 UN/ML (10ML VL) IV ONE ×2 (07:08→15:02)
[2024-02-14] MEDS ORDERED: DEXTROSE 50% SYRINGE 50 ML IVP PRN ×2 (07:44)
--- NOTE | 2024-02-14 08:10 | P.HPIM ---
History of Present Illness H&P Date: 02/14/24 Chief Complaint: Chest pain This is a 73-year-old male with past medical history of CAD, [place], stenting, diabetes mellitus type 2, diabetic neuropathy presented to the ED with chest pain. Previously he followed with Dr. Oshea, now follows with Dr. Haines, cardiology, prior cardiac catheterization with stent in 2020, last stress test approximately 1-1/2 years ago-does not recall specifics. 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 Denied chest pain. Denied shortness of breath. proceeded to his PCP, received antibiotic regimen and steroids for potential upper respiratory infection, completed, treatment. States he and his walk daily and noticed increased fatigue after walking, requiring him to sit down. Symptoms returned, runny nose ,cough, lost appetite accompanied by nausea and vomiting and recurrent left arm numbness while at rest. Presented to the ER, third troponin mildly elevated 0.048, lipase 478. EKG reported sinus rhythm right bundle branch block. Chest x-ray reported no acute cardiopulmonary process .afebrile, WBC 17.9, hemoglobin 15.8, platelets 292, INR 1, sodium 139, potassium 4.9, bicarb 22, BUN 29, creatinine 0.77, magnesium 1.7, blood sugars controlled. Heparin drip initiated in the ER with cardiology consulted. Currently denies chest pain, palpitations or shortness of breath. Denies sore throat. Reports marginal left arm numbness. Review of Systems ROS Statement: Those systems with pertinent positive or pertinent negative responses have been documented in the HPI. ROS Other: All systems not noted in ROS Statement are negative. Past Medical History Past Medical History: Coronary Artery Disease (CAD), Chest Pain / Angina, Diabetes Mellitus, GERD/Reflux, Hyperlipidemia, Hypertension, Myocardial Infarction ([place]), Skin Disorder Additional Past Medical History / Comment(s): NIDDM, cardiac murmur, 2 previous MIs, L ear deafness, benign colon polyps, ROSACEA, Last Myocardial Infarction Date:: 04/22/16 History of Any Multi-Drug Resistant Organisms: None Reported Past Surgical History: Adenoidectomy, Ear Surgery, Heart Catheterization, Heart Catheterization With Stent, Orthopedic Surgery, Tonsillectomy Additional Past Surgical History / Comment(s): 01/28/16 PTCA and stent and April 2016 and in June 2017, L ear mastoid surgery, colonoscopies/polypectomies, L hand index finger amputated, has phantom pain at times. Past Anesthesia/Blood Transfusion Reactions: No Reported Reaction Date of Last Stent Placement:: 06/28/17 Past Psychological History: No Psychological Hx Reported Smoking Status: Former smoker Past Alcohol Use History: None Reported Past Drug Use History: None Reported - Past Family History Father Family Medical History: Cancer, Coronary Artery Disease (CAD) Additional Family Medical History / Comment(s): Father had CABG prior to age 50yrs. He of esophageal cancer at the age of 79 yrs. Mother Family Medical History: Congestive Heart Failure (CHF), Osteoarthritis (OA) Additional Family Medical History / Comment(s): Mother of CHF at 86yrs of age. Medications and Allergies Home Medications Medication Instructions Recorded Confirmed Type Metoprolol Tartrate 12.5 mg PO DAILY 06/18/17 02/14/24 History metFORMIN HCL [Glucophage] 1,500 mg PO DAILY 06/18/17 02/14/24 History Omeprazole 20 mg PO DAILY 06/25/17 02/14/24 History Atorvastatin [Lipitor] 40 mg PO HS 03/03/18 02/14/24 History Insulin Degludec [Tresiba 40 units SQ DAILY 06/14/18 02/14/24 History Flextouch U-100 Pen] Nitroglycerin Sl Tabs [Nitrostat] 0.4 mg SL Q5M PRN 09/24/20 02/14/24 History Cholecalciferol [Vitamin D3 (25 50 mcg PO DAILY 02/03/22 02/14/24 History Mcg = 1000 Iu)] Cyanocobalamin (Vitamin B-12) 500 mcg PO DAILY 02/03/22 02/14/24 History [Vitamin B-12] Empagliflozin [Jardiance] 25 mg PO DAILY 02/03/22 02/14/24 History Multivit-Min/Folic/Vit K/Lycop 1 tab PO DAILY 02/03/22 02/14/24 History [Men's Multivitamin Tablet] Ubidecarenone [Co Q-10] 200 mg PO DAILY 02/03/22 02/14/24 History Vitality Complex 1 tab PO DAILY 02/03/22 02/14/24 History lisinopriL [Zestril] 2.5 mg PO DAILY 02/03/22 02/14/24 History tadalafiL [Cialis] 20 mg PO DAILY PRN 02/03/22 02/14/24 History Aspirin EC [Ecotrin] 325 mg PO DAILY 11/16/23 02/14/24 History Semaglutide [Ozempic] 1 mg SQ FERNANDEZ 11/16/23 02/14/24 History Vitamin C 240mg Gummy 240 mg PO DAILY 11/16/23 02/14/24 History Allergies Allergy/AdvReac Type Severity Reaction Status Date / Time Penicillins Allergy Unknown Rash/Hives Verified 02/14/24 07:18 Physical Exam Vitals: Vital Signs Temp Pulse Resp BP Pulse Ox 02/14/24 06:23 86 17 113/68 99 02/14/24 04:48 88 19 95/53 99 02/14/24 03:29 98.6 F 81 20 101/59 95 02/14/24 03:00 88 16 106/61 97 02/14/24 01:00 89 20 118/77 97 02/13/24 23:10 97.6 F 76 20 123/71 100 Intake and Output 02/13/24 02/14/24 02/14/24 22:59 06:59 14:59 Other: Weight 76.657 kg PHYSICAL EXAM: VITAL SIGNS: [As above] GENERAL: Alert and oriented x 3, sitting up on stretcher, no acute distress HEENT: Normocephalic, atraumatic ,conjunctivae normal. eyes normal. NECK: Supple, no JVD. No thyroid enlargement. No LNs CARDIOVASCULAR: S1, S2 regular. No murmur RESPIRATION: Unlabored, equal air entry, lungs clear to auscultation. ABDOMEN: Soft, nondistended, nontender . No guarding. no masses palpable. No ascites, No hepatosplenomegaly.Bowel sounds heard. LEGS: No edema. no swelling NERVOUS SYSTEM: Cranial N 2-12 grossly normal. No focal deficits. Strength and sensation grossly intact. Skin: Warm and dry, no rash Results CBC & Chem 7: 02/13/24 23:42 02/13/24 23:42 Labs: Abnormal Lab Results - Last 24 Hours (Table) 02/13/24 02/13/24 02/13/24 Range/Units 23:42 23:42 23:42 WBC 17.9 H (3.8-10.6) k/uL Neutrophils # 15.8 H (1.3-7.7) k/uL Lymphocytes # 0.8 L (1.0-4.8) k/uL APTT 21.0 L (22.0-30.0) sec BUN 29 H (9-20) mg/dL Glucose 126 H (74-99) mg/dL Calcium 10.3 H (8.4-10.2) mg/dL Troponin I (0.000-0.034) ng/mL Lipase 478 H (23-300) U/L 02/14/24 Range/Units 05:51 WBC (3.8-10.6) k/uL Neutrophils # (1.3-7.7) k/uL Lymphocytes # (1.0-4.8) k/uL APTT (22.0-30.0) sec BUN (9-20) mg/dL Glucose (74-99) mg/dL Calcium (8.4-10.2) mg/dL Troponin I 0.048 H* (0.000-0.034) ng/mL Lipase (23-300) U/L Assessment and Plan Assessment: Left arm numbness, exertional, 1 out of 3 mildly elevated troponins, Mildly elevated lipase, possible mild pancreatitis accompanied by nausea and vomiting Recent upper respiratory infection, completed treatment Leukocytosis CAD, history of MIs ,stenting Hypertension Hyperlipidemia Diabetes mellitus type 2, hemoglobin A1c pending Diabetic neuropathy Former nicotine dependence Plan: Continue on current medication regimen ,monitoring and symptomatic treatment. Maintain n.p.o., IV fluid hydration. continue anticoagulation with heparin drip. Echo pending. evaluated by cardiology, repeat troponin level with cardiac catheterization ordered for today. The impression and plan of care has been dictated as directed. : I performed a history and examination of this patient, discussed the same with the dictator. I agree with the dictator's note ,documented as a scribe. Any additional findings or plans will be noted.
[2024-02-14] MEDS: PANTOPRAZOLE 40 MG TABLET PO SCH (08:27)
[2024-02-14] MEDS: METOPROLOL TARTRATE 12.5 MG TAB PO SCH (08:27)
[2024-02-14 08:33] LABS: Glucose,Whole Blood 102 mg/dL (70-110)
[2024-02-14] MEDS ORDERED: ALPRAZolam 0.5 MG TAB PO PRN (10:05)
[2024-02-14] MEDS ORDERED: NITROGLYCERIN SL TABS 0.4 MG TAB SUBLINGUAL PRN (10:05)
[2024-02-14] MEDS ORDERED: ALPRAZolam 0.25 MG TAB PO PRN (10:05)
--- NOTE | 2024-02-14 10:15 | P.CRDCN ---
History of Present Illness Consult date: 02/14/24 Consult reason: chest pain History of present illness: This is a 73-year-old male patient of Dr. Liza Haines with past medical history of coronary artery disease status post angioplasty of the LAD and diagonal branch, dyslipidemia, hypertension, diabetes mellitus type 2. We have been asked to evaluate the patient for chest pain. Patient states that he had an upper respiratory infection that was quite severe saw his primary care and was on antibiotics and steroids. His sore throat was better but he continued to have a runny nose and went back to his PCP and was given additional medications. 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 He calls it a fuzzy feeling in his left arm. Then yesterday he lost his appetite and around 8 PM started having nausea and vomiting and he still had the feeling into the left arm. He decided to come into the hospital for further evaluation. He does have occasional dry cough. The drainage seems to is resolved. Patient is seen today in the emergency center. He is been started on a heparin drip. EKG: Right bundle branch block Chest x-ray: No acute findings Laboratory studies: WBC 17.9, hemoglobin 15.8. INR 1. Troponins negative x 2 and third troponin 0.048. Calcium 10.3. BUN 29 creatinine 0.77. Lipase 478. Home cardiac medications: Aspirin 325 mg daily, atorvastatin 40 mg at bedtime, Jardiance 25 mg daily, lisinopril 2.5 mg daily, metoprolol tartrate 12.5 mg daily, Nitrostat as needed. Cardiac catheterization performed 02/01/2021 in the setting of a non-ST OR by Dr. RO Harp revealed 80% mid diagonal lesion, 80% mid PLV lesion but PLV is less then 1.5 mm. LAD stent and proximal ostial diagonal stent patent. Circumflex marginal stent is patent. RCA and PDA branch of the RCA have no significant disease. Subsequently, patient underwent PCI of the major diagonal branch. Cardiolite stress test performed 04/25/2023 in the office revealed excellent exercise tolerance. Inconclusive EKG part of the stress test due to baseline EKG abnormalities. Normal myocardial perfusion and function. Echocardiogram performed on 09/25/2020 revealed EF 55 to 60%, borderline concentric left ventricular hypertrophy. No aortic stenosis or regurgitation. Mild mitral regurgitation and mild tricuspid regurgitation. Review Of Systems: At the time of my exam: CONSTITUTIONAL: Denies fever or chills. HEENT: Denies blurred vision, vision changes, or eye pain. Denies hemoptysis CARDIOVASCULAR: Denies chest pain. Denies orthopnea. Denies PND. Denies palpitations RESPIRATORY: Denies shortness of breath. GASTROINTESTINAL: Denies abdominal pain. Denies nausea or vomiting. HEMATOLOGIC: Denies bleeding disorders. GENITOURINARY: Denies any blood in urine. SKIN: Denies puritis. Denies rash. Physical examination: Gen: This is a 73-year-old male in no acute distress VS: reviewed HEENT: Head is atraumatic, normocephalic. Pupils equal, round. Sclerae is anicteric. NECK: Supple. No JVD. LUNGS: Clear to auscultation. No wheezes or rhonchi. No intercostal retractions. HEART: Regular rate and rhythm. No murmur. ABDOMEN: Soft No tenderness. EXTREMITIES: No pedal edema. No calf tenderness. NEUROLOGICAL: Patient is awake, alert and oriented x3. Assessment: Exertional left arm numbness, rule out non-ST elevated OR Possible viral myocarditis Possible pancreatitis with elevated lipase, nausea and vomiting History of coronary artery disease with previous stenting of the LAD, diagonal branch Hypertension Hyperlipidemia Diabetes mellitus type 2 Plan: Resume patient's home cardiac medications Obtain stat troponin Schedule patient for cardiac catheterization with Dr. Peoples this afternoon Continue heparin drip Patient may have light meal and then n.p.o. until cardiac catheterization Obtain 2-D echocardiogram and Doppler study to assess cardiac structure and function Further recommendations to follow based upon clinical course Thank you kindly for this consultation. Nurse practitioner note has been reviewed, I agree with documented findings and plan of care. Patient was seen and examined. Past Medical History Past Medical History: Coronary Artery Disease (CAD), Chest Pain / Angina, Diabetes Mellitus, GERD/Reflux, Hyperlipidemia, Hypertension, Myocardial Infarction ([place]), Skin Disorder Additional Past Medical History / Comment(s): NIDDM, cardiac murmur, 2 previous MIs, L ear deafness, benign colon polyps, ROSACEA, Last Myocardial Infarction Date:: 04/22/16 History of Any Multi-Drug Resistant Organisms: None Reported Past Surgical History: Adenoidectomy, Ear Surgery, Heart Catheterization, Heart Catheterization With Stent, Orthopedic Surgery, Tonsillectomy Additional Past Surgical History / Comment(s): 01/28/16 PTCA and stent and April 2016 and in June 2017, L ear mastoid surgery, colonoscopies/polypectomies, L hand index finger amputated, has phantom pain at times. Past Anesthesia/Blood Transfusion Reactions: No Reported Reaction Date of Last Stent Placement:: 06/28/17 Past Psychological History: No Psychological Hx Reported Smoking Status: Former smoker Past Alcohol Use History: None Reported Past Drug Use History: None Reported - Past Family History Father Family Medical History: Cancer, Coronary Artery Disease (CAD) Additional Family Medical History / Comment(s): Father had CABG prior to age 50yrs. He of esophageal cancer at the age of 79 yrs. Mother Family Medical History: Congestive Heart Failure (CHF), Osteoarthritis (OA) Additional Family Medical History / Comment(s): Mother of CHF at 86yrs of age. Medications and Allergies Home Medications Medication Instructions Recorded Confirmed Type Metoprolol Tartrate 12.5 mg PO DAILY 06/18/17 02/14/24 History metFORMIN HCL [Glucophage] 1,500 mg PO DAILY 06/18/17 02/14/24 History Omeprazole 20 mg PO DAILY 06/25/17 02/14/24 History Atorvastatin [Lipitor] 40 mg PO HS 03/03/18 02/14/24 History Insulin Degludec [Tresiba 40 units SQ DAILY 06/14/18 02/14/24 History Flextouch U-100 Pen] Nitroglycerin Sl Tabs [Nitrostat] 0.4 mg SL Q5M PRN 09/24/20 02/14/24 History Cholecalciferol [Vitamin D3 (25 50 mcg PO DAILY 02/03/22 02/14/24 History Mcg = 1000 Iu)] Cyanocobalamin (Vitamin B-12) 500 mcg PO DAILY 02/03/22 02/14/24 History [Vitamin B-12] Empagliflozin [Jardiance] 25 mg PO DAILY 02/03/22 02/14/24 History Multivit-Min/Folic/Vit K/Lycop 1 tab PO DAILY 02/03/22 02/14/24 History [Men's Multivitamin Tablet] Ubidecarenone [Co Q-10] 200 mg PO DAILY 02/03/22 02/14/24 History Vitality Complex 1 tab PO DAILY 02/03/22 02/14/24 History lisinopriL [Zestril] 2.5 mg PO DAILY 02/03/22 02/14/24 History tadalafiL [Cialis] 20 mg PO DAILY PRN 02/03/22 02/14/24 History Aspirin EC [Ecotrin] 325 mg PO DAILY 11/16/23 02/14/24 History Semaglutide [Ozempic] 1 mg SQ FERNANDEZ 11/16/23 02/14/24 History Vitamin C 240mg Gummy 240 mg PO DAILY 11/16/23 02/14/24 History Allergies Allergy/AdvReac Type Severity Reaction Status Date / Time Penicillins Allergy Unknown Rash/Hives Verified 02/14/24 07:18 Physical Exam Vitals: Vital Signs Temp Pulse Resp BP Pulse Ox 02/14/24 06:23 86 17 113/68 99 02/14/24 04:48 88 19 95/53 99 02/14/24 03:29 98.6 F 81 20 101/59 95 02/14/24 03:00 88 16 106/61 97 02/14/24 01:00 89 20 118/77 97 02/13/24 23:10 97.6 F 76 20 123/71 100 Intake and Output 02/13/24 02/14/24 02/14/24 22:59 06:59 14:59 Other: Weight 76.657 kg Results 02/13/24 23:42 02/13/24 23:42 Cardiac Enzymes 02/13/24 02/13/24 02/14/24 Range/Units 23:42 23:42 02:53 AST 35 (17-59) U/L Troponin I <0.012 0.012 (0.000-0.034) ng/mL 02/14/24 Range/Units 05:51 AST (17-59) U/L Troponin I 0.048 H* (0.000-0.034) ng/mL Coagulation 02/13/24 Range/Units 23:42 PT 10.7 (10.0-12.5) sec APTT 21.0 L (22.0-30.0) sec CBC 02/13/24 Range/Units 23:42 WBC 17.9 H (3.8-10.6) k/uL RBC 5.22 (4.30-5.90) m/uL Hgb 15.8 (13.0-17.5) gm/dL Hct 49.7 (39.0-53.0) % Plt Count 292 (150-450) k/uL Comprehensive Metabolic Panel 02/13/24 Range/Units 23:42 Sodium 139 (137-145) mmol/L Potassium 4.9 (3.5-5.1) mmol/L Chloride 106 (98-107) mmol/L Carbon Dioxide 22 (22-30) mmol/L BUN 29 H (9-20) mg/dL Creatinine 0.77 (0.66-1.25) mg/dL Glucose 126 H (74-99) mg/dL Calcium 10.3 H (8.4-10.2) mg/dL AST 35 (17-59) U/L ALT 47 (4-49) U/L Alkaline Phosphatase 103 (38-126) U/L Total Protein 7.3 (6.3-8.2) g/dL Albumin 4.9 (3.5-5.0) g/dL Current Medications Generic Name Dose Route Start Last Admin Trade Name Freq PRN Reason Stop Dose Admin Heparin Sodium (Porcine) 0 unit 02/14/24 06:52 Heparin Sodium 1,000 Un/Ml (10ml Vl) IV PER PROTOCOL PRN Low PTT Protocol Heparin Sodium/Sodium Chloride 250 mls @ 9.199 mls/hr 02/14/24 07:00 02/14/24 07:06 25,000 unit/ Sodium Chloride IV 12 units/kg/hr .Q24H PAOLO 9.199 mls/hr Administration Protocol 12 UNITS/KG/HR Naloxone HCl 0.2 mg 02/14/24 01:05 Naloxone 0.4 Mg/Ml 1 Ml Vial IV Q2M PRN Opioid Reversal Ondansetron HCl 4 mg 02/14/24 01:05 Ondansetron 4 Mg/2 Ml Vial IVP Q8HR PRN Nausea And Vomiting Intake and Output 02/13/24 02/14/24 02/14/24 22:59 06:59 14:59 Other: Weight 76.657 kg 02/13/24 23:42 02/13/24 23:42
[2024-02-14] MEDS: ASPIRIN 325 MG TAB PO STA (10:39)
[2024-02-14] MEDS: ATORVASTATIN 80 MG TAB PO STA (10:43)
[2024-02-14] MEDS: SODIUM CHLORIDE 0.9% 1,000 ML IV SCH ×2 (11:12→18:18)
[2024-02-14 11:56] LABS: Glucose,Whole Blood 104 mg/dL (70-110)
[2024-02-14] MEDS: INSULIN ASPART (NovoLOG) 100 UNIT/ML VIAL SQ SCH (11:58)
[2024-02-14 14:27] VITALS: RESP 16
[2024-02-14] MEDS ORDERED: ONDANSETRON 4 MG/2 ML VIAL ONE (14:28)
[2024-02-14] MEDS: ONDANSETRON 4 MG/2 ML VIAL IVP ONE (14:29)
[2024-02-14] MEDS: IV FLUID CONTINUATION 1,000 ML IV ONE (14:30)
[2024-02-14] MEDS ORDERED: LIDOCAINE 1% INJ 10MG/ML (20 ML MDV) ONE (14:35)
[2024-02-14] MEDS ORDERED: HEPARIN SODIUM 1,000 UN/ML (10ML VL) ONE (14:36)
[2024-02-14] MEDS ORDERED: fentaNYL (PF) 50 MCG/ML 2 ML AMP ONE (14:36)
[2024-02-14] MEDS ORDERED: VERAPAMIL 2.5 MG/ML 2 ML AMP ONE (14:36)
[2024-02-14] MEDS: fentaNYL (PF) 50 MCG/ML 2 ML AMP IVP ONE (14:51)
[2024-02-14] MEDS: MIDAZOLAM 2 MG/2 ML VIAL IVP ONE (14:51)
[2024-02-14] MEDS: LIDOCAINE 1% INJ 10MG/ML (20 ML MDV) SQ ONE (14:54)
[2024-02-14] MEDS: VERAPAMIL 2.5 MG/ML 2 ML AMP INTRAARTER ONE (14:56)
[2024-02-14] MEDS: IOPAMIDOL-370 100ML BTL INJ ONE (15:08)
[2024-02-14] MEDS ORDERED: RX INFO: IV CONTRAST WAS GIVEN 1 EACH MISC MISCELLANE PRN (16:09)
--- NOTE | 2024-02-14 16:09 | P.CARDCATH ---
Date of Procedure: 02/14/24 Description of Procedure: DIAGNOSTIC CORONARY ANGIOGRAPHY and LEFT HEART CATH REPORT PROCEDURES PERFORMED: Left heart catheterization Selective coronary angiography Moderate conscious sedation 20 mins Right radial access INDICATION: NSTEMI 73-year-old who is known to Dr. Vilchis, prior history of type 2 diabetes, HTN, dyslipidemia, prior CAD s/p bifurcation stenting of LAD and diagonal [place] [address] Perales. He has had previous PCI to LCx in 2017. In 2020 he presented with NSTEMI. At that time he got PCI of proximal diagonal artery Continue present to the hospital because of left-sided arm numbness. The symptoms are very similar to his 2020 presentation. On admission he had minimal elevation of troponin. Resting ECG did not show much changes on comparison to previous ECGs. Because of mild elevated troponins and patient's symptoms, he was taken for cardiac catheterization CONSENT: I have explained the procedural steps of above-mentioned procedures in layman's terms to the patient. I discussed the risks (including but not limited to stroke, emergent vascular or cardiac surgery or ), benefits and alternative therapies for the above-mentioned procedure. I discussed the risks of sedation/analgesia and blood product administration (if indicated). The patient has indicated understanding and acceptance of these risks. Conscious Sedation: Patient's ECG, heart rate, blood pressure, pulse oximetry were monitored throughout the duration of procedure under my direct supervision. [2] mg Versed and [50] mg Fentanyl were used for induction of moderate conscious sedation. Total duration of moderate concious sedation 20 minutes. Patient was experiencing nausea during the procedure for which she was given 4 mg of IV Zofran. His nausea resolved. PROCEDURE: After explaining the risks, benefits and alternatives of the above mentioned procedures in detail to the patient, informed consent was obtained. Patient was taken to the catheterization lab, prepped and draped in usual sterile fashion using universal precuations. Barbow and robbie test were performed to confirm adequate perfusion to fingers. Ultrasound was used to identify the radial artery. 1% lidocaine was infiltrated over the right radial artery. A 6-Gu[place] sheath was placed and secured in the right radial artery using modified Seldinger technique. The sheath was flushed and 5 mg verapamil was administered intra-arterially. J tipped wire was advanced under fluoroscopic guidance. Once the wire tip r eached aortic root 3000 units of IV heparin was given. Patient was on IV heparin drip prior to the procedure and was turned of 40 minutes prior to start of cardiac catheterization procedure. Over the wire JR4 diagnostic catheter was advanced. The wire in place the catheter was manipulated to cross the aortic valve and entered into LV under fluoroscopy guidance. The wire was removed and the catheter was flushed. LV pressures were obtained and pullback was performed under fluoroscopy. Catheter was manipulated to selectively engage the right coronary ostium. Right coronary angiography was performed in different angiographic projections. The JR4 diagnostic catheter was exchanged for a JL 4 diagnostic catheter over the J-wire. The wire was removed, catheter was flushed and manipulated under fluoroscopy to selectively engaged the left coronary ostium. Left coronary angioplasty was performed in different angiographic projections. Catheter was removed over the wire. Radial sheath was flushed. The right radial sheath was removed and a TR band was placed with excellent patent hemostasis was achieved. The patient tolerated the procedure well. Patient was transported back to the post catheterization holding area in stable condition. Angiographic images were reviewed in detail. HEMODYNAMICS: Aortic pressure 138/70 mmHg LV pressures 140/5 mmHg. LVEDP 14 mmHg. There was no significant gradient across the aortic valve. SELECTIVE CORONARY ARTERIOGRAPHY: LEFT MAIN: The left main is short, large caliber vessel, and appears to be free from any significant disease. Distally bifurcates into LAD and LCx. LEFT ANTERIOR DESCENDING CORONARY ARTERY: LAD is a large caliber vessel which wraps around to the apex. Proximal LAD appears angiographically normal. Proximal LAD gives rise to small diagonal 1 branch. Diagonal 2 branch is a large-caliber and has a prior stent which is patent. Ostium of diagonal 2 appears to have 20 to 30% stenosis. After giving the diagonal 2 branch, mid LAD has a stent which appears to be patent. Distal LAD has mild luminal irregularities and is mildly tortuous. LEFT CIRCUMFLEX CORONARY ARTERY: It is nondominant vessel. LCx has mild luminal regularities. It gives rise to a large OM1 branch which has a high takeoff of. Proximal OM1 appears to have a prior stent which appears to be patent. Distal end of the stent appears to have 30% luminal narrowing. Otherwise OM1 has mild luminal irregularities. After giving OM branch, LCx is a 2 mm vessel and has mild luminal irregularities. RIGHT CORONARY ARTERY: Dominant vessel. Proximal and mid RCA has mild luminal irregularities. The junction of mid and distal RCA appears to have 30% disease. Distal LAD has mild luminal irregularities. It bifurcates into a medium size PDA branch and small PL branches. IMPRESSION: Mild diffuse nonobstructive CAD Patent stent in LAD, diagonal 2 and OM1 Normal left sided filling pressures PLAN: Aggressive risk factor modification per most recent ACC/AHA guidelines. 125 cc fluids for 3 hours Performing Physician Yariel Peoples MD, FACC, RPVI Thank you for allowing [facility] to participate in this patient's care. Feel free to reach out in case of any followup questions.
--- NOTE | 2024-02-14 16:17 | CA ---
Transthoracic Echo Report Name: Lex Garcia Age: 73 Gender: M : 1950 Exam Date: 02/14/2024 10:49 Exam Location: [facility] Ht (in): 71 Wt (lb): 169 Ordering Physician: Jannette Dominique Attending/Referring Phys: [id number], [employer] Janki Hernandez RDCS Procedure CPT: Indications: LVF Cardiac Hx: Technical Quality: Fair Contrast 1: Total Dose (mL): Contrast 2: Total Dose (mL): MEASUREMENTS (Male / Female) Normal Values 2D ECHO LV Diastolic Diameter PLAX 4.9 cm 4.2 - 5.9 / 3.9 - 5.3 cm LV Systolic Diameter PLAX 3.4 cm IVS Diastolic Thickness 1.2 cm 0.6 - 1.0 / 0.6 - 0.9 cm LVPW Diastolic Thickness 1.3 cm 0.6 - 1.0 / 0.6 - 0.9 cm LV Relative Wall Thickness 0.5 RV Internal Dim ED PLAX 3.9 cm LA Volume 50.9 cm??? 18 - 58 / 22 - 52 cm??? LA Volume Index 26.0 cm???/m??? 16 - 28 cm???/m??? M-MODE Aortic Root Diameter MM 3.4 cm LA Systolic Diameter MM 3.5 cm LA Ao Ratio MM 1.0 AV Cusp Separation MM 1.9 cm DOPPLER LVOT Peak Velocity 120.6 cm/s LVOT Peak Gradient 5.8 mmHg LVOT Velocity Time Integral 28.5 cm MV Area PHT 3.6 cm??? Mitral E Point Velocity 68.5 cm/s Mitral A Point Velocity 94.5 cm/s Mitral E to A Ratio 0.7 MV Deceleration Time 208.0 ms MV E' Velocity 9.5 cm/s Mitral E to MV E' Ratio 7.2 TR Peak Velocity 238.6 cm/s TR Peak Gradient 22.8 mmHg Right Ventricular Systolic Press 27.4 mmHg FINDINGS Left Ventricle Mildly increased left ventricular wall thickness. Left ventricular cavity size normal. Normal left ventricular systolic function with no obvious regional wall motion abnormalities. Left ventricular ejection fraction is estimated at 55-60 %. Right Ventricle Mild right ventricular dilatation. Right ventricular systolic pressure within normal limits. Right Atrium Normal right atrial size. Left Atrium Normal left atrial size. Mitral Valve Structurally normal mitral valve. Mitral valve thickened. Mild mitral annular calcification. Mild mitral regurgitation. Aortic Valve Trileaflet aortic valve. No aortic valve stenosis or regurgitation. Tricuspid Valve Structurally normal tricuspid valve. Mild tricuspid regurgitation. Pulmonic Valve Structurally normal pulmonic valve. Trace pulmonic regurgitation. Pericardium No pericardial effusion. Aorta Normal size aortic root and proximal ascending aorta. CONCLUSIONS Normal LV size and systolic function Previewed by: Dr. Jacky Wetzel MD (Electronically Signed) Final Date: 14 February 2024 16:17
[2024-02-14 16:34] LABS: Glucose,Whole Blood 91 mg/dL (70-110)
[2024-02-14 20:15] LABS: Glucose,Whole Blood 116 mg/dL (70-110)
[2024-02-14] MEDS: ATORVASTATIN 40 MG TAB PO SCH (20:29)
[2024-02-14] MEDS: PROCHLORPERAZINE INJ 10 MG/2 ML VIAL IVP PRN (20:29)
[2024-02-15] MEDS: ONDANSETRON 4 MG/2 ML VIAL IVP PRN (00:04)
[2024-02-15 06:04] LABS: Glucose,Whole Blood 102 mg/dL (70-110)
[2024-02-15 08:17] LABS: African American GFR (CKD) >90 (>60 ml/min/1.73 sqM); Anion Gap 7 mmol/L; Blood Urea Nitrogen 18 mg/dL (9-20); Calcium 8.6 mg/dL (8.4-10.2); Carbon Dioxide 23 mmol/L (22-30); Chloride 109 mmol/L (98-107); Glucose 96 mg/dL (74-99); Non-African American GFR(CKD) >90 (>60 ml/min/1.73 sqM); Potassium 4.3 mmol/L (3.5-5.1); Sodium 139 mmol/L (137-145)
[2024-02-15] MEDS: ASPIRIN 81 MG PO SCH (08:38)
[2024-02-15] MEDS: METOPROLOL SUCCINATE (ER) 25 MG TAB.ER.24H PO SCH (08:38)
[2024-02-15 09:08] LABS: Basophils % (A) 1 %; Eosinophils # (A) 0.2 k/uL (0-0.7); Eosinophils % (A) 3 %; HCT 42.2 % (39.0-53.0); HGB 13.4 gm/dL (13.0-17.5); Hypochromasia Slight; Lymphocytes # (A) 0.8 k/uL (1.0-4.8); Lymphocytes % (A) 13 %; MCH 31.2 pg (25.0-35.0); MCHC 31.7 g/dL (31.0-37.0); MCV 98.6 fL (80.0-100.0); Mean Platelet Volume 8.2; Monocytes # (A) 0.4 k/uL (0-1.0); Monocytes % (A) 7 %; Neutrophils # (A) 4.7 k/uL (1.3-7.7); Neutrophils % (A) 75 %; Platelet Count 183 k/uL (150-450); RBC 4.28 m/uL (4.30-5.90); RDW 13.4 % (11.5-15.5); WBC 6.2 k/uL (3.8-10.6)
[2024-02-15 11:30] LABS: Glucose,Whole Blood 154 mg/dL (70-110)
[2024-02-15] MEDS: CLOPIDOGREL 75 MG TAB PO SCH (11:40)
[2024-02-15 12:38] VITALS: BP 135/71; PULSE 61; TEMP 97.5
--- NOTE | 2024-02-15 13:04 | P.PN ---
Subjective HISTORY OF PRESENT ILLNESS: This is a 73-year-old male patient of Dr. Liza Haines with past medical history of coronary artery disease status post angioplasty of the LAD and diagonal branch, dyslipidemia, hypertension, diabetes mellitus type 2. We have been asked to evaluate the patient for chest pain. Patient states that he had an upper respiratory infection that was quite severe saw his primary care and was on antibiotics and steroids. His sore throat was better but he continued to have a runny nose and went back to his PCP and was given additional medications. He states that on he was at a [employer] was playing drums and felt he overdid it and that is when the pain in his left arm developed. He calls it a fuzzy feeling in his left arm. Then yesterday he lost his appetite and around 8 PM started having nausea and vomiting and he still had the feeling into the left arm. He decided to come into the hospital for further evaluation. He does have occasional dry cough. The drainage seems to is resolved. Patient is seen today in the emergency center. He is been started on a heparin drip. EKG: Right bundle branch block Chest x-ray: No acute findings Laboratory studies: WBC 17.9, hemoglobin 15.8. INR 1. Troponins negative x 2 and third troponin 0.048. Calcium 10.3. BUN 29 creatinine 0.77. Lipase 478. Home cardiac medications: Aspirin 325 mg daily, atorvastatin 40 mg at bedtime, Jardiance 25 mg daily, lisinopril 2.5 mg daily, metoprolol tartrate 12.5 mg daily, Nitrostat as needed. Cardiac catheterization performed 02/01/2021 in the setting of a non-ST IA by Dr. RO Harp revealed 80% mid diagonal lesion, 80% mid PLV lesion but PLV is less then 1.5 mm. LAD stent and proximal ostial diagonal stent patent. Circumflex marginal stent is patent. RCA and PDA branch of the RCA have no significant disease. Subsequently, patient underwent PCI of the major diagonal branch. Cardiolite stress test performed 04/25/2023 in the office revealed excellent exercise tolerance. Inconclusive EKG part of the stress test due to baseline EKG abnormalities. Normal myocardial perfusion and function. Echocardiogram performed on 09/25/2020 revealed EF 55 to 60%, borderline concentric left ventricular hypertrophy. No aortic stenosis or regurgitation. Mild mitral regurgitation and mild tricuspid regurgitation. 02/15/2024 Patient is s/p cardiac cath with Dr. Peoples revealing mild diffuse nonobstructive CAD and patent stent in LAD, diagonal 2, and OM1. right radial site with pulse present. No hematoma noted. Vital signs are stable. Patient denies any chest pain or pressure. He denies any shortness of breath. Patient states his arm numbness is significantly improved today. PHYSICAL EXAM: VITAL SIGNS: Reviewed. GENERAL: Well-developed in no acute distress. NECK: Supple. No JVD or thyromegaly LUNGS: Respirations even and unlabored. Lungs essentially clear to auscultation bilaterally. HEART: Regular rate and rhythm. S1 and S2 heard. EXTREMITIES: Normal range of motion. No clubbing or cyanosis. Peripheral pulses intact. No lower extremity edema ASSESSMENT: Exertional left arm numbness Non-STEMI, S/P cath revealing mild diffuse nonobstructive CAD and patent stents in LAD, diagonal 2, and OM1 Elevated lipase, possible mild pancreatitis History of coronary artery disease with previous stenting of the LAD, diagonal 2, OM1 Hypertension Hyperlipidemia Diabetes mellitus type 2 PLAN: Continue current cardiac medications Add Plavix. Patient instructed to continue Plavix for duration of 6 months. Patient also prescribed aspirin. Continue statin therapy. Goal LDL less than 60. Patient is stable for discharge home today from a cardiac standpoint Patient to follow-up postdischarge in the office with Dr. Haines Nurse practitioner note has been reviewed by physician. Signing provider agrees with the documented findings, assessment, and plan of care documented by NAPPER GRINDER as a scribe. Objective - Vital Signs Vital signs: Vital Signs Temp 97.5 F L 02/15/24 11:30 Pulse 61 02/15/24 11:30 Resp 16 02/15/24 11:30 BP 135/71 02/15/24 11:30 Pulse Ox 95 02/15/24 11:30 FiO2 Intake & Output 02/14/24 02/15/24 02/15/24 18:59 06:59 18:59 Intake Total 697.766 240 Balance 697.766 240 Weight 76.657 kg Intake: IV 450 Intake, IV Titration 67.766 Amount Heparin Sod,Pork in 0.45% 67.766 NaCl 25,000 unit In 0.45 % NaCl 1 250ml.bag @ 12 UNITS/KG/HR 9.199 mls/hr IV .Q24H [facility] Rx#: [id number] Oral 180 240 Other: Voiding Method Toilet Toilet # Voids 1 1 # Bowel Movements 0 - Labs CBC & Chem 7: 02/15/24 07:35 02/15/24 07:35 Labs: Abnormal Lab Results - Last 24 Hours (Table) 02/14/24 02/14/24 02/15/24 Range/Units 17:16 20:14 07:35 RBC (4.30-5.90) m/uL Lymphocytes # (1.0-4.8) k/uL Chloride (98-107) mmol/L POC Glucose (mg/dL) 116 H (70-110) mg/dL Hemoglobin A1c 7.2 H (<=6.0) % Troponin I 0.108 H* (0.000-0.034) ng/mL 02/15/24 02/15/24 02/15/24 Range/Units 07:35 07:35 11:28 RBC 4.28 L (4.30-5.90) m/uL Lymphocytes # 0.8 L (1.0-4.8) k/uL Chloride 109 H (98-107) mmol/L POC Glucose (mg/dL) 154 H (70-110) mg/dL Hemoglobin A1c (<=6.0) % Troponin I (0.000-0.034) ng/mL
--- NOTE | 2024-02-16 12:32 | P.DS ---
Providers Date of admission: 02/14/24 11:26 Expected date of discharge: 02/15/24 Attending physician: Brian Castrejon MD Consults: 02/14/24 01:05 Consult Physician Urgent Consulting Provider: [facility] Consult Reason/Comments: acute chest pain, hx ascad Do you want consulting provider notified?: Yes Primary care physician: PAPA Foley Hospital Course: Final Diagnoses: Left arm numbness, exertional, 1 out of 3 mildly elevated troponins.NSTEMI,status post cardiac cath reporting mild diffuse nonobstructive CAD, patent stent in the LAD, diagonal 2 and OM I with normal left-sided filling pressures. Mildly elevated lipase, possible mild pancreatitis accompanied by nausea and vomiting, resolved Recent upper respiratory infection, completed treatment Leukocytosis CAD, history of MIs ,stenting Hypertension Hyperlipidemia Diabetes mellitus type 2, hemoglobin A1c 7.2, further diabetic education outpatient in clinic with PCP at follow-up visit. Diabetic neuropathy Former nicotine dependence Hospital course:This is a 73-year-old male with past medical history of CAD, GA, stenting, diabetes mellitus type 2, diabetic neuropathy presented to the ED with chest pain. Previously he followed with Dr. Oshea, now follows with Dr. Haines, cardiology, prior cardiac catheterization with stent in 2020, last stress test approximately 1-1/2 years ago-does not recall specifics. 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 Denied chest pain. Denied shortness of breath. proceeded to his PCP, received antibiotic regimen and steroids for potential upper respiratory infection, completed, treatment. States he and his walk daily and noticed increased fatigue after walking, requiring him to sit down. Symptoms returned, runny nose ,cough, lost appetite accompanied by nausea and vomiting and recurrent left arm numbness while at rest. Presented to the ER, third troponin mildly elevated 0.048, lipase 478. EKG reported sinus rhythm right bundle branch block. Chest x-ray reported no acute cardiopulmonary process .afebrile, WBC 17.9, hemoglobin 15.8, platelets 292, INR 1, sodium 139, potassium 4.9, bicarb 22, BUN 29, creatinine 0.77, magnesium 1.7, blood sugars controlled. Heparin drip initiated in the ER with cardiology consulted. Currently denies chest pain, palpitations or shortness of breath. Denies sore throat. Reports marginal left arm numbness. Status post cardiac cath reporting mild diffuse nonobstructive CAD, patent stent in the LAD, diagonal 2 and OM I with normal left-sided filling pressures. Tolerated procedure well, vital signs stable. Denies any chest pain, palpitations or shortness of breath. Left arm numbness improved. Denies cough, congestion. Denies chills or sweats. Denies nausea vomiting, diarrhea or abdominal pain. Blood sugars controlled. Hemoglobin A1c 7.2, further recommendations and diabetic education outpatient in clinic with PCP at follow- up visit. Patient will be discharged home today in stable condition with guarded prognosis. The impression and plan of care has been dictated as directed. : I performed a history and examination of this patient, discussed the same with the dictator. I agree with the dictator's note ,documented as a scribe. Any additional findings or plans will be noted. Patient Condition at Discharge: Stable Plan - Discharge Summary Discharge Rx Participant: Yes New Discharge Prescriptions: New Aspirin EC [Ecotrin Low Dose] 81 mg PO DAILY #30 tab Clopidogrel [Plavix] 75 mg PO DAILY #30 tab Continue metFORMIN HCL [Glucophage] 1,500 mg PO DAILY Omeprazole 20 mg PO DAILY Atorvastatin [Lipitor] 40 mg PO HS Insulin Degludec [Tresiba Flextouch U-100 Pen] 40 units SQ DAILY Nitroglycerin Sl Tabs [Nitrostat] 0.4 mg SL Q5M PRN PRN Reason: Chest Pain lisinopriL [Zestril] 2.5 mg PO DAILY Cyanocobalamin (Vitamin B-12) [Vitamin B-12] 500 mcg PO DAILY tadalafiL [Cialis] 20 mg PO DAILY PRN PRN Reason: ERECTILE DYSFUNCTION Ubidecarenone [Co Q-10] 200 mg PO DAILY Vitality Complex 1 tab PO DAILY Cholecalciferol [Vitamin D3 (25 Mcg = 1000 Iu)] 50 mcg PO DAILY Empagliflozin [Jardiance] 25 mg PO DAILY Multivit-Min/Folic/Vit K/Lycop [Men's Multivitamin Tablet] 1 tab PO DAILY Vitamin C 240mg Gummy 240 mg PO DAILY Semaglutide [Ozempic] 1 mg SQ FERNANDEZ Changed Metoprolol Tartrate 25 mg PO DAILY #0 Discontinued Aspirin EC [Ecotrin] 325 mg PO DAILY Discharge Medication List metFORMIN HCL [Glucophage] 1,500 mg PO DAILY 06/18/17 [History] Omeprazole 20 mg PO DAILY 06/25/17 [History] Atorvastatin [Lipitor] 40 mg PO HS 03/03/18 [History] Insulin Degludec [Tresiba Flextouch U-100 Pen] 40 units SQ DAILY 06/14/18 [History] Nitroglycerin Sl Tabs [Nitrostat] 0.4 mg SL Q5M PRN 09/24/20 [History] Cholecalciferol [Vitamin D3 (25 Mcg = 1000 Iu)] 50 mcg PO DAILY 02/03/22 [History] Cyanocobalamin (Vitamin B-12) [Vitamin B-12] 500 mcg PO DAILY 02/03/22 [History] Empagliflozin [Jardiance] 25 mg PO DAILY 02/03/22 [History] Multivit-Min/Folic/Vit K/Lycop [Men's Multivitamin Tablet] 1 tab PO DAILY 02/03/22 [History] Ubidecarenone [Co Q-10] 200 mg PO DAILY 02/03/22 [History] Vitality Complex 1 tab PO DAILY 02/03/22 [History] lisinopriL [Zestril] 2.5 mg PO DAILY 02/03/22 [History] tadalafiL [Cialis] 20 mg PO DAILY PRN 02/03/22 [History] Semaglutide [Ozempic] 1 mg SQ FERNANDEZ 11/16/23 [History] Vitamin C 240mg Gummy 240 mg PO DAILY 11/16/23 [History] Aspirin EC [Ecotrin Low Dose] 81 mg PO DAILY #30 tab 02/15/24 [Rx] Clopidogrel [Plavix] 75 mg PO DAILY #30 tab 02/15/24 [Rx] Metoprolol Tartrate 25 mg PO DAILY #0 02/15/24 [Rx] Follow up Appointment(s)/Referral(s): Brian Castrejon MD [STAFF PHYSICIAN] - 02/20/24 10:30 am (At the [place] office. ) Markie Haines MD [STAFF PHYSICIAN] - 03/05/24 3:15 pm ([facility]. ) Patient Instructions/Handouts: After Radial Heart Catheterization (GEN) Discharge Disposition: HOME SELF-CARE
== END 2024-02-15 13:48 | disposition home or self-care (01) | DRG 280 ==
LOC: EC 23:09 → 6NMEDSUR 02-14 01:08 → OBSVTOIN 02-14 11:26 → 6NMEDSUR 02-14 13:27 → 3SCARD 02-14 15:07
PROVIDERS: ADMIT Family Medicine; ATTEND Family Medicine
PROC: 4A023N7 Measurement of Cardiac Sampling and Pressure, Left Heart, Percutaneous Approach (ICD-10-PCS; principal; 2024-02-14 13:55)
PROC: B2111ZZ Fluoroscopy of Multiple Coronary Arteries using Low Osmolar Contrast (ICD-10-PCS; principal; 2024-02-14 13:55)
DX: I21.4 Non-ST elevation (NSTEMI) myocardial infarction (principal); K85.90 Acute pancreatitis without necrosis or infection, unspecified; G54.6 Phantom limb syndrome with pain; E11.40 Type 2 diabetes mellitus with diabetic neuropathy, unspecified; D72.829 Elevated white blood cell count, unspecified; I11.9 Hypertensive heart disease without heart failure; I08.1 Rheumatic disorders of both mitral and tricuspid valves; Z79.4 Long term (current) use of insulin; Z28.310 Unvaccinated for COVID-19; Z89.022 Acquired absence of left finger(s); I45.10 Unspecified right bundle-branch block; I25.10 Atherosclerotic heart disease of native coronary artery without angina pectoris; I25.2 Old myocardial infarction; E78.5 Hyperlipidemia, unspecified; H91.92 Unspecified hearing loss, left ear; K21.9 Gastro-esophageal reflux disease without esophagitis; Z79.82 Long term (current) use of aspirin; Z79.84 Long term (current) use of oral hypoglycemic drugs; Z79.85 Long-term (current) use of injectable non-insulin antidiabetic drugs; Z79.899 Other long term (current) drug therapy; Z87.891 Personal history of nicotine dependence; Z95.5 Presence of coronary angioplasty implant and graft; Z88.0 Allergy status to penicillin
CPT/HCPCS: 36415; 71046; 76937; 80048; 80053; 83036; 83690; 83735; 83880; 84484; 85025; 85610; 85730; 93005; 93306; 93458; 96361; 96365; 96366; 96375; 99291